=== PATIENT | male | born 1945 | race Caucasian/White ===

== ENCOUNTER 2019-09-20 17:37 | Emergency (ER) | payer MEDICARE, SELFPAY ==
--- NOTE | ~2019-09-20 | CT_ITS ---
EXAMINATION: CT abdomen pelvis w con DATE: 09/20/2019 19:28 INDICATION: Colon cancer presenting with abdominal pain and diarrhea TECHNIQUE: Computed tomography (CT) of the abdomen and pelvis was performed with 100 mL Omnipaque-350 intravenous contrast. Automated exposure control and iterative reconstruction technique were employe d. The dose-length product was 1248.46 mGy-cm. COMPARISON: 01/07/2019 FINDINGS: Mild atelectasis in the dependent aspect of the lingula, right middle and bilateral lower lobes. Bord kristin heart size with right ventricular enlargement. Enlargement of the right main pulmonary artery which can be seen with pulmonary arterial hypertension. No pericardial or pleural effusion. Bilateral gynecomastia. Again seen is is high attenuation material likely either sludge or gallstones filling the gallbladder which is distended to 4 cm in maximal diameter. There is a trace amount of pericholecystic fluid at the gallbladder fossa versus mild edematous wall thickening which is concerning for acute cholecystitis. A couple small low -attenuation lesions along the inferior margin of the right hepatic lobe the larger measuring 12 mm w hich is unchanged since the prior study and the smaller measuring 5 mm which is not evident on the pr ior study. Spleen, bilateral adrenal glands and right kidney are normal. A few tiny punctate calcific ation is at the body of the pancreas likely sequela of chronic pancreatitis. 4.8 cm exophytic cyst ar ising from the upper pole of the left kidney. Bladder wall thickening and haziness to the immediately surrounding fat which could be seen with cystitis. Prior colon surgery for reported colon cancer wit h anastomotic suture lines at the distal rectum and ileocolic anastomosis. No bowel obstruction. No s ignificant interval change in several soft tissue deposits in the right upper quadrant situated betwe en the hepatic flexure of the colon and the gastric antrum the largest measuring 5.9 x 2.1 cm consist ent with likely peritoneal metastatic disease. No free intraperitoneal gas or fluid. No pathologicall y enlarged abdominal or pelvic lymphadenopathy. Severe lumbar spondylosis. No suspicious lytic or ladonna stic bone lesions. Callus formation about a healing likely chronic posterior left 10th rib fracture. IMPRESSION: 1. Again seen is edematous gallbladder wall thickening versus small amount pericholecystic fluid with heterogeneous attenuation in the gallbladder lumen. Although appearance does raise suspicion for acu te cholecystitis a HIDA scan for after the prior study was normal and differential for the wall thick ening would include liver disease, heart failure or other generalized edema forming states. 2. Likely chronic cystitis with diffuse bladder wall thickening and mild stranding in the surrounding fat. Correlate with urinalysis. 3. No interval change in soft tissue deposits in the right upper quadrant, the largest measuring 5.9 x 2.1 cm suspicious for peritoneal metastatic disease. 4. Borderline heart size with right ventricular enlargement and enlargement of the right main pulmona ry artery which can be seen with pulmonary arterial hypertension. Reviewed, dictated and finalized at location A. IMPRESSION: 1. Again seen is edematous gallbladder wall thickening versus small amount talat cholecystic fluid with heterogeneous attenuation in the gallbladder lumen. Alth ough appearance does raise suspicion for acute cholecystitis a HIDA scan for af ter the prior study was normal and differential for the wall thickening would i nclude liver disease, heart failure or other generalized edema forming states. 2. Likely chronic cystitis with diffuse bladder wall thickening and mild strand ing in the surrounding fat. Correlate with urinalysis. 3. No interva
[2019-09-20 18:02] VITALS: BP 165/108; PULSE 73; RESP 20; TEMP 36.8; O2SAT 100
[2019-09-20 18:24] LABS: Basophils Percent Auto 0.6 % (0.2-1.2); Eosinophils Absolute Auto 0.2 K/mm3 (0-0.3); Eosinophils Percent Auto 3.1 % (0-4.4); Hematocrit 45.3 % (42.0-52.0); Hemoglobin 14.8 g/dL (14.0-18.0); Immature Granulocyte Absolute 0.03 K/mm3 (0.00-0.031); Immature Granulocyte Percent A 0.4 % (0-0.5); Lymphocytes Absolute Auto 0.95 K/mm3 (0.9-3.2); Lymphocytes Percent Auto 13.5 % (18.3-44.2); Mean Corpuscular HGB Conc 32.7 g/dl (32-36); Mean Corpuscular Hemoglobin 29.9 pg (26-34); Mean Corpuscular Volume 91.5 fl (80-100); Mean Platelet Volume 10.9 fl (7.4-10.4); Monocytes Absolute Auto 0.6 K/mm3 (0.1-0.6); Monocytes Percent Auto 8.3 % (2.6-8.5); Neutrophils Absolute Auto 5.2 K/mm3 (1.3-6.7); Neutrophils Percent Auto 74.1 % (45.5-73.1); Platelet Count Result 143 k/mm3 (150-375); Red Blood Count 4.95 M/mm3 (4.6-6.20); Red Cell Distribution Width 15.9 % (11.5-14.5)
[2019-09-20 18:35] LABS: Alanine Aminotransferase 18 U/L (4-50); Alkaline Phosphatase 111 U/L (38-126); Aspartate Amino Transferase 27 U/L (17-59); Bilirubin,Total 0.6 mg/dL (0.2-1.3); Blood Urea Nitrogen 16 mg/dL (9-20); Calcium 8.6 mg/dL (8.4-10.2); Carbon Dioxide 24 mmol/L (22-30); Chloride 104 mmol/L (98-107); Estimated CRCL calculation 55 ml/min; Estimated Glomerular Filt Rate 59; Glucose 116 mg/dL (75-110); Lipase 31 U/L (23-300); Potassium 3.4 mmol/L (3.4-5.0); Sodium 136 mmol/L (137-145)
[2019-09-20 19:05] VITALS: BP 141/94; PULSE 78; RESP 18; O2SAT 96
--- NOTE | 2019-09-20 19:49 | ED.NAVMDI ---
HPI - Nausea/Vomiting/Diarrhea General Chief complaint: Nausea/Vomiting/Diarrhea Stated complaint: diarrhea Time Seen by Provider: 09/20/19 18:40 Source: patient Mode of arrival: ambulatory Limitations: no limitations History of Present Illness HPI Narrative: This is a 74-year-old male that presents to the emergency department for diarrhea x4 days. Reports he is in a study for an investigational drug for his colon cancer. Reports he takes it oral chemotherapy daily for 21 days and then is off for a week. He is on his eighth cycle of this. Reports he does normally have diarrhea with this chemotherapy medication, but is been worse than usual this time. Denies fever, abdominal pain, vomiting, or hematochezia. Related Data Home Medications Medication Instructions Recorded Confirmed Cholestyramine Light 09/20/19 acetaminophen [Tylenol Arthritis mg PO 09/20/19 Pain] amitriptyline 10 mg PO HS 09/20/19 09/20/19 diclofenac sodium 75 mg PO BID 09/20/19 dicyclomine 10 mg PO BID 09/20/19 diphenoxylate-atropine [Lomotil] 1 tablet PO TID PRN 09/20/19 famotidine [Pepcid] 20 mg PO BID 09/20/19 gabapentin 400 mg PO BID 09/20/19 levothyroxine 50 mcg PO DAILY 09/20/19 [id number] [Creon] cap PO 09/20/19 loperamide [Imodium A-D] 2 mg PO Q4H PRN 09/20/19 methylphenidate HCl [Ritalin] 10 mg PO DAILY 09/20/19 Allergies Allergy/AdvReac Type Severity Reaction Status Date / Time lorazepam Allergy Severe GETS Verified 02/02/19 09:36 RESTLESS AND COMBATIVE alprazolam Allergy Unknown anxiety Verified 01/27/19 14:19 atropine Allergy Unknown Verified 01/27/19 14:19 codeine Allergy Unknown Verified 01/27/19 14:19 PROPOXYPHENE HCL AdvReac Severe N/V Uncoded 02/02/19 09:36 Review of Systems Review of Systems: Narrative: CONSTITUTIONAL: Denies fever GASTROINTESTINAL: Reports diarrhea. Denies abdominal pain, nausea, vomiting GENITOURINARY: Denies dysuria or hematuria. All systems reviewed & are unremarkable except as noted in HPI and below PMFSH Past Medical History Medical History (Updated 09/20/19 @ 22:08 by Dee Smith PA-C) History of BPH History of colon cancer History of hypertension History of hypothyroidism Family History Family History (Updated 09/07/17 @ 08:45 by DOCTOR UNKNOWN) Father Acute myocardial infarction Family history of kidney disease Mother Family history of Parkinson's disease Carcinoma of colon Family history of Alzheimer's disease Social History Social History Smoking status: Never smoker Alcohol intake: never Gender identity (if verbalized by the patient): Male Exam Narrative: Exam Narrative: GENERAL: Well-appearing, obese, and in no acute distress. HEAD: Normocephalic, atraumatic. EYES: EOMI. CHEST: Clear to auscultation. No respiratory distress. No wheezes rales or rhonchi HEART: Regular rate and rhythm. No murmur heard. Normal peripheral pulses. ABDOMEN: Soft, nontender, nondistended, hyperactive bowel sounds. EXTREMITIES: Normal range of motion. No edema. SKIN: Warm, dry, no rash. NEURO: No focal deficits. Alert and oriented x3. PSYCH: Normal mood and affect Course Vital Signs Vital signs: Vital Signs Temperature 98.3 F 09/20/19 18:02 Pulse Rate 73 09/20/19 18:02 Respiratory Rate 20 09/20/19 18:02 Blood Pressure 165/108 H 09/20/19 18:02 Pulse Oximetry 100 09/20/19 18:02 Temperature 98.3 F 09/20/19 18:02 Pulse Rate 78 09/20/19 20:33 Respiratory Rate 18 09/20/19 20:33 Blood Pressure 163/98 H 09/20/19 20:33 Pulse Oximetry 100 09/20/19 20:33 MDM - Nausea/Vomiting/Diarrhea MDM Narrative Medical decision making narrative: Patient presents to the ER for diarrhea x 4 days. Has history of metastatic colon cancer and sees an oncologist at [place]. Is on a clinical trial medication. Has had diarrhea with this medication, but was a little worse than usual. Patient is afebrile and nontoxic-appearin
[2019-09-20 20:10] LABS: Lactic Acid Reflex 0.8 mmol/L (0.7-2.1)
[2019-09-20 20:15] LABS: Add Urine Microscopic? NO; Appearance Urine Clear (Clear); Bilirubin Urine Negative (Negative); Blood Urine Negative (Negative); Color Urine Colorless (Yellow); Glucose Urine UA Negative (Negative); Ketones Urine Negative (Negative); Leukocyte Esterase Ur Negative LEU/UL (Negative); Nitrate Urine Negative (Negative); Protein Urine Negative (Negative); Urobilinogen Urine Negative mg/dL (<2.0)
[2019-09-20 20:17] LABS: Specific Grav Ur 1.004 (1.001-1.035)
[2019-09-20 20:33] VITALS: BP 163/98; PULSE 78; RESP 18; O2SAT 100
[2019-09-20] MEDS: SODIUM CHLORIDE 0.9% IV 500 ML 999 ML IV CONT (21:27)
[2019-09-20 22:20] VITALS: BP 134/84; PULSE 79; RESP 19; TEMP 37.2; O2SAT 100
== END 2019-09-20 22:21 | disposition home or self-care (01) ==
PROVIDERS: Physician Assistant; Emergency Provider Emergency Medicine; PCP Family Medicine
DX: R19.7 Diarrhea, unspecified (principal); I10 Essential (primary) hypertension; E03.9 Hypothyroidism, unspecified; Z85.038 Personal history of other malignant neoplasm of large intestine
CPT/HCPCS: 36415; 74177; 80053; 81003; 83605; 83690; 85025; 99284; J7040; Q9967

== ENCOUNTER 2021-02-10 19:09 | Emergency (ER) | payer MEDICARE, SELFPAY ==
--- NOTE | ~2021-02-10 | CT_ITS ---
EXAMINATION: CT abdomen pelvis wo con DATE: 02/10/2021 23:14 INDICATION: Abdominal pain TECHNIQUE: Computed tomography (CT) of the abdomen and pelvis was performed without intravenous contr ast. The dose-length product (DLP) was 798.30 mGy-cm. Automated exposure control and iterative recons truction technique were employed. COMPARISON: 09/20/2019 FINDINGS: Minimal dependent atelectasis is present in the lung bases. The heart size is normal. Bilat eral gynecomastia is noted. Stones are present in the nondistended gallbladder. A 1.2 cm hypoattenuat ing lesion in the right hepatic lobe previously measured 0.8 cm (image 42). A 2.6 cm hypoattenuating lesion in the posterior right hepatic lobe previously measured 1.9 cm (image 52). The spleen, pancrea s, and adrenal glands are normal. The right kidney is unremarkable. There is a 5.7 cm cyst of the lef t kidney. No pathologically enlarged abdominal or pelvic lymph nodes are identified. There is no free intraperitoneal gas or evidence of bowel obstruction. There is circumferential wall thickening of th e urinary bladder. There is severe lumbar spondylosis. IMPRESSION: 1. Cholelithiasis without evidence of cholecystitis. 2. Indeterminate right hepatic lobe lesions with slight interval enlargement. Follow-up MRI without a nd with contrast recommended. 3. Wall thickening of the urinary bladder which could reflect cystitis or chronic outlet obstruction. Reviewed, dictated and finalized at location B. K ABSORPTION FLOOR LAYER IMPRESSION: 1. Cholelithiasis without evidence of cholecystitis. 2. Indeterminate right hepatic lobe lesions with slight interval enlargement. F ollow-up MRI without and with contrast recommended. 3. Wall thickening of the urinary bladder which could reflect cystitis or chron ic outlet obstruction.
[2021-02-10 19:34] VITALS: BP 168/102; PULSE 68; RESP 16; TEMP 36.2; O2SAT 100
[2021-02-10 19:58] LABS: Basophils Absolute Auto 0.1 K/mm3 (0.0-0.1); Basophils Percent Auto 0.8 % (0.2-1.2); Eosinophils Absolute Auto 0.4 K/mm3 (0-0.3); Hematocrit 42.4 % (42.0-52.0); Immature Granulocyte Absolute 0.02 K/mm3 (0.00-0.031); Immature Granulocyte Percent A 0.3 % (0-0.5); Immature Platelet Fraction Pct 5.7 % (0.9-11.2); Lymphocytes Absolute Auto 1.07 K/mm3 (0.9-3.2); Mean Corpuscular HGB Conc 30.7 g/dl (32-36); Mean Corpuscular Volume 94.4 fl (80-100); Mean Platelet Volume 10.8 fl (7.4-10.4); Monocytes Absolute Auto 0.8 K/mm3 (0.1-0.6); Monocytes Percent Auto 10.5 % (2.6-8.5); Neutrophils Absolute Auto 5.3 K/mm3 (1.3-6.7); Neutrophils Percent Auto 69.4 % (45.5-73.1); Platelet Count Result 145 k/mm3 (150-375); Red Blood Count 4.49 M/mm3 (4.6-6.20); Red Cell Distribution Width 18.3 % (11.5-14.5); White Blood Count 7.7 K/mm3 (4.5-10.0)
[2021-02-10 20:06] LABS: INR 1.1; Prothrombin Time 14.4 Seconds (11.1-14.7)
[2021-02-10 20:07] LABS: Partial Thromboplastin Time 33.7 SECONDS (22.3-36.8)
[2021-02-10 20:20] LABS: Alanine Aminotransferase 14 U/L (4-50); Albumin Level 3.8 g/dL (3.5-5.1); Alkaline Phosphatase 77 U/L (38-126); Anion Gap 11 mmol/L (8-16); Aspartate Amino Transferase 24 U/L (17-59); Bilirubin,Total 0.6 mg/dL (0.2-1.3); Blood Urea Nitrogen 38 mg/dL (9-20); Calcium 9.1 mg/dL (8.4-10.2); Carbon Dioxide 22 mmol/L (22-30); Chloride 106 mmol/L (98-107); Estimated CRCL calculation 37 ml/min; Estimated Glomerular Filt Rate 39; Glucose 90 mg/dL (65-110); Potassium 4.1 mmol/L (3.4-5.0); Sodium 139 mmol/L (137-145)
--- NOTE | 2021-02-10 22:32 | ED.GIBLEED ---
HPI - GI Bleed General Source: RN notes reviewed History of Present Illness HPI Narrative: Patient presents emergency department from home for GI bleed. Patient noted to have dark red blood in his stool since last night states has had several episodes of blood in the stool. Patient states that with this is associated with lower abdominal cramping denies any fevers or chills chest pain or shortness of breath. Patient states he is currently on chemotherapy for colorectal cancer and is followed by oncology at [facility]. Patient denies any nausea vomiting or any other symptoms Related Data Home Medications Medication Instructions Recorded Confirmed Cholestyramine Light 09/20/19 01/08/21 acetaminophen [Tylenol Arthritis mg PO 09/20/19 01/08/21 Pain] diphenoxylate-atropine [Lomotil] 1 tablet PO TID PRN 09/20/19 01/08/21 famotidine [Pepcid] 20 mg PO BID 09/20/19 01/08/21 gabapentin 400 mg PO BID 09/20/19 01/08/21 [id number] [Creon] cap PO 09/20/19 01/08/21 loperamide [Imodium A-D] 2 mg PO Q4H PRN 09/20/19 01/08/21 methylphenidate HCl [Ritalin] 10 mg PO DAILY 09/20/19 01/08/21 levothyroxine 75 mcg capsule 75 mcg PO DAILY 01/23/21 Allergies Allergy/AdvReac Type Severity Reaction Status Date / Time lorazepam Allergy Severe GETS Verified 01/08/21 10:05 RESTLESS AND COMBATIVE alprazolam Allergy Unknown anxiety Verified 01/08/21 10:05 atropine Allergy Unknown Unknown Verified 01/08/21 10:05 codeine Allergy Unknown Unknown Verified 01/08/21 10:05 PROPOXYPHENE HCL AdvReac Severe N/V Uncoded 01/08/21 10:05 Review of Systems Review of Systems: Gen.: Denies fevers or chills ENT: Denies congestion Respiratory: Denies shortness of breath or cough CV: Denies chest pain or palpitations GI: See HPI Musculoskeletal: Denies back pain or muscle pain Neuro: Denies numbness, tingling, weakness or focal weakness Skin: Denies rash Except as documented, all other systems reviewed and negative PMFSH Past Medical History Medical History Colon cancer metastasized to liver History of BPH History of colon cancer History of hypertension History of hypothyroidism Omental metastasis Other abnormal glucose Secondary malignant neoplasm of retroperitoneum and peritoneum Surgical History Surgical History Ileostomy status Family History Family History Father Acute myocardial infarction Family history of kidney disease Mother Family history of Parkinson's disease Carcinoma of colon Family history of Alzheimer's disease Social History Social History Smoking status: Never smoker Alcohol intake: never Gender identity (if verbalized by the patient): Male Exam Narrative: APPEARANCE: No acute distress, nontoxic, resting in bed HEENT: Normocephalic, atraumatic, OMM RESPIRATORY: No respiratory distress, clear to auscultation bilaterally with no rhonchi wheezing or rales CARDIOVASCULAR: RRR s murmur ABDOMINAL: Soft nondistended tender palpation right lower quadrant left lower quadrant no tenderness right upper quadrant left upper quadrant no rebound or guarding Rectal: No hemorrhoids positive dark black stool that is Hemoccult positive MUSCULOSKELETAl: Moves all extremities. No clubbing, cyanosis or edema. NEURO: Awake and alert. Following commands, speech normal, no focal deficits SKIN:: Warm, dry. Normal Color PSYCHIATRIC: Normal affect/mood Course Course Emergency Course: Discussed with patient and the patient is on experimental chemo treatment with oncology at [place] is had several surgeries at [place] but this time will transfer back to [place] Discussed with Dr. Kennedy for Dr. Mohamud who accepts admission to [facility] at this time 02/11 657 discussed with patient and rena
[2021-02-10 23:35] VITALS: PULSE 69; RESP 22; O2SAT 99
[2021-02-10 23:36] VITALS: BP 173/108; PULSE 69; RESP 19; O2SAT 98
[2021-02-10] MEDS: SODIUM CHLORIDE 0.9% IV 1,000 ML 999 ML IV CONT (23:37)
[2021-02-10 23:45] VITALS: PULSE 66; RESP 19; O2SAT 100
[2021-02-11] VITALS (31 sets, daily range): BP systolic 148–175; BP diastolic 101–123; PULSE 67–114; RESP 13–26; TEMP 36.5; O2SAT 92–100
[2021-02-11 00:02] LABS: Lactic Acid Reflex 2.1 mmol/L (0.7-2.1)
--- NOTE | 2021-02-11 00:11 | PC.NURSE ---
Sheldon from [facility] access line calls to get triage info on patient. She leaves her phone number [phone] to call when covid result is available. She also states that she will call when a bed is available.
[2021-02-11 00:13] LABS: EDCOVIDSCREEN Negative (Negative)
--- NOTE | 2021-02-11 00:22 | PC.NURSE ---
Contacted Sheldon from [facility] Access line to inform of the negative covid swab. She states she will notify her bed team and call back when a bed is available.
[2021-02-11] MEDS: SODIUM CHLORIDE 0.9% IV 1,000 ML 125 ML IV CONT (01:09)
--- NOTE | 2021-02-11 02:16 | PC.NURSE ---
Patient report called to ROSSANA Glover at [facility] at 0211.
[2021-02-11 02:50] LABS: Reflex Lactic Acid Yes or No Add Lactic
--- NOTE | 2021-02-11 06:45 | PC.NURSE ---
Went in to get repeat labs and patient refused. Patient requesting to speak to the provider to sign out AMA. Patient informed on eta for EMS. Patient and family stating they want to speak to provider. ERP notified.
--- NOTE | 2021-02-11 06:52 | PC.NURSE ---
ERP speaking with patient at this time.
--- NOTE | 2021-02-11 07:30 | PC.NURSE ---
paola made contact with ED law secretary stated they are sending a truck now to transfer [place] [id number] bed 1
--- NOTE | 2021-02-11 08:34 | PC.NURSE ---
[facility] crew arrived at 0828. crew is aware that pt is going to [facility] [id number] bed 1
== END 2021-02-11 08:46 | disposition short-term general hospital (02) ==
PROVIDERS: Emergency Provider Emergency Medicine; PCP Family Medicine
DX: K92.2 Gastrointestinal hemorrhage, unspecified (principal); N28.9 Disorder of kidney and ureter, unspecified; C19 Malignant neoplasm of rectosigmoid junction; C78.7 Secondary malignant neoplasm of liver and intrahepatic bile duct; C78.6 Secondary malignant neoplasm of retroperitoneum and peritoneum; Z20.822 Contact with and (suspected) exposure to COVID-19; N40.0 Benign prostatic hyperplasia without lower urinary tract symptoms; I10 Essential (primary) hypertension; E03.9 Hypothyroidism, unspecified; K80.20 Calculus of gallbladder without cholecystitis without obstruction; K76.9 Liver disease, unspecified; R93.41 Abnormal radiologic findings on diagnostic imaging of renal pelvis, ureter, or bladder
CPT/HCPCS: 36415; 74176; 80053; 83605; 85025; 85055; 85610; 85730; 86850; 86900; 86901; 87426; 96360; 96361; 99285; C9803; J7030

== ENCOUNTER 2021-03-08 14:59 | Outpatient (CLI) | payer MEDICARE, SELFPAY ==
--- NOTE | ~2021-03-08 | XR_ITS ---
EXAMINATION: XR abdomen obstructive series DATE: 03/08/2021 15:31 INDICATION: Constipation. TECHNIQUE: Upright and supine views of the abdomen on 3 radiographs were obtained. COMPARISON: CT abdomen and pelvis 02/10/2021 FINDINGS: There are no dilated loops of bowel. There is a moderate volume of stool in the colon. No f ree intraperitoneal gas. A gastrostomy tube is noted. IMPRESSION: 1. Nonobstructive bowel gas pattern. Reviewed, dictated and finalized at location A. INE HELPER
== END 2021-03-08 15:00 | disposition home or self-care (01) ==
LOC: ANHIMG 15:05
PROVIDERS: PCP Family Medicine; Visit Provider Internal Medicine Medical Oncology
DX: K59.00 Constipation, unspecified (principal)
CPT/HCPCS: 74019

== ENCOUNTER 2021-03-21 13:24 | Outpatient (CLI) | payer MEDICARE, SELFPAY ==
--- NOTE | ~2021-03-21 | CT_ITS ---
EXAMINATION: CT abdomen pelvis w con DATE: 03/21/2021 14:08 INDICATION: Metastatic colon cancer TECHNIQUE: Computed tomography (CT) of the abdomen and pelvis was performed with 100 cc Omnipaque 350 intravenous contrast. The dose-length product was 1481.53 mGy-cm. Automated exposure control and ite rative reconstruction technique were employed. COMPARISON: CT dated 02/10/2021. FINDINGS: There is dependent atelectasis. Heart size normal. Trace left pleural effusion. There is at herosclerosis of the aorta. No evidence for aneurysm. Status post right hemicolectomy. Gastric tube i n expected position. There are gallstones. Gallbladder is distended. There is an enlarging hypovascul ar lesion of the right hepatic lobe posteriorly measuring 2.8 x 1.3 cm compared with 1.4 x 0.9 cm on 09/20/2019, concerning for metastatic disease. There is an enlarging hypovascular lesion of the right hepatic lobe just posterior to the gallbladder measuring 1.4 x 1.3 cm compared with 5 x 4 mm on prior examination. The spleen, pancreas, adrenal glands are unremarkable. There is bilateral renal cortica l thinning. There is an exophytic left renal cyst measuring 5.6 cm maximum dimension. There is nonobs tructive bowel gas pattern. Moderate colonic fecal loading. Severe lumbar spondylosis with levoscolio sis. No focal lytic or blastic lesions. IMPRESSION: 1. Enlarging hypovascular lesions of the right hepatic lobe, concerning for metastatic disease. 2: Cholelithiasis with gallbladder distention. Possible mild gallbladder wall thickening. Consider ch olecystitis in the appropriate clinical setting. Reviewed, dictated and finalized at location A. BULANCE DRIVER PARAMEDIC IMPRESSION: 1. Enlarging hypovascular lesions of the right hepatic lobe, concerning for met astatic disease. 2: Cholelithiasis with gallbladder distention. Possible mild gallbladder wall t hickening. Consider cholecystitis in the appropriate clinical setting.
[2021-03-21 14:00] LABS: Estimated Glomerular Filt Rate 49
== END 2021-03-21 13:25 | disposition home or self-care (01) ==
LOC: ANHIMG 13:29
PROVIDERS: PCP Family Medicine; Visit Provider Internal Medicine Medical Oncology
DX: C18.8 Malignant neoplasm of overlapping sites of colon (principal); K80.20 Calculus of gallbladder without cholecystitis without obstruction
CPT/HCPCS: 74177; Q9967

== ENCOUNTER 2021-03-22 11:05 | Outpatient (CLI) | payer MEDICARE, SELFPAY ==
--- NOTE | ~2021-03-22 | XR_ITS ---
EXAMINATION: XR barium swallow modified DATE: 03/22/2021 12:05 INDICATION: Dysphagia. TECHNIQUE: The patient was given barium-containing material of multiple consistencies to swallow by t darya speech pathologist while I performed fluoroscopy. Fluoroscopy exposure time was 1.3 minutes. The n umber of fluoroscopy images saved to the PACS was 1. Dose-area product was 0.892 Gy-cm^2. FINDINGS: There was reduced laryngeal elevation, reduced laryngeal adduction, reduced tongue base retraction, v allecular residue, pyriform sinus residue, laryngeal penetration, and silent aspiration. IMPRESSION: 1. Silent aspiration. 2. Please refer to the speech therapy report for recommendations. Reviewed, dictated and finalized at location A. QUE CLOCKS REPAIRER
--- NOTE | 2021-03-22 14:24 | STOPEVAL ---
MODIFIED BARIUM SWALLOW EVALUATION: Thank you for referring Eagle Mendez to [facility].? Attending Provider: Ramakrishna Brown, DO FAX: [phone] FAX RESULTS TO: ATTN: YANCY @ JACIELJESSICA [phone] *ST Outpatient Evaluation Outpatient Past Medical History Past Medical History Source of Past Medical History Patient Gastrointestinal History Hx Other Gastrointestinal Disorders Yes: PEG tube Jan 2021 r/t dysphagia; MBS at [facility] Other History Hx Cancer Yes: bowel per pt under control and denies dysphagia relation Prior Level of Function Home Setting Living Situation With Spouse Prior Swallow Level Prior Intake Method PEG Tube Comments Additional Prior Level of Function Pt reports he had a previous Comments MBS at a [facility] which revealed need for NPO and PEG. Modified Barium Swallow Evaluation Recent Swallowing History Reports Dysphagia Yes: previous dx Onset of Dysphagia January 2021 History of Dysphagia No Other Factors Impacting Dysphagia None History of Pneumonia No Reported Difficult Consistencies Thin Liquids,Thick Liquids, Pureed,Liquid/Solid Mix,Pills, Solids Intake Method Prior to Swallow Gastrostomy,NPO Evaluation Consistency Pureed Consistency Other Amount with chin tuck Method of Presentation Spoon Oral Preparatory Symptoms Within Functional Limits Oral Phase Symptoms None Pharyngeal Phase Symptoms Aspiration,Laryngeal Penetration,Reduced Laryngeal Closure,Reduced Laryngeal Elevation,Reduced Lingual Pressure,Residue in Vallecuale Severity of Vallecular Residue Severe - > 50% Filled to Epiglottic Rim 8 Point Laryngeal Penetration-Aspiration Material Enters Airway Below Scale Vocal Cords, No Effort Made to Eject Aspiration Timing After the Swallow Aspiration Severity Moderate Pharyngeal Phase Comments vallecular residual spilled into pyriform sinus; laryngeal penetration & then (silent) aspiration subsequently occurred after the swallow. Attempted to coach tour driver pt through use of supraglottic swallow; however, it was unsuccessful. Thin 5 mL Method of Presentation Spoon Oral Preparatory Symptoms None Oral Phase Symptoms None Pharyngeal Phase Symptoms Aspiration,Laryng
== END 2021-03-22 11:06 | disposition home or self-care (01) ==
LOC: ANHIMG 11:08
PROVIDERS: PCP Family Medicine; Visit Provider Internal Medicine Medical Oncology
DX: R13.10 Dysphagia, unspecified (principal)
CPT/HCPCS: 92611

== ENCOUNTER 2021-04-25 10:23 | Outpatient (CLI) | payer MEDICARE, SELFPAY ==
--- NOTE | ~2021-04-25 | XR_ITS ---
XR fl port a cath w contrast DATE: 04/25/2021 11:17 INDICATION: Malfunctioning Port-A-Cath TECHNIQUE: Fluoroscopy and rapid spot radiographs were obtained during injection of contrast material by the ICU nurse into the Port-A-Cath. There is retention of contrast material at the tip of the Port-A-Cath during contrast material inject ion, consistent with some fibrin accumulation at the tip of the catheter. IMPRESSION: Fibrin accumulation at tip of Port-A-Cath Reviewed, dictated and finalized at Location A. Reviewed, dictated and finalized at location A. ICAL LABORATORY SCIENCE PROFESSOR
== END 2021-04-25 10:24 | disposition home or self-care (01) ==
LOC: ANHIMG 10:29
PROVIDERS: Visit Provider Internal Medicine Medical Oncology
DX: Z45.9 Encounter for adjustment and management of unspecified implanted device (principal)
CPT/HCPCS: 36598; Q9966

== ENCOUNTER 2021-05-06 12:41 | Outpatient (CLI) | payer MEDICARE, SELFPAY ==
--- NOTE | ~2021-05-06 | XR_ITS ---
MODIFIED ESOPHAGRAM HISTORY: Dysphagia. TECHNIQUE: Modified barium esophagram was performed on 05/06/2021. I administered fluoroscopy and perf ormed the exam with speech pathologist. Patient was seated for lateral fluoroscopic imaging for anisha stion of thin liquids, pudding, solids and quantified amounts, followed by thin liquids in uncontroll ed amounts. This was recorded on tape. A single fluoroscopic spot image was also recorded. The DAP fo r this procedure was 3.075 Gycm2. The amount of fluoroscopy time used during this procedure was 4.5 m inutes. FINDINGS: Oral stage: Adequate function with slow/prolonged mastication. Pharyngeal stage: There is residual penetration with small amount of silent aspiration following the swallow. Reduced laryngeal elevation and small amount of residue in the vallecula. Cervical/esophageal stage: Adequate function. IMPRESSION: Laryngeal penetration with small amount of silent aspiration. Please correlate with erika orellana pathologist findings and specific feeding recommendations. Reviewed, dictated and finalized at location A. HOUSE SUPERVISOR IMPRESSION: Laryngeal penetration with small amount of silent aspiration. Plea se correlate with speech pathologist findings and specific feeding recommendati ons.
--- NOTE | 2021-05-07 15:32 | STOPEVAL ---
MODIFIED BARIUM SWALLOW EVALUATION: Thank you for referring Eagle Mendez to [facility] Attending Provider: Ramakrishna Brown, DO [phone] & to Joanna @ fax #: [phone] Outpatient Past Medical History Past Medical History Source of Past Medical History Patient,Family/Significant Other Gastrointestinal History Hx Other Gastrointestinal Disorders Yes: PEG tube Jan 2021 r/t dysphagia; MBS at [facility] Genitourinary History Hx Other Genitourinary Disorders Yes: bleeding issues Other History Hx Cancer Yes: bowel per pt under control and denies dysphagia relation Prior Level of Function Home Setting Living Situation With Spouse Prior Swallow Level Prior Intake Method PEG Tube Comments Additional Prior Level of Function Previous MBS' were completed Comments and revealed need for NPO and PEG. Most recent MBS prior to this date was 03/22/21 Modified Barium Swallow Evaluation Recent Swallowing History Reports Dysphagia Yes Onset of Dysphagia January 2021 History of Dysphagia Yes History of Pneumonia No Reported Difficult Consistencies Thin Liquids,Thick Liquids, Pureed,Liquid/Solid Mix,Pills, Solids Intake Method Prior to Swallow Gastrostomy,NPO Evaluation Consistency Moderately Thick 5 mL Other Amount in chin tuck position due to posture Method of Presentation Spoon Oral Preparatory Symptoms Within Functional Limits Oral Phase Symptoms Within Functional Limits Pharyngeal Phase Symptoms Laryngeal Penetration,Reduced Laryngeal Elevation 8 Point Laryngeal Penetration-Aspiration Material Enters Airway Below Scale Vocal Cords, No Effort Made to Eject Aspiration Timing After the Swallow Aspiration Severity Mild Cervical/Esophageal Symptoms Within Functional Limits Solid Consistency Other Amount in chin tuck position due to posture Method of Presentation Spoon Oral Preparatory Symptoms Within Functional Limits Oral Preparatory Phase Comments decreased dentition; slow mastication Oral Phase Symptoms Within Functional Limits Pharyngeal Phase Symptoms Aspiration,Laryngeal Penetration,Reduced Laryngeal Elevation 8 Point Laryngeal Penetration-Aspiration Material Enters Airway Below Scale Vocal Cords, No Effort Made to Eject Aspiration Timing After t
== END 2021-05-06 12:42 | disposition home or self-care (01) ==
PROVIDERS: Visit Provider Internal Medicine Medical Oncology
DX: R13.10 Dysphagia, unspecified (principal)
CPT/HCPCS: 92611

== ENCOUNTER 2021-05-07 08:19 | Observation (INO) | payer MEDICARE, SELFPAY ==
[2021-05-07] VITALS (19 sets, daily range): BP systolic 101–124; BP diastolic 57–89; PULSE 57–85; RESP 0–22; TEMP 36.2–37.1; O2SAT 91–100; BMI 32.8
--- NOTE | ~2021-05-07 | XR_ITS ---
XR shoulder RT min 2V DATE: 05/07/2021 09:16 INDICATION: Fall. Right shoulder pain. TECHNIQUE: 4 views COMPARISON: None FINDINGS: Diffuse idiopathic skeletal hyperostosis of the thoracic spine. No fracture or dislocation, periosteal reaction or bone destruction or abnormal soft tissue calcifica tion of the right shoulder. Right Port-A-Cath. IMPRESSION: No significant radiographic abnormality of the right shoulder Diffuse idiopathic skeletal hyperostosis of the thoracic spine Reviewed, dictated and finalized at location B. BALANCER
--- NOTE | ~2021-05-07 | CT_ITS ---
EXAMINATION: CT abdomen pelvis w con DATE: 05/07/2021 15:01 INDICATION: Abdominal mass. TECHNIQUE: Computed tomography (CT) of the abdomen and pelvis was performed with 100 mL Omnipaque 350 intravenous contrast. Automated exposure control and iterative reconstruction technique were employe d. The dose-length product was 1162.82 mGy-cm. COMPARISON: CT abdomen and pelvis 03/21/2021 FINDINGS: The visualized portions of the lung bases demonstrate mild atelectasis. There is a trace le ft pleural effusion. Cardiomegaly is noted. There are coronary artery calcifications. No pericardial effusion. There is bilateral gynecomastia. There are cysts in the liver measuring up to 17 mm. There are peritoneal masses including at the surface of the liver, consistent with metastatic disease. For example, a mass at the surface of right hepatic lobe measures 3.1 x 1.8 cm without change. There are gallstones in the gallbladder, which is distended. The spleen, pancreas, and adrenal glands are herber l. There is cortical thinning of the kidneys. There are cysts in the kidneys measuring up to 4.9 cm o n the left. The bladder is distended. The prostate is mildly enlarged. There is a large volume of sto ol in the colon. There are changes of appendectomy. There is a gastrostomy tube in expected position. There are no pathologically enlarged lymph nodes. There is no free intraperitoneal fluid. There are masses involving the anterior abdominal wall in the right rectus abdominis muscle and at the midline incision scar, consistent with metastatic disease. There is prominent fat in left inguinal hernia can al that may be a hernia. Body wall edema is noted. There is severe lumbar spondylosis and moderate th oracic spondylosis. IMPRESSION: 1. Stable peritoneal carcinomatosis including involvement of the liver surface and surgical sites in anterior abdominal wall. 2. Distended gallbladder filled with gallstones. Correlate with physical exam for any evidence of acu te cholecystitis. Reviewed, dictated and finalized at location A. CREW FOREMAN IMPRESSION: 1. Stable peritoneal carcinomatosis including involvement of the liver surface and surgical sites in anterior abdominal wall. 2. Distended gallbladder filled with gallstones. Correlate with physical exam f or any evidence of acute cholecystitis.
--- NOTE | ~2021-05-07 | CT_ITS ---
EXAMINATION: CT cervical spine wo con DATE: 05/07/2021 09:08 INDICATION: Patient fell this morning. Increased weakness. TECHNIQUE: Computed tomography (CT) of the cervical spine was performed without intravenous contrast. Automated exposure control and iterative reconstruction technique were employed. Exam dose: 473.01 mGy-cm total exam DLP. COMPARISON: 09/26/2013 MR cervical spine FINDINGS: C1 and C2 are normally aligned and the odontoid process is intact. No fracture or dislocation or locked facet. No prevertebral soft tissue swelling. Particularly prominent degenerative changes noted at the apophyseal joints in the lower cervical spin e. Mild degenerative disc disease. IMPRESSION: Cervical spondylosis; no fracture, dislocation or locked facet Reviewed, dictated and finalized at Location A. Reviewed, dictated and finalized at location B. TY PROBATION OFFICER
--- NOTE | ~2021-05-07 | XR_ITS ---
EXAMINATION: XR chest 2V DATE: 05/07/2021 09:16 INDICATION: Right shoulder pain post fall TECHNIQUE: AP and lateral views of the chest were obtained. COMPARISON: Chest CT dated 09/03/2018 FINDINGS: Right internal jugular central venous port catheter with distal tip at the midsuperior vena cava. Sma ll lung volumes with mild streaky bibasilar atelectasis. No pleural effusion or pneumothorax. Heart s ize is normal. Tortuous thoracic aorta. There are bridging osteophytes at multiple levels in the spin e, consistent with diffuse idiopathic skeletal hyperostosis (DISH). Percutaneous gastrostomy tube in the left upper quadrant. IMPRESSION: 1. Small lung volumes with mild streaky bibasilar atelectasis. Reviewed, dictated and finalized at location A. NE RETAILER
--- NOTE | ~2021-05-07 | CT_ITS ---
EXAMINATION: CT brain wo con DATE: 05/07/2021 09:08 INDICATION: Patient fell and struck his head this morning. Increased paresis. TECHNIQUE: Computed tomography (CT) of the head was performed without intravenous contrast. The mA wa s adjusted according to patient size. Iterative reconstruction technique was employed. Exam dose: 68 1.00 mGy-cm total exam DLP. COMPARISON: None FINDINGS: There is prominent cerebral volume loss as well as moderate cerebellar volume loss. There i s nonspecific diminished attenuation of the cerebral white matter, likely due to chronic small vessel ischemic changes. Bilateral carotid siphon internal carotid artery calcifications are noted. No intracranial mass lesion or hemorrhage or cerebrovascular accident is evident. No midline shift or mass effect. No subdural or epidural hematoma is detected. No fracture or bone destruction of the cranial vault. Minimal scattered soft tissue thickening of cornell e of the paranasal sinuses. The mastoid air cells are unremarkable. IMPRESSION: Prominent cerebral and cerebellar volume loss Cerebral atherosclerosis and chronic small vessel ischemic changes of the cerebral white matter No acute intracranial abnormality Reviewed, dictated and finalized at Location A. Reviewed, dictated and finalized at location B. RAL OFFICE FRAME WIRER IMPRESSION: Prominent cerebral and cerebellar volume loss Cerebral atherosclerosis and chronic small vessel ischemic changes of the cereb ral white matter No acute intracranial abnormality
--- NOTE | ~2021-05-07 | XR_ITS ---
XR foot LT min 3V DATE: 05/07/2021 09:16 INDICATION: Left toe pain TECHNIQUE: 4 views of left foot COMPARISON: 01/15/2017 left foot FINDINGS: There is spurring at the tibiotalar joint consistent with osteoarthritis. There is prominent joint space narrowing and prominent spurring at the first metatarsophalangeal join t consistent with osteoarthritis. No fracture, dislocation, periosteal reaction or bone destruction or erosive change is evident. Diffuse osteopenia. Moderately prominent plantar and posterior calcaneal enthesopathy. 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 WORKER
--- NOTE | 2021-05-07 08:30 | ECG_ITS ---
Measurements Intervals Turner Rate: 75 P: 7 HI: 225 QRS: -19 QRSD: 117 T: -7 QT: 379 QTc: 425 Interpretive Statements SINUS RHYTHM WITH FIRST DEGREE AV BLOCK CONSIDER INFERIOR INFARCT, AGE INDETERMINATE BASELINE ARTIFACT- I, II, III, AVR, AVL, AVF, V1, V3-V6 ABNORMAL ECG Electronically Signed On 05-07-2021 8:46:33 NAIL PROFESSIONAL by Reji Esteban D.O.
[2021-05-07 08:54] LABS: Basophils Percent Auto 0.4 % (0.2-1.2); Eosinophils Absolute Auto 0.2 K/mm3 (0-0.3); Eosinophils Percent Auto 1.7 % (0-4.4); Hemoglobin 10.7 g/dL (14.0-18.0); Immature Granulocyte Absolute 0.06 K/mm3 (0.00-0.031); Immature Granulocyte Percent A 0.7 % (0-0.5); Lymphocytes Absolute Auto 0.57 K/mm3 (0.9-3.2); Lymphocytes Percent Auto 6.2 % (18.3-44.2); Mean Corpuscular HGB Conc 31.5 g/dl (32-36); Mean Corpuscular Hemoglobin 30.2 pg (26-34); Mean Platelet Volume 9.5 fl (7.4-10.4); Monocytes Absolute Auto 1.1 K/mm3 (0.1-0.6); Monocytes Percent Auto 11.5 % (2.6-8.5); Neutrophils Absolute Auto 7.3 K/mm3 (1.3-6.7); Neutrophils Percent Auto 79.5 % (45.5-73.1); Platelet Count Result 181 k/mm3 (150-375); Red Blood Count 3.54 M/mm3 (4.6-6.20); Red Cell Distribution Width 15.9 % (11.5-14.5); White Blood Count 9.2 K/mm3 (4.5-10.0)
[2021-05-07] MEDS: SODIUM CHLORIDE 0.9% IV 1,000 ML 999 ML IV CONT (09:18)
--- NOTE | 2021-05-07 09:23 | ED.GENADULT ---
HPI - General Adult General Chief complaint: Weakness Stated complaint: increased weakness Time Seen by Provider: 05/07/21 08:26 Source: patient, family and RN notes reviewed History of Present Illness HPI narrative: Patient is a 75 y/o male complaining of severe generalized weakness for 3-4 weeks. There is no known alleviating or exacerbating factor. He fell today due to weakness. He has left great toe pain. He also hit his head, but denies LOC. He has some headache and right shoulder pain. He has no neck pain, back pain, chest pain or abdominal pain. Related Data Home Medications Medication Instructions Recorded Confirmed acetaminophen [Tylenol Arthritis 650 mg PO DAILY 09/20/19 01/08/21 Pain] gabapentin 400 mg PO BID 09/20/19 01/08/21 loperamide [Imodium A-D] 2 mg PO Q4H PRN 09/20/19 01/08/21 amlodipine 10 mg FEEDING TUBE DAILY 05/07/21 levothyroxine 88 mcg FEEDING TUBE DAILY 05/07/21 05/07/21 lisinopril 10 mg FEEDING TUBE DAILY 05/07/21 methylphenidate HCl [Ritalin] 20 mg FEEDING TUBE BID 05/07/21 metoclopramide HCl 10 mg FEEDING TUBE BID 05/07/21 05/07/21 tamsulosin 0.4 mg PO DAILY 05/07/21 trazodone 50 mg FEEDING TUBE HS 05/07/21 Allergies Allergy/AdvReac Type Severity Reaction Status Date / Time atropine Allergy Unknown Unknown Verified 05/07/21 09:17 codeine Allergy Unknown Unknown Verified 05/07/21 09:17 lorazepam AdvReac Severe GETS Verified 05/07/21 09:17 RESTLESS AND COMBATIVE propoxyphene AdvReac Severe Nausea and Verified 05/07/21 09:17 Vomiting alprazolam AdvReac Unknown anxiety Verified 05/07/21 09:17 Review of Systems Constitutional: Constitutional: Denies chills, Denies fever(s), Reports headache(s) and Denies weakness Eyes: Eyes: Denies blurry vision ENT: Reports headache(s) and Denies neck pain Cardiovascular: Cardiovascular: Denies chest pain and Denies dyspnea Respiratory: Respiratory: Denies cough and Denies dyspnea Gastrointestinal: Gastrointestinal: Denies abdominal pain, Denies diarrhea, Denies nausea and Denies vomiting Genitourinary: Genitourinary: Denies hematuria and Denies dysuria Musculoskeletal: Musculoskeletal: Reports as per HPI, Denies back pain, Denies neck pain and Reports other (left great toe pain and right shoulder pain) Neurologic: Reports headache(s) and Reports weakness PMFSH Past Medical History Medical History (Updated 05/07/21 @ 15:30 by Tierra Cruz MD) 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 Enlarged prostate with lower urinary tract symptoms (LUTS) Essential (primary) hypertension History of BPH History of colon cancer History of gastrostomy tube placement History of hypertension History of hypothyroidism Hypothyroid Mixed hyperlipidemia Obstructive sleep apnea (adult) (pediatric) Omental metastasis Other abnormal glucose Port-A-Cath in place 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 He does not use any alcohol drugs or marijuana. Code status full code Smoking status: Never smoker Alcohol intake: never Gender identity (if verbalized by the patient): Male
[2021-05-07 10:36] LABS: Alanine Aminotransferase 11 U/L (4-50); Albumin Level 2.6 g/dL (3.5-5.1); Alkaline Phosphatase 65 U/L (38-126); Anion Gap 5 mmol/L (8-16); Aspartate Amino Transferase 17 U/L (17-59); Bilirubin,Total 0.4 mg/dL (0.2-1.3); Blood Urea Nitrogen 30 mg/dL (9-20); Calcium 7.2 mg/dL (8.4-10.2); Carbon Dioxide 24 mmol/L (22-30); Chloride 109 mmol/L (98-107); Estimated CRCL calculation 62 ml/min; Estimated Glomerular Filt Rate > 60; Glucose 86 mg/dL (65-110); Potassium 3.2 mmol/L (3.4-5.0); Sodium 138 mmol/L (137-145)
[2021-05-07 10:40] LABS: Add Urine Microscopic? YES; Appearance Urine Clear (Clear); Bilirubin Urine Negative (Negative); Blood Urine Negative (Negative); Color Urine Yellow (Yellow); Glucose Urine UA Negative (Negative); Ketones Urine Negative (Negative); Leukocyte Esterase Ur Negative LEU/UL (Negative); Nitrate Urine Negative (Negative); Protein Urine Negative (Negative); RBC Urine 0-2 /hpf (0-2); Specific Grav Ur 1.012 (1.001-1.035); Squamous Epithelial Cell Urine Rare /hpf (Few); Urobilinogen Urine Negative mg/dL (<2.0)
[2021-05-07] MEDS: POTASSIUM CHLORIDE 20 MEQ PACKET (FOR LIQUID) 40 MEQ PO (10:51)
[2021-05-07] MEDS: TETANUS,DIPHTHERIA,AC PERTUSSIS ADULT (0.5 ML) BOOSTRIX IM (11:46)
[2021-05-07] MEDS: SODIUM CHLORIDE 0.9% IV 1,000 ML 125 ML IV CONT (11:59)
--- NOTE | 2021-05-07 12:02 | PC.NURSE ---
Per pt gets 380 ml of Osmolite QID at 12-17-16. Also gets 200 ml of water with each feeding.
--- NOTE | 2021-05-07 12:04 | PC.NURSE ---
gave pt his morning meds via g-tube.
--- NOTE | 2021-05-07 12:49 | PM.IMHP ---
H&P: HPI History of Present Illness Date/Time: 05/07/21 12:49This is a 75 year who has a history of having colon cancer with a colectomy and reversal of colostomy. The patient has not gotten chemotherapy for quite some time due to his weakness. The patient came in today complaining of generalized weakness for at least the last 3-4 weeks. The states that he typically is up ambulating with a walker. Today he fell due to his weakness any hurt his left great toe. He denies any loss of consciousness even though he hit his head. He is complaining some headache and some right shoulder pain. A chest x-ray was performed today which shows small lung volumes with mild streaky bibasilar atelectasis. Foot x-ray was read as prominent osteoarthritis at 1st metatarsophalangeal joint. Osteoarthritis at tibial tolerated point. Osteopenia. Plantar and posterior calcaneal and enthesopathy. Shoulder x-ray was read as no significant radiographic abnormality of the right shoulder diffuse idiopathic skeletal hyperostosis of the thoracic spine. The patient receives tube feedings and his gave him a tube feeding in the emergency room. The also stated that the patient can become very confused with sun downers during the night and typically stays with the patient. Cervical spine CT shows cervical spondylosis no fracture dislocation are locked facet. Head CT was read as following Prominent cerebral and cerebellar volume loss Cerebral atherosclerosis and chronic small vessel ischemic changes of the cerebral white matter No acute intracranial abnormality His potassium is 3.2 and was supplemented. H&H 10.7 and 34.0. Influenza and COVID are pending. The patient is being admitted to observation status on the date of service of 05/07/2021. Chief Complaint: Weakness Review of Systems Review of Systems: All systems reviewed & are unremarkable except as noted in HPI and below Constitutional: Constitutional: Reports as per HPI and Reports no additional constitutional complaints Eyes: Eyes: Reports as per HPI and Reports no additional eye complaints ENT: Reports system reviewed and no additional complaints, except as documented and Reports Normal hearing present Cardiovascular: Cardiovascular: Reports no additional cardiovascular complaints Respiratory: Respiratory: Reports no additional respiratory complaints and Reports no additional respiratory complaints Gastrointestinal: Gastrointestinal: Reports as per HPI and Reports no additional gastrointestinal complaints Musculoskeletal: Musculoskeletal: Reports no additional musculoskeletal complaints Integumentary/Breasts: Skin/Breast: Reports system reviewed and no additional complaints, except as docu and Reports as per HPI Neurologic: Reports system reviewed and no additional complaints, except as documented, Reports as per HPI and Reports Normal hearing present Psychiatric: Psychiatric: Reports no additional psychiatric complaints and Reports as per HPI Endocrine: Endocrine: Reports no additional endocrine complaints Hematologic/Lymphatic: Hematologic/Lymphatic: Reports no additional hematologic/lymphatic complaints Allergic/Immunologic: Allergic/Immunologic: Reports no additional allergic/immunologic complaints [facility] Past Medical History Medical History (Updated 05/07/21 @ 14:42 by Jessica Chavira NP) 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 Enlarged prostate with lower urinary tract symptoms (LUTS) Essential (primary) hypertension History of BPH History of colon cancer History of gastrostomy tube placement History of hypertension History of hypothyroidism Hypothyroid Mixed hyperlipidemia Obstructive sleep apnea (adult) (pediatric) Omental metastasis Other abnormal glucose Port-A-Cath in place 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
[2021-05-07 14:37] LABS: SARS-CoV-2 RNA PCR Negative
--- NOTE | 2021-05-07 14:51 | PCOTNOTE ---
Addendum entered by Beverly Sellers, OT 05/07/21 14:51: Pt. currently in ED Original Note: Pt. will be evaluated upon admit to hospital
--- NOTE | 2021-05-07 16:15 | ADMGEN ---
This patient, Eagle Mendez, was admitted to Medical Room 257-01. Patient/family oriented to hospital policies and general routines including ID bracelet, bed and alarms, visiting hours, pain management, procedures, bathroom and other care routines, personal items, smoking policy, room service/diet, and visiting hours. Information on how to activate the Rapid Response Team has been discussed. Patient/Family are encouraged to report perceived risks to care and to ask questions if they do not understand what they are told or what they should do.
[2021-05-07] MEDS: GABAPENTIN 400 MG CAPSULE XX (22:12)
[2021-05-07] MEDS: METOCLOPRAMIDE HCL 10 MG/10 ML SOLN UDC FEED TUBE (22:12)
[2021-05-07] MEDS: FAMOTIDINE 20 MG TABLET FEED TUBE (22:12)
[2021-05-08] VITALS (12 sets, daily range): BP systolic 105–127; BP diastolic 54–66; PULSE 69–79; RESP 14–20; TEMP 36.5–37.1; O2SAT 93–99; BMI 32.8
[2021-05-08] MEDS: LEVOTHYROXINE SODIUM 88 MCG TABLET FEED TUBE ×2 (00:51→23:26)
[2021-05-08] MEDS: ACETAMINOPHEN ELIXIR 325 MG/10.15 ML UDC 650 MG FEED TUBE (05:40)
[2021-05-08 05:41] LABS: Basophils Percent Auto 0.3 % (0.2-1.2); Eosinophils Absolute Auto 0.3 K/mm3 (0-0.3); Eosinophils Percent Auto 3.3 % (0-4.4); Hematocrit 31.2 % (42.0-52.0); Hemoglobin 9.6 g/dL (14.0-18.0); Immature Granulocyte Absolute 0.05 K/mm3 (0.00-0.031); Immature Granulocyte Percent A 0.6 % (0-0.5); Lymphocytes Absolute Auto 0.69 K/mm3 (0.9-3.2); Lymphocytes Percent Auto 8.7 % (18.3-44.2); Mean Corpuscular HGB Conc 30.8 g/dl (32-36); Mean Corpuscular Hemoglobin 29.9 pg (26-34); Mean Corpuscular Volume 97.2 fl (80-100); Mean Platelet Volume 9.7 fl (7.4-10.4); Monocytes Absolute Auto 0.9 K/mm3 (0.1-0.6); Monocytes Percent Auto 11.9 % (2.6-8.5); Neutrophils Absolute Auto 5.9 K/mm3 (1.3-6.7); Neutrophils Percent Auto 75.2 % (45.5-73.1); Platelet Count Result 150 k/mm3 (150-375); Red Blood Count 3.21 M/mm3 (4.6-6.20); White Blood Count 7.9 K/mm3 (4.5-10.0)
[2021-05-08 05:53] LABS: Alanine Aminotransferase 11 U/L (4-50); Albumin Level 2.9 g/dL (3.5-5.1); Alkaline Phosphatase 79 U/L (38-126); Anion Gap 2 mmol/L (8-16); Aspartate Amino Transferase 23 U/L (17-59); Bilirubin,Total 0.5 mg/dL (0.2-1.3); Blood Urea Nitrogen 32 mg/dL (9-20); CRP 7.9 mg/dL (<1.0); Calcium 8.4 mg/dL (8.4-10.2); Carbon Dioxide 27 mmol/L (22-30); Chloride 107 mmol/L (98-107); Estimated CRCL calculation 53 ml/min; Estimated Glomerular Filt Rate 59; Glucose 86 mg/dL (65-110); Lactate Dehydrogenase 269 U/L (313-618); Lipase 26 U/L (23-300); Magnesium 2.1 mg/dL (1.6-2.3); Phosphorus 3.4 mg/dL (2.5-4.5); Sodium 136 mmol/L (137-145)
[2021-05-08 05:55] LABS: Lactic Acid Reflex 0.6 mmol/L (0.7-2.1)
[2021-05-08] MEDS: methylPHENIDATE HCL (*CRX) 10 MG TABLET FEED TUBE ×2 (09:16→17:46)
[2021-05-08] MEDS: GABAPENTIN 400 MG CAPSULE XX ×2 (09:16→17:44)
[2021-05-08] MEDS: FINASTERIDE 5 MG TABLET FEED TUBE (09:16)
[2021-05-08] MEDS: FERROUS SULFATE LIQUID 220 MG/5 ML ELIXIR FEED TUBE (09:16)
[2021-05-08] MEDS: FAMOTIDINE 20 MG TABLET FEED TUBE ×2 (09:16→21:09)
[2021-05-08] MEDS: TAMSULOSIN HCL 0.4 MG CAPSULE PO (09:16)
[2021-05-08] MEDS: METOCLOPRAMIDE HCL 10 MG/10 ML SOLN UDC FEED TUBE ×2 (09:16→17:44)
--- NOTE | 2021-05-08 12:37 | PCSTNOTE ---
Please refer to the Bedside Swallow Evaluation in the EMR. Please note, silent aspiration cannot be ruled out at bedside.
--- NOTE | 2021-05-08 13:30 | PM.IMPN ---
Progress Note: A&P Assessment and Plan (1) Weakness: Code(s): R53.1 - Weakness Status: Acute Assessment and Plan: Patient is a 75-year-old man with a history of colon cancer metastases to liver, chemotherapy-induced neuropathy, hypertension, G-tube with tube feedings, hypertension, hypothyroidism, who presented to the emergency room with increased weakness over the last month and a fall prior to arrival. The patient's says he was hospitalized in December of 2020 at [place] where he had a feeding tube placed and over the amount of time he was at the hospital he became very weak. He returned home with home health and has slowly declined since then. Prior to arrival the patient's was helping him get to the bathroom and he felt very weak like he could not make it. The patient began to fall and the patient's was able to slowly lower him to the ground not injuring himself. He then fell forward and hit his head but denies any loss of consciousness. Patient was brought to the emergency room and vitals were stable 113/75, heart rate 77, afebrile, 98% on room air. Labs showed normal white blood cell count, normocytic anemia with hemoglobin of 10.7, hematocrit 34%. Hypokalemia at 3.2. Will renal function with a creatinine 1.0, BUN 30, normal LFTs. Normal TSH. Normal urinalysis. Negative COVID PCR. In the ER negative influenza a and B swab. CT head showed Prominent cerebral and cerebellar volume loss. Cerebral atherosclerosis and chronic small vessel ischemic changes of the cerebral white matter. No acute intracranial abnormality. CT Cervical Spine showed Cervical spondylosis; no fracture, dislocation or locked facet. Shoulder x-ray showed No significant radiographic abnormality of the right shoulder. Diffuse idiopathic skeletal hyperostosis of the thoracic spine. Foot XR showed Prominent osteoarthritis at first metatarsophalangeal joint. Osteoarthritis at tibiotalar joint. Osteopenia. Plantar and posterior calcaneal enthesopathy. CXR showed Small lung volumes with mild streaky bibasilar atelectasis. CT Abd pelvis showed Stable peritoneal carcinomatosis including involvement of the liver surface and surgical sites in anterior abdominal wall. Distended gallbladder filled with gallstones. Correlate with physical exam for any evidence of acute cholecystitis. The patient was admitted into the hospital for generalized weakness, physical and occupational therapy to be ordered. Dietitian consult on the patient and is switching his tube feedings to 380 cc QID with 200 cc water flush. This is more than what he was getting at home. Patient was seen by speech therapy who knows the patient well and had just had a modified barium swallow outpatient on Thursday which showed the patient should not have anything by mouth. We will continue with tube feedings and speech therapy will continue to monitor and work with him. He was seen by PT and OT therapy and did not want to get up and move around. I am concerned that the patient has become more weak and he may need to go to a retirement rehab facility at discharge. I had a very long discussion with the patient's at bedside who states he has gone downhill in he does not want to go to a retirement rehab facility. She also states they have about 7 stairs to get to the upstairs of their house and he has been getting weaker and weaker. Concerns with him being able to get into the house if discharged home. At this time there is no acute signs of any infection, negative for COVID or flu, or any other causes. I believe this is just deconditioning over the last few months from prior hospitalizations, and underlying cancer. Told the patient's we will see how he does with therapy tomorrow and make decisions at that point in time. Continue monitoring. Appreciate PT OT therapy input. (2) Insomnia: Code(s): G47.00 - Insomnia, unspecified
[2021-05-08] MEDS: QUEtiapine FUMARATE 12.5 MG TABLET PO (17:44)
[2021-05-09] VITALS: BP 115/54; PULSE 90; RESP 20; TEMP 36.8; O2SAT 99
[2021-05-09 05:54] LABS: Hematocrit 30.4 % (42.0-52.0); Hemoglobin 9.2 g/dL (14.0-18.0); Mean Corpuscular HGB Conc 30.3 g/dl (32-36); Mean Corpuscular Hemoglobin 29.5 pg (26-34); Mean Corpuscular Volume 97.4 fl (80-100); Mean Platelet Volume 9.9 fl (7.4-10.4); Platelet Count Result 151 k/mm3 (150-375); Red Blood Count 3.12 M/mm3 (4.6-6.20); Red Cell Distribution Width 16.2 % (11.5-14.5); White Blood Count 11.5 K/mm3 (4.5-10.0)
[2021-05-09 06:07] LABS: Anion Gap 1 mmol/L (8-16); Blood Urea Nitrogen 36 mg/dL (9-20); Calcium 8.3 mg/dL (8.4-10.2); Carbon Dioxide 26 mmol/L (22-30); Chloride 107 mmol/L (98-107); Estimated CRCL calculation 53 ml/min; Estimated Glomerular Filt Rate 59; Glucose 101 mg/dL (65-110); Potassium 4.3 mmol/L (3.4-5.0); Sodium 134 mmol/L (137-145)
[2021-05-09 08:00] VITALS: BP 119/59; PULSE 58; RESP 16; TEMP 36.6; O2SAT 95
[2021-05-09] MEDS: METOCLOPRAMIDE HCL 10 MG/10 ML SOLN UDC FEED TUBE ×2 (10:24→18:09)
[2021-05-09] MEDS: FERROUS SULFATE LIQUID 220 MG/5 ML ELIXIR FEED TUBE (10:24)
[2021-05-09] MEDS: FAMOTIDINE 20 MG TABLET FEED TUBE ×2 (10:25→20:33)
[2021-05-09] MEDS: TAMSULOSIN HCL 0.4 MG CAPSULE PO (10:25)
[2021-05-09] MEDS: FINASTERIDE 5 MG TABLET FEED TUBE (10:25)
[2021-05-09] MEDS: GABAPENTIN 400 MG CAPSULE XX ×2 (10:25→18:09)
[2021-05-09] MEDS: methylPHENIDATE HCL (*CRX) 10 MG TABLET FEED TUBE ×2 (10:25→18:09)
--- NOTE | 2021-05-09 11:49 | PCSTNOTE ---
Attempted ST session with pt but Eagle was currently with PT. Handouts provided for independent practice to target improved swallow function. Pt and his family voiced understanding of this. No charge for brief time with pt today.
--- NOTE | 2021-05-09 13:09 | PM.IMPN ---
Progress Note: A&P Assessment and Plan (1) Weakness: Code(s): R53.1 - Weakness Status: Acute Assessment and Plan: Patient is a 75-year-old man with a history of colon cancer metastases to liver, chemotherapy-induced neuropathy, hypertension, G-tube with tube feedings, hypertension, hypothyroidism, who presented to the emergency room with increased weakness over the last month and a fall prior to arrival. The patient's says he was hospitalized in December of 2020 at [place] where he had a feeding tube placed and over the amount of time he was at the hospital he became very weak. He returned home with home health and has slowly declined since then. Prior to arrival the patient's was helping him get to the bathroom and he felt very weak like he could not make it. The patient began to fall and the patient's was able to slowly lower him to the ground not injuring himself. He then fell forward and hit his head but denies any loss of consciousness. Patient was brought to the emergency room and vitals were stable 113/75, heart rate 77, afebrile, 98% on room air. Labs showed normal white blood cell count, normocytic anemia with hemoglobin of 10.7, hematocrit 34%. Hypokalemia at 3.2. Will renal function with a creatinine 1.0, BUN 30, normal LFTs. Normal TSH. Normal urinalysis. Negative COVID PCR. In the ER negative influenza a and B swab. CT head showed Prominent cerebral and cerebellar volume loss. Cerebral atherosclerosis and chronic small vessel ischemic changes of the cerebral white matter. No acute intracranial abnormality. CT Cervical Spine showed Cervical spondylosis; no fracture, dislocation or locked facet. Shoulder x-ray showed No significant radiographic abnormality of the right shoulder. Diffuse idiopathic skeletal hyperostosis of the thoracic spine. Foot XR showed Prominent osteoarthritis at first metatarsophalangeal joint. Osteoarthritis at tibiotalar joint. Osteopenia. Plantar and posterior calcaneal enthesopathy. CXR showed Small lung volumes with mild streaky bibasilar atelectasis. CT Abd pelvis showed Stable peritoneal carcinomatosis including involvement of the liver surface and surgical sites in anterior abdominal wall. Distended gallbladder filled with gallstones. Correlate with physical exam for any evidence of acute cholecystitis. The patient was admitted into the hospital for generalized weakness, physical and occupational therapy to be ordered. Dietitian consult on the patient and is switching his tube feedings to 380 cc QID with 200 cc water flush. This is more than what he was getting at home. Patient was seen by speech therapy who knows the patient well and had just had a modified barium swallow outpatient on Thursday which showed the patient should not have anything by mouth. We will continue with tube feedings and speech therapy will continue to monitor and work with him. He was seen by PT and OT therapy and he did okay, but concerned about walking up and down 7 steps at home due to weakness. Will look into Acute Rehab vs Swing bed as an option at discharge. I had a very long discussion with the patient's at bedside who states he has gone downhill in he does not want to go to a nursing home rehab facility. She also states they have about 7 stairs to get to the upstairs of their house and he has been getting weaker and weaker. Concerns with him being able to get into the house if discharged home. At this time there is no acute signs of any infection, negative for COVID or flu, or any other causes. I believe this is just deconditioning over the last few months from prior hospitalizations, and underlying cancer. Told the patient's we will see how he does with therapy tomorrow and make decisions at that point in time. Continue monitoring. Appreciate PT OT therapy input. (2) Insomnia: Code(s): G47.00 - Insomnia, unspecified Sta
[2021-05-09 14:20] VITALS: BP 123/64; PULSE 78; RESP 14; TEMP 36.6; O2SAT 100
[2021-05-09] MEDS: ACETAMINOPHEN ELIXIR 325 MG/10.15 ML UDC 650 MG FEED TUBE (16:40)
[2021-05-09] MEDS: LEVOTHYROXINE SODIUM 88 MCG TABLET FEED TUBE (20:33)
[2021-05-09] MEDS: MELATONIN 3 MG TABLET PO (20:33)
[2021-05-09 21:36] VITALS: O2SAT 98
[2021-05-09 22:00] VITALS: BP 111/58; PULSE 71; RESP 20; TEMP 36.3; O2SAT 98
[2021-05-10] MEDS: ACETAMINOPHEN ELIXIR 325 MG/10.15 ML UDC 650 MG FEED TUBE ×2 (02:33→17:16)
[2021-05-10 06:00] VITALS: BP 113/64; PULSE 58; RESP 18; TEMP 36.4; O2SAT 96
[2021-05-10 06:14] LABS: Anion Gap 3 mmol/L (8-16); Blood Urea Nitrogen 38 mg/dL (9-20); Calcium 8.4 mg/dL (8.4-10.2); Carbon Dioxide 25 mmol/L (22-30); Chloride 108 mmol/L (98-107); Estimated CRCL calculation 49 ml/min; Estimated Glomerular Filt Rate 54; Glucose 93 mg/dL (65-110); Potassium 4.2 mmol/L (3.4-5.0); Sodium 136 mmol/L (137-145)
[2021-05-10] MEDS: TAMSULOSIN HCL 0.4 MG CAPSULE PO (08:25)
[2021-05-10] MEDS: METOCLOPRAMIDE HCL 10 MG/10 ML SOLN UDC FEED TUBE ×2 (08:25→17:13)
[2021-05-10] MEDS: FERROUS SULFATE LIQUID 220 MG/5 ML ELIXIR FEED TUBE (08:26)
[2021-05-10] MEDS: FINASTERIDE 5 MG TABLET FEED TUBE (08:26)
[2021-05-10] MEDS: GABAPENTIN 400 MG CAPSULE XX ×2 (08:26→17:13)
[2021-05-10] MEDS: FAMOTIDINE 20 MG TABLET FEED TUBE (08:26)
[2021-05-10] MEDS: FUROSEMIDE 20 MG TABLET FEED TUBE (08:30)
[2021-05-10] MEDS: methylPHENIDATE HCL (*CRX) 10 MG TABLET FEED TUBE ×2 (08:31→17:16)
--- NOTE | 2021-05-10 10:33 | PCNFU ---
Nutrition Follow-Up Complete: Swallowing Difficulties as related to Dysphagia as evidenced by PEG. Goal: Meet estimated nutritional needs Patient will continue with current goal. Pt current nutrition is Osmolite 1.5-380 ml bolus QID. Last recorded weight is 97.9 kg. Bowel Motility: +BM reported 2/4 Labs Reviewed:GFR 54, Na 136 Meds Noted:Flomax,Reglan, Proscar, Ritalin, Pepcid, Lasix Skin: WNL Additional Notes: Patient remains on bolus tube feedings of Osmolite 1.5 bolus 380 ml QID. Tube feeding is providing 2280 kcals/95 gm protein/1158 ml water. Free water flush 200 ml after feedings. Spoke with patient and today, tube feedings are being tolerating. Weight has been stable. Agree with tube feedings orders. Monitoring: Will monitor every Thursday and Thursday.
--- NOTE | 2021-05-10 10:51 | WPDNEURCNPN ---
Assessment and Plan Additional Plan 1. Parkinson's disease with cooling of the chin and tongue along with the resting tremor and cogwheeling of the left side 2. Status post colectomy with colostomy for carcinoma with gastrostomy tube in position 3. Chemotherapy related neuropathy plan initiate the carbidopa levodopa and have the physical therapy and occupational therapy evaluation Consult date: 05/10/21 HPI: Eagle Mendez is a 75 year old male Has been admitted to the hospital for the complaints of generalized weakness of several weeks duration on the day of admission he fell due to his weakness and hurt his left great toe he was ambulating at that particular time with a walker he did not become unconscious he did sustain closed-head trauma to his head and complained of some headache and right shoulder discomfort his foot x-ray was documented with prominent osteoarthritis particularly at 1st metatarsophalangeal joint and tibial point along with osteopenia plantar and posterior calcaneal enthesopathy shoulder x-rays were negative but he was not noted to have the EEG a path achy skeletal hyperostosis of thoracic spine patient gets the tube feeding which was given to him in the emergency room according to his at time he becomes very confused particularly with sundowning his cervical spine CT scan was documented cervical spondylosis and his serum potassium was 3.2, his outpatient medication particularly included gabapentin that is 400 mg twice a day amlodipine 10 mg per the feeding tube levothyroxine 88 micro g per the feeding tube lisinopril 10 mg per feeding tube and metoclopramide 10 mg per feeding tube b.i.d. in addition to tamsulosin and trazodone Review of Systems Review of Systems: All systems reviewed & are unremarkable except as noted in HPI and below PMFSH Past Medical History Medical History 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 Enlarged prostate with lower urinary tract symptoms (LUTS) Essential (primary) hypertension History of BPH History of colon cancer History of gastrostomy tube placement History of hypertension History of hypothyroidism Hypothyroid Mixed hyperlipidemia Obstructive sleep apnea (adult) (pediatric) Omental metastasis Other abnormal glucose Port-A-Cath in place 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 He does not use any alcohol drugs or marijuana. Code status full code Smoking status: Never smoker Alcohol intake: never Substance use: never Gender identity (if verbalized by the patient): Male Spiritual care concerns: No Meds Home Medications and Allergies Home Medications Medication Instructions Recorded Confirmed Type acetaminophen [Tylenol Arthritis 650 mg PO DAILY PRN 09/20/19 05/07/21 History Pain] gabapentin 400 mg FEEDING TUBE BID 09/20/19 05/07/21 History loperamide [Imodium A-D] 2 mg FEEDING TUBE Q4H PRN 09/20/19 05/07/21 History amlodipine 10 mg FEEDING TUBE DAILY 05/07/21 05/07/21 History diphenoxylate-atropine [Lomotil] 1 tablet FEEDING TUBE TID PRN 05/07/21 05/07/21
[2021-05-10] MEDS: CARBIDOPA/LEVODOPA 25/100 MG TABLET 1 TABLET FEED TUBE ×2 (13:06→17:13)
--- NOTE | 2021-05-10 13:19 | PCSTNOTE ---
On 05/10/21, the student, eDbo Reaves, provided care and completed [employer] documentation on this patient. I have reviewed the student's documentation and agree with the findings.
--- NOTE | 2021-05-10 14:11 | PM.DS ---
DS: Admitting Diagnosis Discharge Date 05/10/21 Admitting Diagnosis Weakness DS: Discharge Diagnosis Discharge Diagnosis (1) Weakness: Code(s): R53.1 - Weakness Status: Acute Assessment and Plan: Patient is a 75-year-old man with a history of colon cancer metastases to liver, chemotherapy-induced neuropathy, hypertension, G-tube with tube feedings, hypertension, hypothyroidism, who presented to the emergency room with increased weakness over the last month and a fall prior to arrival. The patient's says he was hospitalized in December of 2020 at [place] where he had a feeding tube placed and over the amount of time he was at the hospital he became very weak. He returned home with home health and has slowly declined since then. Prior to arrival the patient's was helping him get to the bathroom and he felt very weak like he could not make it. The patient began to fall and the patient's was able to slowly lower him to the ground not injuring himself. He then fell forward and hit his head but denies any loss of consciousness. Patient was brought to the emergency room and vitals were stable 113/75, heart rate 77, afebrile, 98% on room air. Labs showed normal white blood cell count, normocytic anemia with hemoglobin of 10.7, hematocrit 34%. Hypokalemia at 3.2. Will renal function with a creatinine 1.0, BUN 30, normal LFTs. Normal TSH. Normal urinalysis. Negative COVID PCR. In the ER negative influenza a and B swab. CT head showed Prominent cerebral and cerebellar volume loss. Cerebral atherosclerosis and chronic small vessel ischemic changes of the cerebral white matter. No acute intracranial abnormality. CT Cervical Spine showed Cervical spondylosis; no fracture, dislocation or locked facet. Shoulder x-ray showed No significant radiographic abnormality of the right shoulder. Diffuse idiopathic skeletal hyperostosis of the thoracic spine. Foot XR showed Prominent osteoarthritis at first metatarsophalangeal joint. Osteoarthritis at tibiotalar joint. Osteopenia. Plantar and posterior calcaneal enthesopathy. CXR showed Small lung volumes with mild streaky bibasilar atelectasis. CT Abd pelvis showed Stable peritoneal carcinomatosis including involvement of the liver surface and surgical sites in anterior abdominal wall. Distended gallbladder filled with gallstones. Correlate with physical exam for any evidence of acute cholecystitis. The patient was admitted into the hospital for generalized weakness, physical and occupational therapy to be ordered. Dietitian consult on the patient and is switching his tube feedings to 380 cc QID with 200 cc water flush. This is more than what he was getting at home. He is tolerating it well. Patient was seen by speech therapy who knows the patient well and had just had a modified barium swallow outpatient on Thursday which showed the patient should not have anything by mouth. We will continue with tube feedings and speech therapy will continue to monitor and work with him. [facility]/OT/Speech therapy. patient is stable for discharge at this time. Follow up instructions given. Return to ER warnings given. and patient understand and agree with plan for discharge to SNF. All questions answered. (2) Insomnia: Code(s): G47.00 - Insomnia, unspecified Status: Acute Assessment and Plan: Patient's states the patient has been having some insomnia at night and she has not been getting much sleep. She also states he has been confused and anxious at night. Primary care had prescribed trazodone but this caused too much sedation. I consulted the neurologist Dr. Rebolledo to see the patient for further recommendations. Neurology recommended Seroquel 12.5 mg last night at 5:00 p.m. and the was concerned how sedated the patient was and wanted to try something else. The
[2021-05-10 14:18] LABS: EDCOVIDSCREEN Negative (Negative)
[2021-05-10 14:20] VITALS: BP 138/72; PULSE 88; RESP 18; TEMP 36.9; O2SAT 100
== END 2021-05-10 18:05 ==
LOC: ANHED 08:48 → ANH3MEDSUR 13:47 → ANH2MED 16:06
PROVIDERS: Nurse Practitioner; Admitting Provider Family Medicine; Emergency Provider Emergency Medicine; Visit Provider Physician Assistant
DX: R53.1 Weakness (principal); E87.6 Hypokalemia; G20 Parkinson's disease; S99.922A Unspecified injury of left foot, initial encounter; W19.XXXA Unspecified fall, initial encounter; M79.675 Pain in left toe(s); M25.511 Pain in right shoulder; R51.9 Headache, unspecified; G62.0 Drug-induced polyneuropathy; T45.1X5A Adverse effect of antineoplastic and immunosuppressive drugs, initial encounter; C78.7 Secondary malignant neoplasm of liver and intrahepatic bile duct; C78.6 Secondary malignant neoplasm of retroperitoneum and peritoneum; G47.00 Insomnia, unspecified; I10 Essential (primary) hypertension; N40.1 Benign prostatic hyperplasia with lower urinary tract symptoms; E03.9 Hypothyroidism, unspecified; E78.2 Mixed hyperlipidemia; G47.33 Obstructive sleep apnea (adult) (pediatric); Z85.038 Personal history of other malignant neoplasm of large intestine; Z90.49 Acquired absence of other specified parts of digestive tract; Z20.822 Contact with and (suspected) exposure to COVID-19; Z93.1 Gastrostomy status; Z23 Encounter for immunization
CPT/HCPCS: 36415; 51701; 70450; 71046; 72125; 73030; 73630; 74177; 80048; 80053; 81001; 82728; 83605; 83615; 83690; 83735; 84100; 84443; 85025; 85027; 86140; 87426; 87804; 90715; 92526; 92610; 93005; 96360; 96361; 97110; 97116; 97161; 97165; 97535; 99285; A9270; C9803; G0378; J7030; Q9967; U0003; U0005

== ENCOUNTER 2021-05-31 10:39 | Inpatient (IN) | payer MEDICARE, SELFPAY ==
[2021-05-31] VITALS (30 sets, daily range): BP systolic 94–119; BP diastolic 55–74; PULSE 54–80; RESP 9–19; TEMP 36.1–36.8; O2SAT 96–100; BMI 33.9
--- NOTE | ~2021-05-31 | XR_ITS ---
MODIFIED ESOPHAGRAM HISTORY: Dysphagia. TECHNIQUE: Modified barium esophagram was performed by speech pathologist under radiologist fluorosco pic guidance. This was recorded on tape. The exam was reviewed on 06/03/2021 10:59 PRIMARY CARE SALES REPRESENTATIVE. The DAP for this procedure was 2.8 Gycm2. Fluoroscopy time is 3.3 minutes. FINDINGS: Lateral projection of the cervical spine demonstrates normal alignment. There is reduced laryngeal elevation with decreased tongue base retraction and vallecular residue. There is laryngeal penetration, although no definite aspiration identified.. IMPRESSION: 1: Mild laryngeal penetration without aspiration. 2: Please refer to speech pathologist report for additional detail. Reviewed, dictated and finalized at location A. ARY CARE SALES REPRESENTATIVE
--- NOTE | ~2021-05-31 | XR_ITS ---
EXAMINATION: XR hip LT 2V w AP pelvis DATE: 05/31/2021 11:48 INDICATION: Left hip pain TECHNIQUE: Anteroposterior view of the pelvis and anteroposterior and frog-leg lateral views of the l eft hip were obtained. COMPARISON: CT abdomen and pelvis dated 05/07/2021 FINDINGS: Alignment is normal. No fracture or suspected avascular necrosis. Mild bilateral hip osteoarthritis w ith small bilateral acetabular marginal osteophytes and small bilateral os acetabula. Mild bilateral sacroiliac osteoarthritis. Severe lower lumbar spondylosis. IMPRESSION: 1. Mild bilateral hip and sacroiliac osteoarthritis. No acute osseous abnormality. 2. Severe lower lumbar spondylosis. Reviewed, dictated and finalized at location A. GER STERILE IMPRESSION: 1. Mild bilateral hip and sacroiliac osteoarthritis. No acute osseous abnormali ty. 2. Severe lower lumbar spondylosis.
--- NOTE | ~2021-05-31 | XR_ITS ---
EXAMINATION: XR chest 1V portable DATE: 05/31/2021 11:47 INDICATION: Weakness TECHNIQUE: frontal view of the chest was obtained. COMPARISON: Chest radiograph dated 05/07/2021 FINDINGS: Right internal jugular central venous port catheter with distal tip at the cephalad superior vena cav a. Mild bibasilar opacities with some infrahilar bronchial wall thickening. No pleural effusion or pn eumothorax. The cardiomediastinal silhouette is normal. There are bridging osteophytes at multiple le vels in the spine, consistent with diffuse idiopathic skeletal hyperostosis (DISH). IMPRESSION: 1. Opacities and bronchial wall thickening the bilateral lower lung zones which could represent pneum onia or mild pulmonary edema. Reviewed, dictated and finalized at location A. PARTUM NURSE IMPRESSION: 1. Opacities and bronchial wall thickening the bilateral lower lung zones which could represent pneumonia or mild pulmonary edema.
--- NOTE | ~2021-05-31 | CT_ITS ---
EXAMINATION: CT brain wo con DATE: 05/31/2021 12:21 INDICATION: Decreased responsiveness. TECHNIQUE: Computed tomography (CT) of the head was performed without intravenous contrast. The mA wa s adjusted according to patient size. Iterative reconstruction technique was employed. The dose-lengt h product was 681.00 mGy-cm. COMPARISON: Head CT 05/07/2021 FINDINGS: There is no intracranial hemorrhage, acute infarction, or abnormal intracranial mass lesion . The ventricles are normal in size. There is mucosal thickening in the paranasal sinuses. The orbits are normal. The mastoid air cells are normal. IMPRESSION: 1. Normal brain. Reviewed, dictated and finalized at location A. MASTER IMPRESSION: 1. Normal brain.
--- NOTE | ~2021-05-31 | XR_ITS ---
EXAMINATION: XR chest 1V portable EXAM DATE: 06/02/2021 12:29 INDICATION: PNA follow up. TECHNIQUE: Portable AP frontal chest x-ray was obtained. Comparison is made to prior examination from 05/31/2021. FINDINGS: There is a right-sided portacatheter. Small amount of bilateral lower lobe edema or pneumon ia. There is no pneumothorax suspected. Possible small left pleural effusion. The cardiomediastinal s ilhouette is prominent but magnified on this AP technique. IMPRESSION: Small amount of basilar edema or pneumonia unchanged. Reviewed, dictated and finalized at location A. KING GUIDE
--- NOTE | 2021-05-31 11:03 | ECG_ITS ---
Measurements Intervals [place] Rate: 80 P: 62 [place]: 235 QRS: -26 QRSD: 88 T: -13 QT: 334 QTc: 387 Interpretive Statements SINUS RHYTHM WITH FIRST DEGREE AV BLOCK VOLTAGE CRITERIA FOR LVH INFERIOR INFARCT, AGE INDETERMINATE BASELINE ARTIFACT- I, II, III, AVR, AVL, AVF, V1-V6 ABNORMAL ECG Electronically Signed On 05-31-2021 14:44:18 CHIEF EMBALMER by Reji Esteban D.O.
[2021-05-31 11:44] LABS: Basophils Absolute Auto 0.1 K/mm3 (0.0-0.1); Basophils Percent Auto 0.7 % (0.2-1.2); Eosinophils Absolute Auto 0.3 K/mm3 (0-0.3); Eosinophils Percent Auto 4.1 % (0-4.4); Hematocrit 34.8 % (42.0-52.0); Hemoglobin 10.7 g/dL (14.0-18.0); Immature Granulocyte Absolute 0.07 K/mm3 (0.00-0.031); Immature Granulocyte Percent A 0.8 % (0-0.5); Lymphocytes Absolute Auto 0.67 K/mm3 (0.9-3.2); Mean Corpuscular HGB Conc 30.7 g/dl (32-36); Mean Corpuscular Hemoglobin 30.3 pg (26-34); Mean Corpuscular Volume 98.6 fl (80-100); Mean Platelet Volume 9.7 fl (7.4-10.4); Monocytes Absolute Auto 1.1 K/mm3 (0.1-0.6); Monocytes Percent Auto 12.6 % (2.6-8.5); Neutrophils Absolute Auto 6.2 K/mm3 (1.3-6.7); Neutrophils Percent Auto 73.8 % (45.5-73.1); Platelet Count Result 180 k/mm3 (150-375); Red Blood Count 3.53 M/mm3 (4.6-6.20); White Blood Count 8.4 K/mm3 (4.5-10.0)
--- NOTE | 2021-05-31 11:50 | ED.WEAKNESS ---
HPI - Weakness General Chief complaint: Weakness Stated complaint: increased weakness Time Seen by Provider: 05/31/21 10:53 Source: patient, family, RN notes reviewed and old records reviewed Mode of arrival: EMS Limitations: clinical condition History of Present Illness HPI Narrative: This is a 75 year old male with history of Parkinson's disease who presents for evaluation weakness. His is at bedside to provide history. She states patient was admitted to [facility] 3 months ago after suffering a fall. He was admitted to [facility] after that hospitalization and he returnes home on Thursday. His states he was able to walk up stairs on Thursday when he got home. Afterwards, patient has been lethargic . She states he is sleeping most of the time and she is having javed time getting him up . HE was able to walk to bathroom today. She denies that he has fallen again. Patient is complaining of left hip pain. She denies fever, nausea, vomiting chest pain or shortness of breath. Related Data Home Medications Medication Instructions Recorded Confirmed gabapentin 400 mg FEEDING TUBE BID 09/20/19 05/31/21 loperamide [Imodium A-D] 2 mg FEEDING TUBE Q4H PRN 09/20/19 05/31/21 diphenoxylate-atropine [Lomotil] 1 tablet FEEDING TUBE TID PRN 05/07/21 05/31/21 finasteride 5 mg FEEDING TUBE DAILY 05/07/21 05/31/21 furosemide 30 mg FEEDING TUBE DAILY 05/07/21 05/31/21 metoclopramide HCl 10 mg FEEDING TUBE BID 05/07/21 05/31/21 tamsulosin 0.4 mg PO DAILY 05/07/21 05/31/21 amlodipine 10 mg FEEDING TUBE DAILY 05/31/21 05/31/21 carbidopa-levodopa [Sinemet] 1 tablet FEEDING TUBE QID 05/31/21 05/31/21 cholecalciferol (vitamin D3) 125 mcg FEEDING TUBE DAILY 05/31/21 05/31/21 [Vitamin D3] ferrous sulfate 330 mg FEEDING TUBE HS 05/31/21 05/31/21 Allergies Allergy/AdvReac Type Severity Reaction Status Date / Time atropine Allergy Unknown Unknown Verified 05/07/21 18:52 codeine Allergy Unknown Unknown Verified 05/07/21 18:52 lorazepam AdvReac Severe GETS Verified 05/07/21 18:52 RESTLESS AND COMBATIVE propoxyphene AdvReac Severe Nausea and Verified 05/07/21 18:52 Vomiting quetiapine [From Seroquel] AdvReac Severe other Verified 05/31/21 15:30 trazodone AdvReac Severe Other Verified 05/31/21 15:30 alprazolam AdvReac Unknown anxiety Verified 05/07/21 18:52 Review of Systems Review of Systems: ROS unobtainable: Yes unobtainable due to medical condition PMFSH Past Medical History Medical History 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 Enlarged prostate with lower urinary tract symptoms (LUTS) Essential (primary) hypertension History of BPH History of colon cancer History of gastrostomy tube placement History of hypertension History of hypothyroidism Hypothyroid Mixed hyperlipidemia Obstructive sleep apnea (adult) (pediatric) Omental metastasis Other abnormal glucose Port-A-Cath in place 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 He does not use any alcohol drugs or marijuana. Co
[2021-05-31 11:51] LABS: Base Excess ABG 1.8 mEq/l (+/-2.0); Carboxyhemoglobin 0.6 % THb (0-2.0); Fractional Inspired Oxygen 21 %; HCO3 ABG 27.1 mEq/l (22.0-26.0); Methemoglobin ABG 0.1 %THb (0-1.5); Oxygen Content ABG 15.3 %vol (16.0-22.0); Oxygen Saturation ABG 95.2 % (95.0-100.0); Oxyhemoglobin 94.4 % THb (90.0-100.0); PCO2 ABG 45.6 mmHg (35.0-45.0); PO2 ABG 77.1 mmHg (80.0-100.0); PO2 FiO2 Ratio Arterial Blood 3.67 %; Reduced Hemoglobin 4.9 %THb (0-5.0); Total Hemoglobin 11.5 g/dL (12.0-18.0); pH ABG 7.392 (7.350-7.450)
[2021-05-31 11:52] LABS: Device ROOM AIR; Modified Allen's Test Pass; Site Drawn RIGHT RADIAL
[2021-05-31 12:11] LABS: Alanine Aminotransferase 8 U/L (4-50); Albumin Level 3.4 g/dL (3.5-5.1); Alkaline Phosphatase 86 U/L (38-126); Anion Gap 3 mmol/L (8-16); Aspartate Amino Transferase 23 U/L (17-59); Bilirubin,Total 0.4 mg/dL (0.2-1.3); Blood Urea Nitrogen 34 mg/dL (9-20); Calcium 8.7 mg/dL (8.4-10.2); Carbon Dioxide 32 mmol/L (22-30); Chloride 102 mmol/L (98-107); Estimated CRCL calculation 55 ml/min; Estimated Glomerular Filt Rate > 60; Glucose 111 mg/dL (65-110); Sodium 137 mmol/L (137-145)
[2021-05-31 12:20] LABS: NT Pro B Type Natriuretic Pept 460 pg/mL (5-100)
[2021-05-31 12:33] LABS: Add Urine Microscopic? YES; Appearance Urine Clear (Clear); Bacteria Urine 1+ /hpf; Bilirubin Urine Negative (Negative); Blood Urine Negative (Negative); Color Urine Yellow (Yellow); Glucose Urine UA Negative (Negative); Ketones Urine Negative (Negative); Leukocyte Esterase Ur 2+ LEU/UL (Negative); Mucus Urine Rare /lpf; Nitrate Urine Negative (Negative); Protein Urine Negative (Negative); Specific Grav Ur 1.012 (1.001-1.035); Squamous Epithelial Cell Urine Rare /hpf (Few); Urobilinogen Urine Negative mg/dL (<2.0); WBC Urine 31-50 /hpf
[2021-05-31] MEDS: SODIUM CHLORIDE 0.9% IV 1,000 ML 999 ML IV CONT (13:08)
[2021-05-31 13:47] LABS: SARS-CoV-2 RNA PCR Negative
--- NOTE | 2021-05-31 14:30 | PM.IMHP ---
H&P: HPI History of Present Illness Date/Time: 05/31/21 14:30 Chief Complaint: Weakness and fall Narrative: patient is a 75-year-old male with a past medical history of colon cancer, hypertension, BPH, hyperlipidemia, REY , Parkinson's who presented the ED with his for falls. patient was recently admitted to the hospital for generalized weakness. Patient was discharged to rehab in finally returned home on Thursday. Patient was able to walk up stairs when he got home however he has been very lethargic and been sleeping most of the time. Upon arrival to the patient's room he was relatively hard to awake. He did open his eyes and stated that he felt pretty good. He seems to be weak, and fluid volume overloaded. Lungs are diminished. He is in a sinus fatemeh. Patient's to come into the room and explained to me that the patient was admitted here in May and was sent to rehab at [place] May 10. Patient was doing well however Thursday they wanted to move the patient into a COVID room and the was not okay with that due to his underlying illness. Upon that moment patient's decided that it would be easier to take the patient home with home health. He was doing really well upon arrival and was able to walk 13 stairs into the house. Patient got very weak and was unable to be aroused started was very tired. Home health nurse stated that she thought maybe he had a UTI and was going to get a UA for culture however with her whether she was unable to do so. His did state that he has not had any real complaints other than he had a swollen right gum that he was complaining of pain. Patient also started complaining of pain in his hip when EMS was there to pick him up. Patient's last dose of chemo according to the is February 16. She also stated that the patient was having a lot of redness to his inguinal folds and under his pain she has been trying to put fungal powder on however he sleeps in a recliner is unable to get the powder to the areas of need. She does state the patient was like this at [place] however he was little bit more apt to do things. Patient was also on Ritalin which she stated she felt did help increase his energy however they did take him off of that. She also stated the patient usually does not have the bilateral lower extremity swelling that he has currently. did deny that the patient had a complaints of chest pain, shortness of breath, nausea, vomiting, diarrhea, constipation, weakness, fatigue, fevers, sweats, chills, lightheadedness, dizziness. patient's did state that he has had peripheral neuropathy in his arms and legs since starting the chemotherapy. Patient is being admitted to the hospitalist under observation. Review of Systems Review of Systems: All systems reviewed & are unremarkable except as noted in HPI and below PMFSH Past Medical History Medical History 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 Enlarged prostate with lower urinary tract symptoms (LUTS) Essential (primary) hypertension History of BPH History of colon cancer History of gastrostomy tube placement History of hypertension History of hypothyroidism Hypothyroid Mixed hyperlipidemia Obstructive sleep apnea (adult) (pediatric) Omental metastasis Other abnormal glucose Port-A-Cath in place 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
[2021-05-31 15:00] LABS: NT Pro B Type Natriuretic Pept 472 pg/mL (5-100); Troponin I < 0.012 ng/mL (0.000-0.034)
--- NOTE | 2021-05-31 15:07 | PCDIET ---
Physician consult for tube feedings. Patient has PEG. Home tube feedings are bolus of Osmolite 1.5 380 ml QID 0900,1300,1700, 2100 hours. Free water flush 200 ml after feedings. Current tube feeding will provide 2280 kcals, 95 gms protein, 1158 ml water. Weight is stable since last admit. Agree with diet orders. Thank you for consult.
[2021-05-31] MEDS: SODIUM CHLORIDE 0.9% IV 1,000 ML 125 ML IV CONT (15:37)
[2021-05-31 17:26] LABS: Glucose Point of Care 73 mg/dl (65-105)
--- NOTE | 2021-05-31 17:32 | ADMGEN ---
This patient, Eagle Mendez, was admitted to Medical Room 345-01. Patient/family oriented to hospital policies and general routines including ID bracelet, bed and alarms, visiting hours, pain management, procedures, bathroom and other care routines, personal items, smoking policy, room service/diet, and visiting hours. Information on how to activate the Rapid Response Team has been discussed. Patient/Family are encouraged to report perceived risks to care and to ask questions if they do not understand what they are told or what they should do.
[2021-05-31] MEDS: CARBIDOPA/LEVODOPA 25/100 MG TABLET 1 TABLET FEED TUBE ×2 (18:10→21:14)
[2021-05-31] MEDS: METOCLOPRAMIDE HCL 10 MG/10 ML SOLN UDC FEED TUBE (18:12)
[2021-05-31] MEDS: GABAPENTIN 400 MG CAPSULE XX (18:12)
[2021-05-31] MEDS: FERROUS SULFATE LIQUID 325 MG/7.4 ML ELIXIR FEED TUBE (21:14)
[2021-05-31] MEDS: FAMOTIDINE 20 MG TABLET FEED TUBE (21:15)
[2021-05-31 23:48] LABS: Glucose Point of Care 151 mg/dl (65-105)
[2021-06-01] VITALS (10 sets, daily range): BP systolic 100–119; BP diastolic 50–59; PULSE 64–96; RESP 16–18; TEMP 36.6–36.9; O2SAT 91–96
--- NOTE | 2021-06-01 | ECHO_ITS ---
Patient Info Name: Eagle Mendez Age: 75 years : 1945 Gender: Male Ht: 67 in Wt: 216 lbs BSA: 2.19 m2 HR: 78 bpm BP: 100 / 50 mmHg Heart Rhythm: Sinus Rhythm Technical Quality: Good Exam Date: 06/01/2021 10:33 AM Exam Location: [facility] Pulmonary Exam Room: 345 Patient Status: Inpatient Admit Date: 05/31/2021 Staff Ordering Physician: Israel Blackburn Automatic Lehr Operator: Josiane Blanco RDCS Attending Provider: Karson Wright MD Referring Physician: Alexey MTZ; Exam Type: CA echo doppler color flow Study Info Indications - FLUID STATUS Complete two-dimensional, color flow and Doppler transthoracic echocardiogram is performed. Summary 1. Complete two-dimensional, color flow and Doppler transthoracic echocardiogram is performed. 2. Normal left ventricular size and vigorous systolic function. 3. Grade 1 diastolic noncompliance. 4. No valvular abnormality. Left Ventricle Left ventricular chamber dimension is normal. Left ventricular systolic function is normal, estimated at 65-70%. The left ventricular diastolic function is grade I diastolic dysfunction. Right Ventricle Right ventricular chamber dimension is normal. Left Atria Left atrial chamber dimension is normal. Right Atria Right atrial chamber dimension is normal. Aortic Valve The aortic valve is normal. Pulmonic Valve The pulmonic valve is normal. Mitral Valve The mitral valve has normal leaflets. Tricuspid Valve The tricuspid valve leaflets are normal. Pericardium/Pleural The pericardium appears normal. Aorta The aortic root size at the sinus of Valsalva is normal. Left Ventricular Outflow Tract Name Value Normal LVOT 2D LVOT Diameter 2.1 cm LVOT Doppler LVOT Peak Gradient 6 mmHg LVOT Mean Gradient 4 mmHg LVOT VTI 21 cm LVOT VTI/AV VTI Ratio 0.7 LVOT Stroke Volume 76 ml LVOT CO 19.9 l/min LVOT CI 9.1 l/min/m2 Pulmonic Valve Name Value Normal PV Doppler PV Peak Gradient 5 mmHg Mitral Valve Name Value Normal MV Doppler MV Decel [place] 273 cm/s2 MV PHT 68 ms MV Area (PHT) 3.3 cm2 4.0-5.0 MV Diastolic Function MV E Peak Velocity 64 cm/s MV A Peak Velocity
[2021-06-01] MEDS: SODIUM CHLORIDE 0.9% IV 1,000 ML 125 ML IV CONT ×2 (00:39→09:11)
[2021-06-01 05:28] LABS: Basophils Absolute Auto 0.1 K/mm3 (0.0-0.1); Basophils Percent Auto 0.7 % (0.2-1.2); Eosinophils Absolute Auto 0.4 K/mm3 (0-0.3); Eosinophils Percent Auto 4.8 % (0-4.4); Hematocrit 32.3 % (42.0-52.0); Hemoglobin 9.7 g/dL (14.0-18.0); Immature Granulocyte Absolute 0.05 K/mm3 (0.00-0.031); Immature Granulocyte Percent A 0.7 % (0-0.5); Lymphocytes Percent Auto 11.7 % (18.3-44.2); Mean Corpuscular Hemoglobin 30.1 pg (26-34); Mean Corpuscular Volume 100.3 fl (80-100); Mean Platelet Volume 9.6 fl (7.4-10.4); Monocytes Percent Auto 13.2 % (2.6-8.5); Neutrophils Absolute Auto 5.3 K/mm3 (1.3-6.7); Neutrophils Percent Auto 68.9 % (45.5-73.1); Platelet Count Result 160 k/mm3 (150-375); Red Blood Count 3.22 M/mm3 (4.6-6.20); Red Cell Distribution Width 16.1 % (11.5-14.5); White Blood Count 7.7 K/mm3 (4.5-10.0)
[2021-06-01] MEDS: LEVOTHYROXINE SODIUM 88 MCG TABLET FEED TUBE (05:31)
[2021-06-01 05:42] LABS: Alanine Aminotransferase 9 U/L (4-50); Albumin Level 2.8 g/dL (3.5-5.1); Alkaline Phosphatase 79 U/L (38-126); Anion Gap 2 mmol/L (8-16); Aspartate Amino Transferase 33 U/L (17-59); Bilirubin,Total 0.2 mg/dL (0.2-1.3); Blood Urea Nitrogen 33 mg/dL (9-20); Carbon Dioxide 30 mmol/L (22-30); Chloride 106 mmol/L (98-107); Estimated CRCL calculation 62 ml/min; Estimated Glomerular Filt Rate > 60; Glucose 74 mg/dL (65-110); Potassium 4.1 mmol/L (3.4-5.0); Sodium 138 mmol/L (137-145)
[2021-06-01 06:44] LABS: Glucose Point of Care 87 mg/dl (65-105)
[2021-06-01] MEDS: CARBIDOPA/LEVODOPA 25/100 MG TABLET 1 TABLET FEED TUBE ×4 (09:10→20:47)
[2021-06-01] MEDS: CHOLECALCIFEROL 1,000 UNITS TABLET 5000 UNITS FEED TUBE (09:10)
[2021-06-01] MEDS: FINASTERIDE 5 MG TABLET FEED TUBE (09:10)
[2021-06-01] MEDS: FAMOTIDINE 20 MG TABLET FEED TUBE ×2 (09:10→20:47)
[2021-06-01] MEDS: FUROSEMIDE INJ 40 MG/4 ML VIAL IV PUSH ×2 (09:10→17:12)
[2021-06-01] MEDS: amLODIPine BESYLATE 5 MG TABLET 10 MG FEED TUBE (09:10)
[2021-06-01] MEDS: METOCLOPRAMIDE HCL 10 MG/10 ML SOLN UDC FEED TUBE (09:10)
[2021-06-01] MEDS: GABAPENTIN 400 MG CAPSULE XX ×2 (09:25→17:12)
[2021-06-01] MEDS: ACETAMINOPHEN 325 MG TABLET 650 MG FEED TUBE (09:26)
--- NOTE | 2021-06-01 11:00 | PM.IMPN ---
Progress Note: A&P Assessment and Plan (1) Weakness: Code(s): R53.1 - Weakness Status: Acute Assessment and Plan: Notable weakness at home Just Discharged from rehab No report of falling Patient was able to walk 13 stairs fall precautions PT/OT (2) Parkinsons: Code(s): G20 - Parkinson's disease Status: Acute Assessment and Plan: Continue home Sinemet PT/OT (3) Colon cancer metastasized to multiple sites: Code(s): C18.9 - Malignant neoplasm of colon, unspecified Status: Acute Assessment and Plan: Last chemo was last FEB reports recent colonoscopy with no findings Supportive care Continue home Reglan (4) CHF (congestive heart failure): Code(s): I50.9 - Heart failure, unspecified Status: Acute Assessment and Plan: Unable to determine acute/chronic, diastolic/systolic Not convinced this is an exacerbation 99% on room air Chest xray did mention pulmonary edema 3-4+ bilateral lower extremity BNP slightly elevated at 460 Look to take 30mg lasix per feeding tube Will start 40mg IV BID sodium does indicate probable overload Obtain echo Daily weights Trend urine output (5) Abnormal finding on urinalysis: Code(s): R82.90 - Unspecified abnormal findings in urine Status: Acute Assessment and Plan: UA showed clear urine, 2+ leukocyte esterase, WBC 31-50, 1+ Bacteria Continue ceftriaxone Urine culture pending, continue to follow Unable to determine if this is a UTI due to pending culture WBC 7.7 Trend output Tailor antibiotics to culture results (6) Pneumonia: Code(s): J18.9 - Pneumonia, unspecified organism Status: Acute Assessment and Plan: Chest xray shows PNA vs Pulm edema Antibiotics on board Repeat chest xray in two days Not sure that sputum culture came be obtained WBC 7.7 tending down Trend labs (7) Acute metabolic encephalopathy: Code(s): G93.41 - Metabolic encephalopathy Status: Acute Assessment and Plan: Seems to be better today Wonder if some of this is from the Reglan, Hold for now Started scopolamine for now Clear tone and voice Head CT normal Hold all medications that could cause somnolent behavior Trend behavior (8) Dysphasia: Code(s): R47.02 - Dysphasia Status: Acute Assessment and Plan: Modified barium swallow ordered ST ordered Continue tube feeding (9) Neck pain: Code(s): M54.2 - Cervicalgia Status: Acute Assessment and Plan: In the middle and goes to bilateral shoulder Lidocaine patch ordered Time Spent With Patient Time with patient: Greater than 35 minutes Subjective Date/time seen: 06/01/21 11:00 Interval history: Date/Time: 05/31/21 14:30 Narrative: patient is a 75-year-old male with a past medical history of colon cancer, hypertension, BPH, hyperlipidemia, REY , Parkinson's who presented the ED with his for falls. patient was recently admitted to the hospital for generalized weakness. Patient was discharged to rehab in finally returned home on Thursday. Patient was able to walk up stairs when he got home however he has been very lethargic and been sleeping most of the time. Upon arrival to the patient's room he was relatively hard to awake. He did open his eyes and stated that he felt pretty good. He seems to be weak, and fluid volume overloaded. Lungs are diminished. He is in a sinus fatemeh. Patient's to come into the room and explained to me that the patient was admitted here in May and was sent to rehab at [place] May 10. Patient was doing well however Thursday they wanted to move the patient into a COVID room and the was not okay with that due to his underlying illness. Upon that moment patient's decided that it would
--- NOTE | 2021-06-01 11:00 | P.PNIM_ITS ---
Progress Note: A&P Assessment and Plan (1) Weakness: Code(s): R53.1 - Weakness Status: Acute Assessment and Plan: * Notable weakness at home * Just Discharged from rehab * No report of falling * Patient was able to walk 13 stairs * fall precautions * PT/OT (2) Parkinsons: Code(s): G20 - Parkinson's disease Status: Acute Assessment and Plan: * Continue home Sinemet * PT/OT (3) Colon cancer metastasized to multiple sites: Code(s): C18.9 - Malignant neoplasm of colon, unspecified Status: Acute Assessment and Plan: * Last chemo was last NOV * reports recent colonoscopy with no findings * Supportive care * Continue home Reglan (4) CHF (congestive heart failure): Code(s): I50.9 - Heart failure, unspecified Status: Acute Assessment and Plan: * Unable to determine acute/chronic, diastolic/systolic * Not convinced this is an exacerbation * 99% on room air * Chest xray did mention pulmonary edema * 3-4+ bilateral lower extremity * BNP slightly elevated at 460 * Look to take 30mg lasix per feeding tube * Will start 40mg IV BID * sodium does indicate probable overload * Obtain echo * Daily weights * Trend urine output (5) Abnormal finding on urinalysis: Code(s): R82.90 - Unspecified abnormal findings in urine Status: Acute Assessment and Plan: * UA showed clear urine, 2+ leukocyte esterase, WBC 31-50, 1+ Bacteria * Continue ceftriaxone * Urine culture pending, continue to follow * Unable to determine if this is a UTI due to pending culture * WBC 7.7 * Trend output * Tailor antibiotics to culture results (6) Pneumonia: Code(s): J18.9 - Pneumonia, unspecified organism Status: Acute Assessment and Plan: * Chest xray shows PNA vs Pulm edema * Antibiotics on board * Repeat chest xray in two days * Not sure that sputum culture came be obtained * WBC 7.7 tending down * Trend labs (7) Acute metabolic encephalopathy: Code(s): G93.41 - Metabolic encephalopathy Status: Acute Assessment and Plan: * Seems to be better today * Wonder if some of this is from the Reglan, Hold for now * Started scopolamine for now * Clear tone and voice * Head CT normal * Hold all medications that could cause somnolent behavior * Trend behavior (8) Dysphasia: Code(s): R47.02 - Dysphasia Status: Acute Assessment and Plan: * Modified barium swallow ordered * ST ordered * Continue tube feeding (9) Neck pain: Code(s): M54.2 - Cervicalgia Status: Acute Assessment and Plan: * In the middle and goes to bilateral shoulder * Lidocaine patch ordered Time Spent With Patient Time with patient: Greater than 35 minutes Subjective Date/time seen: 06/01/21 11:00 Interval history: Date/Time: 05/31/21 14:30 Narrative: patient is a 75-year-old male with a past medical history of colon cancer, hypertension, BPH, hyperlipidemia, REY , Parkinson's who presented the ED with his for falls. patient was recently admitted to the hospital for generalized weakness. Patient was discharged to rehab in finally returned home on Thursday. Patient was able to walk up stairs when he got home however he has
[2021-06-01] MEDS: ENOXAPARIN 40 MG/0.4 ML SYRINGE SUB-Q (11:52)
[2021-06-01 11:56] LABS: Glucose Point of Care 166 mg/dl (65-105)
--- NOTE | 2021-06-01 13:10 | PC.NURSE ---
Assessments performed by Pop Nayak and Rink[facility] student were reviewed and verified, Lisbet Pineda RN. I agree with the charted assessment on this patient.
[2021-06-01] MEDS: LIDOCAINE 5% PATCH 1 PATCH TRANSDERM (13:38)
[2021-06-01] MEDS: SCOPOLAMINE 1.5 MG PATCH TRANSDERM (13:38)
[2021-06-01 18:21] LABS: Glucose Point of Care 162 mg/dl (65-105)
[2021-06-01] MEDS: FERROUS SULFATE LIQUID 325 MG/7.4 ML ELIXIR FEED TUBE (20:47)
[2021-06-02] VITALS (10 sets, daily range): BP systolic 105–120; BP diastolic 54–60; PULSE 64–83; RESP 16–18; TEMP 36.2–37; O2SAT 97–100
[2021-06-02 01:37] LABS: Glucose Point of Care 91 mg/dl (65-105)
[2021-06-02 05:12] LABS: Basophils Absolute Auto 0.1 K/mm3 (0.0-0.1); Basophils Percent Auto 0.8 % (0.2-1.2); Eosinophils Absolute Auto 0.4 K/mm3 (0-0.3); Eosinophils Percent Auto 5.5 % (0-4.4); Hematocrit 31.9 % (42.0-52.0); Hemoglobin 9.8 g/dL (14.0-18.0); Immature Granulocyte Absolute 0.05 K/mm3 (0.00-0.031); Immature Granulocyte Percent A 0.7 % (0-0.5); Lymphocytes Absolute Auto 0.94 K/mm3 (0.9-3.2); Lymphocytes Percent Auto 13.2 % (18.3-44.2); Mean Corpuscular HGB Conc 30.7 g/dl (32-36); Mean Corpuscular Hemoglobin 30.4 pg (26-34); Mean Corpuscular Volume 99.1 fl (80-100); Mean Platelet Volume 9.7 fl (7.4-10.4); Monocytes Percent Auto 13.7 % (2.6-8.5); Neutrophils Absolute Auto 4.7 K/mm3 (1.3-6.7); Neutrophils Percent Auto 66.1 % (45.5-73.1); Platelet Count Result 162 k/mm3 (150-375); Red Blood Count 3.22 M/mm3 (4.6-6.20); Red Cell Distribution Width 16.3 % (11.5-14.5); White Blood Count 7.1 K/mm3 (4.5-10.0)
[2021-06-02 05:29] LABS: Alanine Aminotransferase 11 U/L (4-50); Albumin Level 2.8 g/dL (3.5-5.1); Alkaline Phosphatase 78 U/L (38-126); Anion Gap 5 mmol/L (8-16); Aspartate Amino Transferase 30 U/L (17-59); Bilirubin,Total 0.2 mg/dL (0.2-1.3); Blood Urea Nitrogen 38 mg/dL (9-20); Calcium 8.1 mg/dL (8.4-10.2); Carbon Dioxide 30 mmol/L (22-30); Chloride 103 mmol/L (98-107); Estimated CRCL calculation 52 ml/min; Estimated Glomerular Filt Rate 59; Glucose 93 mg/dL (65-110); Magnesium 1.9 mg/dL (1.6-2.3); Potassium 3.9 mmol/L (3.4-5.0); Sodium 138 mmol/L (137-145)
[2021-06-02] MEDS: LEVOTHYROXINE SODIUM 88 MCG TABLET FEED TUBE (05:36)
[2021-06-02 06:11] LABS: Vitamin D 25 Hydroxy 25.4 ng/mL
[2021-06-02] MEDS: FINASTERIDE 5 MG TABLET FEED TUBE (09:43)
[2021-06-02] MEDS: CARBIDOPA/LEVODOPA 25/100 MG TABLET 1 TABLET FEED TUBE ×4 (09:43→21:48)
[2021-06-02] MEDS: GABAPENTIN 400 MG CAPSULE XX ×2 (09:43→18:31)
[2021-06-02] MEDS: CHOLECALCIFEROL 1,000 UNITS TABLET 5000 UNITS FEED TUBE (09:44)
[2021-06-02] MEDS: ENOXAPARIN 40 MG/0.4 ML SYRINGE SUB-Q (09:44)
[2021-06-02] MEDS: amLODIPine BESYLATE 5 MG TABLET 10 MG FEED TUBE (09:44)
[2021-06-02] MEDS: FUROSEMIDE INJ 40 MG/4 ML VIAL IV PUSH (09:44)
[2021-06-02] MEDS: FAMOTIDINE 20 MG TABLET FEED TUBE ×2 (09:44→21:48)
--- NOTE | 2021-06-02 09:52 | PCSTNOTE ---
Attempted MBS this morning. Pt. and pt.'s refused MBS second to [employer]ER that would be performing the evaluation. Family has indicated a request for a specific CROCODILE FARMER at this facility that has worked with this pt. prior. CROCODILE FARMER that family has requested will complete MBS on 06/03/21.
--- NOTE | 2021-06-02 10:30 | P.PNIM_ITS ---
Progress Note: A&P Assessment and Plan (1) Weakness: Code(s): R53.1 - Weakness Status: Acute Assessment and Plan: * Notable weakness at home * Just Discharged from rehab * No report of falling * Patient was able to walk 13 stairs * fall precautions * PT/OT (2) Parkinsons: Code(s): G20 - Parkinson's disease Status: Acute Assessment and Plan: * Continue home Sinemet * PT/OT (3) Colon cancer metastasized to multiple sites: Code(s): C18.9 - Malignant neoplasm of colon, unspecified Status: Acute Assessment and Plan: * Last chemo was last NOV * reports recent colonoscopy with no findings * Supportive care * Continue home Reglan (4) CHF (congestive heart failure): Code(s): I50.9 - Heart failure, unspecified Status: Acute Assessment and Plan: * Unable to determine acute/chronic, diastolic/systolic * Not convinced this is an exacerbation * 99% on room air * Chest xray did mention pulmonary edema * 1+ bilateral lower extremity * BNP slightly elevated at 460 * Look to take 30mg lasix per feeding tube * start 40mg IV BID, decrease to daily * sodium does indicate probable overload * echo 65-70% with grade 1 diastolic dysfunction * Daily weights * Anthony hose * Trend urine output (5) Pneumonia: Code(s): J18.9 - Pneumonia, unspecified organism Status: Acute Assessment and Plan: * Chest xray shows PNA vs Pulm edema * Antibiotics on board * Repeat chest xray 06/02/21 * Not sure that sputum culture came be obtained * WBC 7.7 tending down * Trend labs (6) Acute metabolic encephalopathy: Code(s): G93.41 - Metabolic encephalopathy Status: Acute Assessment and Plan: * Seems to be better today * Wonder if some of this is from the Reglan, Hold for now * Started scopolamine for now * Clear tone and voice * Head CT normal * Hold all medications that could cause somnolent behavior * Trend behavior (7) Dysphasia: Code(s): R47.02 - Dysphasia Status: Acute Assessment and Plan: * Modified barium swallow ordered * ST ordered * Continue tube feeding (8) Neck pain: Code(s): M54.2 - Cervicalgia Status: Acute Assessment and Plan: * In the middle and goes to bilateral shoulder * Lidocaine patch ordered (9) Acute UTI: Code(s): N39.0 - Urinary tract infection, site not specified Status: Acute Assessment and Plan: * UA showed clear urine, 2+ leukocyte esterase, WBC 31-50, 1+ Bacteria * Continue ceftriaxone acceptable * Urine culture grew Ecoli * Unable to determine if this is a UTI due to pending culture * WBC 7.1 * Trend output (10) Chronic anemia: Code(s): D64.9 - Anemia, unspecified Status: Acute Assessment and Plan: * Anemia noted which seems to be iron deficient gathered from his home medications * Will repeat anemia labs in the am * H/H stable however seems lower than his baseline which looks to be 11-13 * Current H/H 9.8/31.9 * Increase home supplementation 330mg BID * Trend labs Time Spent With Patient Time with patient: Greater than 35 minutes Subjective Date/time seen: 06/02/21 07:24 Interv
--- NOTE | 2021-06-02 10:30 | PM.IMPN ---
Progress Note: A&P Assessment and Plan (1) Weakness: Code(s): R53.1 - Weakness Status: Acute Assessment and Plan: Notable weakness at home Just Discharged from rehab No report of falling Patient was able to walk 13 stairs fall precautions PT/OT (2) Parkinsons: Code(s): G20 - Parkinson's disease Status: Acute Assessment and Plan: Continue home Sinemet PT/OT (3) Colon cancer metastasized to multiple sites: Code(s): C18.9 - Malignant neoplasm of colon, unspecified Status: Acute Assessment and Plan: Last chemo was last FEB reports recent colonoscopy with no findings Supportive care Continue home Reglan (4) CHF (congestive heart failure): Code(s): I50.9 - Heart failure, unspecified Status: Acute Assessment and Plan: Unable to determine acute/chronic, diastolic/systolic Not convinced this is an exacerbation 99% on room air Chest xray did mention pulmonary edema 1+ bilateral lower extremity BNP slightly elevated at 460 Look to take 30mg lasix per feeding tube start 40mg IV BID, decrease to daily sodium does indicate probable overload echo 65-70% with grade 1 diastolic dysfunction Daily weights Anthony hose Trend urine output (5) Pneumonia: Code(s): J18.9 - Pneumonia, unspecified organism Status: Acute Assessment and Plan: Chest xray shows PNA vs Pulm edema Antibiotics on board Repeat chest xray 06/02/21 Not sure that sputum culture came be obtained WBC 7.7 tending down Trend labs (6) Acute metabolic encephalopathy: Code(s): G93.41 - Metabolic encephalopathy Status: Acute Assessment and Plan: Seems to be better today Wonder if some of this is from the Reglan, Hold for now Started scopolamine for now Clear tone and voice Head CT normal Hold all medications that could cause somnolent behavior Trend behavior (7) Dysphasia: Code(s): R47.02 - Dysphasia Status: Acute Assessment and Plan: Modified barium swallow ordered ST ordered Continue tube feeding (8) Neck pain: Code(s): M54.2 - Cervicalgia Status: Acute Assessment and Plan: In the middle and goes to bilateral shoulder Lidocaine patch ordered (9) Acute UTI: Code(s): N39.0 - Urinary tract infection, site not specified Status: Acute Assessment and Plan: UA showed clear urine, 2+ leukocyte esterase, WBC 31-50, 1+ Bacteria Continue ceftriaxone acceptable Urine culture grew Ecoli Unable to determine if this is a UTI due to pending culture WBC 7.1 Trend output (10) Chronic anemia: Code(s): D64.9 - Anemia, unspecified Status: Acute Assessment and Plan: Anemia noted which seems to be iron deficient gathered from his home medications Will repeat anemia labs in the am H/H stable however seems lower than his baseline which looks to be 11-13 Current H/H 9.8/31.9 Increase home supplementation 330mg BID Trend labs Time Spent With Patient Time with patient: Greater than 35 minutes Subjective Date/time seen: 06/02/21 07:24 Interval history: Date/Time: 05/31/21 14:30 Narrative: patient is a 75-year-old male with a past medical history of colon cancer, hypertension, BPH, hyperlipidemia, REY , Parkinson's who presented the ED with his for falls. patient was recently admitted to the hospital for generalized weakness. Patient was discharged to rehab in finally returned home on Thursday. Patient was able to walk up stairs when he got home however he has been very lethargic and been sleeping most of the time. Upon arrival to the patient's room he was relatively hard to awake. He did open his eyes and stated that he felt pretty good. He seems to be weak, and fluid volume overloaded. Lungs are diminished. He is in a s
[2021-06-02 12:07] LABS: Glucose Point of Care 151 mg/dl (65-105)
[2021-06-02] MEDS: PHENYLEPH/SHARK OIL/MO/PETROL CREAM 26 GM 1 APPLIC RECTAL (13:03)
[2021-06-02 20:32] LABS: Glucose Point of Care 145 mg/dl (65-105)
[2021-06-02] MEDS: FERROUS SULFATE LIQUID 325 MG/7.4 ML ELIXIR FEED TUBE (21:48)
[2021-06-03] VITALS (9 sets, daily range): BP systolic 107–118; BP diastolic 63–64; PULSE 58–82; RESP 16–18; TEMP 36.1–36.3; O2SAT 96–98; BMI 33.9
[2021-06-03 00:21] LABS: Glucose Point of Care 187 mg/dl (65-105)
[2021-06-03] MEDS: LEVOTHYROXINE SODIUM 88 MCG TABLET FEED TUBE (06:22)
[2021-06-03 07:11] LABS: Glucose Point of Care 86 mg/dl (65-105)
[2021-06-03] MEDS: CHOLECALCIFEROL 1,000 UNITS TABLET 5000 UNITS FEED TUBE (08:09)
[2021-06-03] MEDS: FAMOTIDINE 20 MG TABLET FEED TUBE ×2 (08:09→20:04)
[2021-06-03] MEDS: ENOXAPARIN 40 MG/0.4 ML SYRINGE SUB-Q (08:09)
[2021-06-03] MEDS: GABAPENTIN 400 MG CAPSULE XX ×2 (08:10→18:00)
[2021-06-03] MEDS: CARBIDOPA/LEVODOPA 25/100 MG TABLET 1 TABLET FEED TUBE ×2 (08:10→13:32)
[2021-06-03] MEDS: amLODIPine BESYLATE 5 MG TABLET 10 MG FEED TUBE (08:10)
[2021-06-03] MEDS: FINASTERIDE 5 MG TABLET FEED TUBE (08:10)
[2021-06-03] MEDS: PHENYLEPH/SHARK OIL/MO/PETROL CREAM 26 GM 1 APPLIC RECTAL (08:11)
[2021-06-03] MEDS: LIDOCAINE 5% PATCH 1 PATCH TRANSDERM (08:11)
[2021-06-03 08:52] LABS: Basophils Absolute Auto 0.1 K/mm3 (0.0-0.1); Eosinophils Absolute Auto 0.6 K/mm3 (0-0.3); Eosinophils Percent Auto 7.8 % (0-4.4); Hematocrit 32.4 % (42.0-52.0); Immature Granulocyte Absolute 0.06 K/mm3 (0.00-0.031); Immature Granulocyte Percent A 0.8 % (0-0.5); Lymphocytes Absolute Auto 0.96 K/mm3 (0.9-3.2); Lymphocytes Percent Auto 13.1 % (18.3-44.2); Mean Corpuscular HGB Conc 30.9 g/dl (32-36); Mean Corpuscular Hemoglobin 30.4 pg (26-34); Mean Corpuscular Volume 98.5 fl (80-100); Mean Platelet Volume 9.7 fl (7.4-10.4); Monocytes Percent Auto 12.9 % (2.6-8.5); Neutrophils Absolute Auto 4.7 K/mm3 (1.3-6.7); Neutrophils Percent Auto 64.4 % (45.5-73.1); Platelet Count Result 152 k/mm3 (150-375); Red Blood Count 3.29 M/mm3 (4.6-6.20); Red Cell Distribution Width 16.3 % (11.5-14.5); White Blood Count 7.3 K/mm3 (4.5-10.0)
[2021-06-03 09:04] LABS: Alanine Aminotransferase 11 U/L (4-50); Albumin Level 3.1 g/dL (3.5-5.1); Alkaline Phosphatase 79 U/L (38-126); Anion Gap 7 mmol/L (8-16); Aspartate Amino Transferase 28 U/L (17-59); Bilirubin,Total 0.3 mg/dL (0.2-1.3); Blood Urea Nitrogen 39 mg/dL (9-20); Calcium 8.3 mg/dL (8.4-10.2); Carbon Dioxide 27 mmol/L (22-30); Chloride 104 mmol/L (98-107); Estimated CRCL calculation 52 ml/min; Estimated Glomerular Filt Rate 59; Glucose 95 mg/dL (65-110); Potassium 3.9 mmol/L (3.4-5.0); Sodium 138 mmol/L (137-145)
--- NOTE | 2021-06-03 09:45 | PM.IMPN ---
Progress Note: A&P Assessment and Plan (1) Weakness: Code(s): R53.1 - Weakness Status: Acute Assessment and Plan: Notable weakness at home Just Discharged from rehab No report of falling Patient was able to walk 13 stairs fall precautions PT/OT (2) Parkinsons: Code(s): G20 - Parkinson's disease Status: Acute Assessment and Plan: Continue home Sinemet, double dose at this time Talked to Dr. Rebolledo about the patient who stated to just double to dose PT/OT (3) Colon cancer metastasized to multiple sites: Code(s): C18.9 - Malignant neoplasm of colon, unspecified Status: Acute Assessment and Plan: Last chemo was last FEB reports recent colonoscopy with no findings Supportive care Continue home Reglan (4) CHF (congestive heart failure): Code(s): I50.9 - Heart failure, unspecified Status: Acute Assessment and Plan: Unable to determine acute/chronic, diastolic/systolic Not convinced this is an exacerbation 99% on room air Chest xray did mention pulmonary edema 1+ bilateral lower extremity BNP slightly elevated at 460 Look to take 30mg lasix per feeding tube start 40mg IV BID, decrease to daily sodium does indicate probable overload echo 65-70% with grade 1 diastolic dysfunction Daily weights Anthony hose Trend urine output (5) Pneumonia: Code(s): J18.9 - Pneumonia, unspecified organism Status: Acute Assessment and Plan: Chest xray shows PNA vs Pulm edema Antibiotics on board Repeat chest xray 06/02/21 Small amount of basilar edema or pneumonia unchanged. Not sure that sputum culture came be obtained WBC 7.3 tending down Trend labs (6) Acute metabolic encephalopathy: Code(s): G93.41 - Metabolic encephalopathy Status: Acute Assessment and Plan: Seems to be better today Wonder if some of this is from the Reglan, Hold for now Started scopolamine for now Clear tone and voice Head CT normal Hold all medications that could cause somnolent behavior Trend behavior (7) Dysphasia: Code(s): R47.02 - Dysphasia Status: Acute Assessment and Plan: Modified barium swallow Mild laryngeal penetration without aspiration. ST ordered Continue tube feeding (8) Neck pain: Code(s): M54.2 - Cervicalgia Status: Acute Assessment and Plan: In the middle and goes to bilateral shoulder Lidocaine patch ordered (9) Acute UTI: Code(s): N39.0 - Urinary tract infection, site not specified Status: Acute Assessment and Plan: UA showed clear urine, 2+ leukocyte esterase, WBC 31-50, 1+ Bacteria Continue ceftriaxone acceptable Urine culture grew Ecoli Unable to determine if this is a UTI due to pending culture WBC 7.3 Trend output (10) Chronic anemia: Code(s): D64.9 - Anemia, unspecified Status: Acute Assessment and Plan: Anemia noted which seems to be iron deficient gathered from his home medications Will repeat anemia labs in the am H/H stable however seems lower than his baseline which looks to be 11-13 Current H/H 10.0/32.4 Increase home supplementation 330mg BID Trend labs Time Spent With Patient Time with patient: Greater than 35 minutes Subjective Date/time seen: 06/03/21 0945 Interval history: Date/Time: 05/31/21 14:30 Narrative: patient is a 75-year-old male with a past medical history of colon cancer, hypertension, BPH, hyperlipidemia, REY , Parkinson's who presented the ED with his for falls. patient was recently admitted to the hospital for generalized weakness. Patient was discharged to rehab in finally returned home on Thursday. Patient was able to walk up stairs when he got home however he has been very lethargic and been sleeping most of the time. [facility] arrival to the [facility]
--- NOTE | 2021-06-03 09:45 | P.PNIM_ITS ---
Progress Note: A&P Assessment and Plan (1) Weakness: Code(s): R53.1 - Weakness Status: Acute Assessment and Plan: * Notable weakness at home * Just Discharged from rehab * No report of falling * Patient was able to walk 13 stairs * fall precautions * PT/OT (2) Parkinsons: Code(s): G20 - Parkinson's disease Status: Acute Assessment and Plan: * Continue home Sinemet, double dose at this time * Talked to Dr. Rebolledo about the patient who stated to just double to dose * PT/OT (3) Colon cancer metastasized to multiple sites: Code(s): C18.9 - Malignant neoplasm of colon, unspecified Status: Acute Assessment and Plan: * Last chemo was last NOV * reports recent colonoscopy with no findings * Supportive care * Continue home Reglan (4) CHF (congestive heart failure): Code(s): I50.9 - Heart failure, unspecified Status: Acute Assessment and Plan: * Unable to determine acute/chronic, diastolic/systolic * Not convinced this is an exacerbation * 99% on room air * Chest xray did mention pulmonary edema * 1+ bilateral lower extremity * BNP slightly elevated at 460 * Look to take 30mg lasix per feeding tube * start 40mg IV BID, decrease to daily * sodium does indicate probable overload * echo 65-70% with grade 1 diastolic dysfunction * Daily weights * Anthony hose * Trend urine output (5) Pneumonia: Code(s): J18.9 - Pneumonia, unspecified organism Status: Acute Assessment and Plan: * Chest xray shows PNA vs Pulm edema * Antibiotics on board * Repeat chest xray 06/02/21 Small amount of basilar edema or pneumonia unchanged. * Not sure that sputum culture came be obtained * WBC 7.3 tending down * Trend labs (6) Acute metabolic encephalopathy: Code(s): G93.41 - Metabolic encephalopathy Status: Acute Assessment and Plan: * Seems to be better today * Wonder if some of this is from the Reglan, Hold for now * Started scopolamine for now * Clear tone and voice * Head CT normal * Hold all medications that could cause somnolent behavior * Trend behavior (7) Dysphasia: Code(s): R47.02 - Dysphasia Status: Acute Assessment and Plan: * Modified barium swallow Mild laryngeal penetration without aspiration. * ST ordered * Continue tube feeding (8) Neck pain: Code(s): M54.2 - Cervicalgia Status: Acute Assessment and Plan: * In the middle and goes to bilateral shoulder * Lidocaine patch ordered (9) Acute UTI: Code(s): N39.0 - Urinary tract infection, site not specified Status: Acute Assessment and Plan: * UA showed clear urine, 2+ leukocyte esterase, WBC 31-50, 1+ Bacteria * Continue ceftriaxone acceptable * Urine culture grew Ecoli * Unable to determine if this is a UTI due to pending culture * WBC 7.3 * Trend output (10) Chronic anemia: Code(s): D64.9 - Anemia, unspecified Status: Acute Assessment and Plan: * Anemia noted which seems to be iron deficient gathered from his home medications * Will repeat anemia labs in the am * H/H stable however seems lower than his baseline which looks to be 11-13 * Current H/H 10.0/32.4 * Increase home supplementation 330mg B
[2021-06-03 11:38] LABS: Glucose Point of Care 153 mg/dl (65-105)
[2021-06-03 16:29] LABS: Glucose Point of Care 151 mg/dl (65-105)
[2021-06-03] MEDS: CARBIDOPA/LEVODOPA 25/100 MG TABLET 2 TABLET FEED TUBE ×2 (18:00→20:04)
[2021-06-03] MEDS: FERROUS SULFATE LIQUID 325 MG/7.4 ML ELIXIR FEED TUBE (20:04)
[2021-06-03] MEDS: CENTRAL LINE FLUSH 10 ML IV PUSH (20:04)
[2021-06-03] MEDS: ACETAMINOPHEN 325 MG TABLET 650 MG FEED TUBE (20:12)
[2021-06-04] VITALS: PULSE 73
[2021-06-04 01:09] LABS: Glucose Point of Care 151 mg/dl (65-105)
[2021-06-04 04:00] VITALS: PULSE 62
[2021-06-04 05:04] VITALS: BP 123/64; PULSE 69; RESP 16; TEMP 36.3; O2SAT 100
[2021-06-04] MEDS: CENTRAL LINE FLUSH 10 ML IV PUSH (06:07)
[2021-06-04] MEDS: LEVOTHYROXINE SODIUM 88 MCG TABLET FEED TUBE (06:07)
[2021-06-04 06:47] LABS: Glucose Point of Care 94 mg/dl (65-105)
[2021-06-04 08:00] VITALS: PULSE 67
[2021-06-04] MEDS: ENOXAPARIN 40 MG/0.4 ML SYRINGE SUB-Q (08:06)
[2021-06-04] MEDS: FAMOTIDINE 20 MG TABLET FEED TUBE (08:06)
[2021-06-04] MEDS: CHOLECALCIFEROL 1,000 UNITS TABLET 5000 UNITS FEED TUBE (08:06)
[2021-06-04] MEDS: CARBIDOPA/LEVODOPA 25/100 MG TABLET 2 TABLET FEED TUBE ×2 (08:07→12:48)
[2021-06-04] MEDS: amLODIPine BESYLATE 5 MG TABLET 10 MG FEED TUBE (08:07)
[2021-06-04] MEDS: FINASTERIDE 5 MG TABLET FEED TUBE (08:08)
[2021-06-04] MEDS: GABAPENTIN 400 MG CAPSULE XX (08:08)
[2021-06-04] MEDS: PHENYLEPH/SHARK OIL/MO/PETROL CREAM 26 GM 1 APPLIC RECTAL (08:09)
[2021-06-04] MEDS: SCOPOLAMINE 1.5 MG PATCH TRANSDERM (08:10)
[2021-06-04 08:20] VITALS: BP 119/72; PULSE 67; RESP 17; TEMP 36.9; O2SAT 96
[2021-06-04 09:23] LABS: Basophils Absolute Auto 0.1 K/mm3 (0.0-0.1); Basophils Percent Auto 0.8 % (0.2-1.2); Eosinophils Absolute Auto 0.5 K/mm3 (0-0.3); Eosinophils Percent Auto 7.6 % (0-4.4); Hematocrit 35.4 % (42.0-52.0); Hemoglobin 10.8 g/dL (14.0-18.0); Immature Granulocyte Absolute 0.06 K/mm3 (0.00-0.031); Immature Granulocyte Percent A 0.8 % (0-0.5); Lymphocytes Absolute Auto 0.72 K/mm3 (0.9-3.2); Lymphocytes Percent Auto 10.1 % (18.3-44.2); Mean Corpuscular HGB Conc 30.5 g/dl (32-36); Mean Corpuscular Hemoglobin 29.9 pg (26-34); Mean Corpuscular Volume 98.1 fl (80-100); Mean Platelet Volume 9.5 fl (7.4-10.4); Monocytes Absolute Auto 0.9 K/mm3 (0.1-0.6); Monocytes Percent Auto 12.8 % (2.6-8.5); Neutrophils Absolute Auto 4.8 K/mm3 (1.3-6.7); Neutrophils Percent Auto 67.9 % (45.5-73.1); Platelet Count Result 154 k/mm3 (150-375); Red Blood Count 3.61 M/mm3 (4.6-6.20); Red Cell Distribution Width 16.3 % (11.5-14.5); White Blood Count 7.1 K/mm3 (4.5-10.0)
[2021-06-04] MEDS: ACETAMINOPHEN 325 MG TABLET 650 MG FEED TUBE (09:30)
[2021-06-04 09:45] LABS: Alanine Aminotransferase 9 U/L (4-50); Albumin Level 3.3 g/dL (3.5-5.1); Alkaline Phosphatase 78 U/L (38-126); Anion Gap 6 mmol/L (8-16); Aspartate Amino Transferase 28 U/L (17-59); Bilirubin,Total 0.3 mg/dL (0.2-1.3); Blood Urea Nitrogen 46 mg/dL (9-20); Calcium 8.4 mg/dL (8.4-10.2); Carbon Dioxide 30 mmol/L (22-30); Chloride 103 mmol/L (98-107); Estimated CRCL calculation 52 ml/min; Estimated Glomerular Filt Rate 59; Glucose 109 mg/dL (65-110); Potassium 4.4 mmol/L (3.4-5.0); Sodium 139 mmol/L (137-145)
--- NOTE | 2021-06-04 11:00 | P.DS_ITS ---
DS: Admitting Diagnosis Discharge Date 06/04/21 1100 Admitting Diagnosis UTI/Weakness DS: Discharge Diagnosis Discharge Diagnosis (1) Weakness: Code(s): R53.1 - Weakness Status: Acute Assessment and Plan: * Notable weakness at home * Just Discharged from rehab * No report of falling * Patient was able to walk 13 stairs * fall precautions * PT/OT (2) Parkinsons: Code(s): G20 - Parkinson's disease Status: Acute Assessment and Plan: * Continue home Sinemet, double dose at this time * Talked to Dr. Rebolledo about the patient who stated to just double to dose * PT/OT (3) Colon cancer metastasized to multiple sites: Code(s): C18.9 - Malignant neoplasm of colon, unspecified Status: Acute Assessment and Plan: * Last chemo was last NOV * reports recent colonoscopy with no findings * Supportive care * Continue home Reglan (4) CHF (congestive heart failure): Code(s): I50.9 - Heart failure, unspecified Status: Acute Assessment and Plan: * Unable to determine acute/chronic, diastolic/systolic * Not convinced this is an exacerbation * 99% on room air * Chest xray did mention pulmonary edema * 1+ bilateral lower extremity * BNP slightly elevated at 460 * Look to take 30mg lasix per feeding tube * start 40mg IV BID, decrease to daily * sodium does indicate probable overload * echo 65-70% with grade 1 diastolic dysfunction * Daily weights * Anthony hose * Trend urine output (5) Pneumonia: Code(s): J18.9 - Pneumonia, unspecified organism Status: Acute Assessment and Plan: * Chest xray shows PNA vs Pulm edema * Antibiotics on board * Repeat chest xray 06/02/21 Small amount of basilar edema or pneumonia unchanged. * Not sure that sputum culture came be obtained * WBC 7.3 tending down * Trend labs (6) Acute metabolic encephalopathy: Code(s): G93.41 - Metabolic encephalopathy Status: Acute Assessment and Plan: * Seems to be better today * Wonder if some of this is from the Reglan, Hold for now * Started scopolamine for now * Clear tone and voice * Head CT normal * Hold all medications that could cause somnolent behavior * Trend behavior (7) Dysphasia: Code(s): R47.02 - Dysphasia Status: Acute Assessment and Plan: * Modified barium swallow Mild laryngeal penetration without aspiration. * ST ordered * Continue tube feeding (8) Neck pain: Code(s): M54.2 - Cervicalgia Status: Acute Assessment and Plan: * In the middle and goes to bilateral shoulder * Lidocaine patch ordered (9) Acute UTI: Code(s): N39.0 - Urinary tract infection, site not specified Status: Acute Assessment and Plan: * UA showed clear urine, 2+ leukocyte esterase, WBC 31-50, 1+ Bacteria * Continue ceftriaxone acceptable * Urine culture grew Ecoli * Unable to determine if this is a UTI due to pending culture * WBC 7.3 * Trend output (10) Chronic anemia: Code(s): D64.9 - Anemia, unspecified Status: Acute Assessment and Plan: * Anemia noted which seems to be iron deficient gathered from his home medications * Will repeat anemia labs in the am * H/H stable however s
--- NOTE | 2021-06-04 11:00 | PM.DS ---
DS: Admitting Diagnosis Discharge Date 06/04/21 1100 Admitting Diagnosis UTI/Weakness DS: Discharge Diagnosis Discharge Diagnosis (1) Weakness: Code(s): R53.1 - Weakness Status: Acute Assessment and Plan: Notable weakness at home Just Discharged from rehab No report of falling Patient was able to walk 13 stairs fall precautions PT/OT (2) Parkinsons: Code(s): G20 - Parkinson's disease Status: Acute Assessment and Plan: Continue home Sinemet, double dose at this time Talked to Dr. Rebolledo about the patient who stated to just double to dose PT/OT (3) Colon cancer metastasized to multiple sites: Code(s): C18.9 - Malignant neoplasm of colon, unspecified Status: Acute Assessment and Plan: Last chemo was last FEB reports recent colonoscopy with no findings Supportive care Continue home Reglan (4) CHF (congestive heart failure): Code(s): I50.9 - Heart failure, unspecified Status: Acute Assessment and Plan: Unable to determine acute/chronic, diastolic/systolic Not convinced this is an exacerbation 99% on room air Chest xray did mention pulmonary edema 1+ bilateral lower extremity BNP slightly elevated at 460 Look to take 30mg lasix per feeding tube start 40mg IV BID, decrease to daily sodium does indicate probable overload echo 65-70% with grade 1 diastolic dysfunction Daily weights Anthony hose Trend urine output (5) Pneumonia: Code(s): J18.9 - Pneumonia, unspecified organism Status: Acute Assessment and Plan: Chest xray shows PNA vs Pulm edema Antibiotics on board Repeat chest xray 06/02/21 Small amount of basilar edema or pneumonia unchanged. Not sure that sputum culture came be obtained WBC 7.3 tending down Trend labs (6) Acute metabolic encephalopathy: Code(s): G93.41 - Metabolic encephalopathy Status: Acute Assessment and Plan: Seems to be better today Wonder if some of this is from the Reglan, Hold for now Started scopolamine for now Clear tone and voice Head CT normal Hold all medications that could cause somnolent behavior Trend behavior (7) Dysphasia: Code(s): R47.02 - Dysphasia Status: Acute Assessment and Plan: Modified barium swallow Mild laryngeal penetration without aspiration. ST ordered Continue tube feeding (8) Neck pain: Code(s): M54.2 - Cervicalgia Status: Acute Assessment and Plan: In the middle and goes to bilateral shoulder Lidocaine patch ordered (9) Acute UTI: Code(s): N39.0 - Urinary tract infection, site not specified Status: Acute Assessment and Plan: UA showed clear urine, 2+ leukocyte esterase, WBC 31-50, 1+ Bacteria Continue ceftriaxone acceptable Urine culture grew Ecoli Unable to determine if this is a UTI due to pending culture WBC 7.3 Trend output (10) Chronic anemia: Code(s): D64.9 - Anemia, unspecified Status: Acute Assessment and Plan: Anemia noted which seems to be iron deficient gathered from his home medications Will repeat anemia labs in the am H/H stable however seems lower than his baseline which looks to be 11-13 Current H/H 10.0/32.4 Increase home supplementation 330mg BID Trend labs DS: Summary Hospital Course Hospital Course: Patient is a 75-year-old male with a past medical history of colon cancer with metastasis, Parkinson's disease, dysphagia who presented to the ED for evaluation weakness and acute metabolic encephalopathy. Patient just left rehab a few days prior and came home where he was able to walk 15 steps. It was noted the patient became very weak and obtunded. Urine culture was found have 2+ leukocytes esterase, wbc's 31-50, 1+ bacteria. Patient was started on IV ceftriaxone. Urine culture di
[2021-06-04 11:29] VITALS: BP 110/59; PULSE 74; RESP 16; TEMP 36.1; O2SAT 96
[2021-06-04 11:33] LABS: Glucose Point of Care 131 mg/dl (65-105)
--- NOTE | 2021-06-04 11:45 | PC.NURSE ---
On 06/04/21, the student, Livier Torres, provided care and completed [facility] documentation on this patient. I have reviewed the student's documentation and agree with the findings.
[2021-06-04] MEDS: KETOROLAC 15 MG/ML VIAL (*BKC) IV PUSH (12:18)
[2021-06-04 13:38] LABS: EDCOVIDSCREEN Negative (Negative)
--- NOTE | 2021-06-04 16:06 | PCSTNOTE ---
MBS was completed 06-03-21; refer to specifics in EMR.
== END 2021-06-04 16:00 | DRG 193 ==
LOC: ANHED 10:53 → ANH3MED 15:20
PROVIDERS: Admitting Provider Internal Medicine; Emergency Provider General Practice; PCP Physician Assistant; Visit Provider Nurse Practitioner
DX: J18.9 Pneumonia, unspecified organism (principal); G93.41 Metabolic encephalopathy; N39.0 Urinary tract infection, site not specified; C18.9 Malignant neoplasm of colon, unspecified; C78.7 Secondary malignant neoplasm of liver and intrahepatic bile duct; Z20.822 Contact with and (suspected) exposure to COVID-19; I11.0 Hypertensive heart disease with heart failure; I50.9 Heart failure, unspecified; B96.20 Unspecified Escherichia coli [E. coli] as the cause of diseases classified elsewhere; R47.02 Dysphasia; M54.2 Cervicalgia; G20 Parkinson's disease; N40.1 Benign prostatic hyperplasia with lower urinary tract symptoms; I10 Essential (primary) hypertension; E03.9 Hypothyroidism, unspecified; E78.2 Mixed hyperlipidemia; G47.33 Obstructive sleep apnea (adult) (pediatric); G62.0 Drug-induced polyneuropathy; T45.1X5A Adverse effect of antineoplastic and immunosuppressive drugs, initial encounter; R13.10 Dysphagia, unspecified
CPT/HCPCS: 36415; 36600; 70450; 71045; 73502; 80053; 81001; 82306; 82375; 82805; 82948; 83050; 83735; 83880; 84484; 85025; 87040; 87077; 87086; 87186; 87426; 92611; 93005; 93306; 96361; 96365; 96366; 96367; 96372; 96375; 96376; 97110; 97162; 97166; 97530; 97535; 99285; A9270; C9803; G0378; J0456; J0696; J1642; J1650; J1885; J1940; J7030; U0003; U0005

== ENCOUNTER 2021-06-13 09:00 | Emergency (ER) | payer MEDICARE, SELFPAY ==
[2021-06-13 09:04] VITALS: BP 125/81; PULSE 70; RESP 36; TEMP 36.5; O2SAT 100
--- NOTE | 2021-06-13 09:20 | ED.ANXIETY ---
HPI - Anxiety General Chief Complaint: Anxiety Stated Complaint: ANXIETY ATTACK Source: patient and family Mode of arrival: EMS Limitations: no limitations History of Present Illness HPI narrative: Patient is a 75-year-old male, with Hx of Parkinson's Disease, HTN, HLD, and metastatic colon cancer, who presents the ED, via EMS, with complaints of anxiety attack. Patient is currently receiving rehabilitation in [place] after being diagnosed with pneumonia and a UTI in May. Patient's at bedside reports patient is scheduled to discharge home this weekend, but has been very anxious about this, stating that he is nervous he is going to fail his when he returns home. He had a panic attack a few days ago, which was treated at the rehab facility. Patient then began to feel anxious again this morning. He became tachypneic and was given hydroxyzine at the rehab facility without relief. EMS was then called to bring the patient here for further evaluation. Patient was tachypneic upon arrival, but denies any cough, chest pain, or shortness of breath. Denied nausea, vomiting, numbness, PEDERSON. Related Data Home Medications Medication Instructions Recorded Confirmed gabapentin 400 mg FEEDING TUBE BID 09/20/19 05/31/21 finasteride 5 mg FEEDING TUBE DAILY 05/07/21 05/31/21 amlodipine 10 mg FEEDING TUBE DAILY 05/31/21 05/31/21 cholecalciferol (vitamin D3) 125 mcg FEEDING TUBE DAILY 05/31/21 05/31/21 [Vitamin D3] ferrous sulfate 330 mg FEEDING TUBE HS 05/31/21 05/31/21 Allergies Allergy/AdvReac Type Severity Reaction Status Date / Time atropine Allergy Unknown Unknown Verified 05/07/21 18:52 codeine Allergy Unknown Unknown Verified 05/07/21 18:52 lorazepam AdvReac Severe GETS Verified 05/07/21 18:52 RESTLESS AND COMBATIVE propoxyphene AdvReac Severe Nausea and Verified 05/07/21 18:52 Vomiting quetiapine [From Seroquel] AdvReac Severe other Verified 05/31/21 15:30 trazodone AdvReac Severe Other Verified 05/31/21 15:30 alprazolam AdvReac Unknown anxiety Verified 05/07/21 18:52 Review of Systems Review of Systems: CONSTITUTIONAL: Denies fever, chills, or sweats. CARDIOVASCULAR: Denies chest pain. RESPIRATORY: Denies cough or dyspnea. GASTROINTESTINAL: Denies abdominal pain, nausea, vomiting, or diarrhea. NEUROLOGIC: Denies headache, numbness, or weakness. PSYCHIATRIC: Reports anxiety. Denies depression. 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 He does not use any alcohol drug
--- NOTE | 2021-06-13 09:21 | ECG_ITS ---
Measurements Intervals [place] Rate: 73 P: 1 HI: 199 QRS: -24 QRSD: 111 T: -9 QT: 394 QTc: 436 Interpretive Statements SINUS RHYTHM BORDERLINE LEFT AXIS DEVIATION [QRS AXIS < -20] CANNOT RULE OUT INFERIOR INFARCT, AGE INDETERMINATE BORDERLINE ECG COMPARED TO ECG 05/31/2021 10:42:14 CRITERIA FOR LVH AND A LONGER APPRECIATED FIRST-DEGREE AV BLOCK NOT APPRECIATED Electronically Signed On 06-13-2021 14:12:11 FLIGHT DATA TECHNICIAN by Rod Burch M.D.
[2021-06-13] MEDS: diazePAM INJ (*CRX) 10 MG/2 ML SYRINGE 5 MG IV PUSH (09:42)
[2021-06-13 09:55] LABS: Basophils Absolute Auto 0.1 K/mm3 (0.0-0.1); Basophils Percent Auto 0.8 % (0.2-1.2); Eosinophils Absolute Auto 0.3 K/mm3 (0-0.3); Eosinophils Percent Auto 4.2 % (0-4.4); Hematocrit 42.3 % (42.0-52.0); Hemoglobin 13.1 g/dL (14.0-18.0); Immature Granulocyte Absolute 0.06 K/mm3 (0.00-0.031); Immature Granulocyte Percent A 0.8 % (0-0.5); Lymphocytes Absolute Auto 1.06 K/mm3 (0.9-3.2); Lymphocytes Percent Auto 14.8 % (18.3-44.2); Mean Corpuscular Hemoglobin 30.5 pg (26-34); Mean Corpuscular Volume 98.6 fl (80-100); Mean Platelet Volume 9.6 fl (7.4-10.4); Monocytes Absolute Auto 0.7 K/mm3 (0.1-0.6); Monocytes Percent Auto 9.8 % (2.6-8.5); Neutrophils Percent Auto 69.6 % (45.5-73.1); Platelet Count Result 206 k/mm3 (150-375); Red Blood Count 4.29 M/mm3 (4.6-6.20); Red Cell Distribution Width 16.2 % (11.5-14.5); White Blood Count 7.2 K/mm3 (4.5-10.0)
[2021-06-13 10:07] LABS: Alanine Aminotransferase 12 U/L (4-50); Albumin Level 4.3 g/dL (3.5-5.1); Alkaline Phosphatase 126 U/L (38-126); Anion Gap 11 mmol/L (8-16); Aspartate Amino Transferase 24 U/L (17-59); Bilirubin,Total 0.7 mg/dL (0.2-1.3); Blood Urea Nitrogen 41 mg/dL (9-20); Calcium 9.6 mg/dL (8.4-10.2); Carbon Dioxide 25 mmol/L (22-30); Chloride 103 mmol/L (98-107); Estimated CRCL calculation 48 ml/min; Estimated Glomerular Filt Rate 54; Glucose 99 mg/dL (65-110); Sodium 139 mmol/L (137-145)
[2021-06-13 10:12] VITALS: O2SAT 97
[2021-06-13 11:01] VITALS: BP 124/72; PULSE 62; RESP 14; O2SAT 100
[2021-06-13 11:04] LABS: Add Urine Microscopic? YES; Appearance Urine Clear (Clear); Bilirubin Urine Negative (Negative); Blood Urine Negative (Negative); Color Urine Yellow (Yellow); Glucose Urine UA Negative (Negative); Ketones Urine Negative (Negative); Leukocyte Esterase Ur Negative LEU/UL (Negative); Nitrate Urine Negative (Negative); Protein Urine Negative (Negative); RBC Urine 0-2 /hpf (0-2); Specific Grav Ur 1.008 (1.001-1.035); Urobilinogen Urine Negative mg/dL (<2.0)
[2021-06-13 12:05] VITALS: BP 123/69; PULSE 76; RESP 18; O2SAT 100
[2021-06-13 13:36] VITALS: BP 126/72; PULSE 68; RESP 24; O2SAT 100
--- NOTE | 2021-07-29 09:56 | PC.NURSE ---
LATE ENTRY This note is being entered to document information to the patient's record. The following information was omitted on [06/13/21], by [Nasima Mayer]. Verbal order read back for straight cath for ua collection. per Sharon Venegas/Nasima Mayer PA-C
== END 2021-06-13 13:52 ==
PROVIDERS: Physician Assistant; Emergency Provider Emergency Medicine; PCP Physician Assistant
DX: F41.9 Anxiety disorder, unspecified (principal); R41.0 Disorientation, unspecified; C18.9 Malignant neoplasm of colon, unspecified; C78.7 Secondary malignant neoplasm of liver and intrahepatic bile duct; C78.6 Secondary malignant neoplasm of retroperitoneum and peritoneum; G20 Parkinson's disease; I10 Essential (primary) hypertension; E78.2 Mixed hyperlipidemia; N40.1 Benign prostatic hyperplasia with lower urinary tract symptoms; G47.33 Obstructive sleep apnea (adult) (pediatric); E03.9 Hypothyroidism, unspecified; Z87.01 Personal history of pneumonia (recurrent); Z87.440 Personal history of urinary (tract) infections; Z93.1 Gastrostomy status; Z90.49 Acquired absence of other specified parts of digestive tract; R94.31 Abnormal electrocardiogram [ECG] [EKG]; I44.0 Atrioventricular block, first degree
CPT/HCPCS: 36415; 51701; 80053; 81001; 85025; 93005; 96374; 99284; J3360

== ENCOUNTER 2021-06-13 14:23 | Emergency (ER) | payer MEDICARE, SELFPAY ==
[2021-06-13 14:24] VITALS: BP 145/81; PULSE 84; RESP 20; TEMP 36.7; O2SAT 98
--- NOTE | 2021-06-13 14:59 | PC.NURSE ---
pt was seen earlier today for panic attack that was controlled with medication. prior to discharge, pt was alert and oriented asking when he could go home. while taking pt to car he began feeling nervous again. was going to vegetable picker prescription and give another medication. after making it to pharmacy, states pt had another panic attack. pt arrived back to er repeating words and avoiding eye contact. pt is able to be reoriented momentarily but then returns to looking away repeating single words. is at bedside.
[2021-06-13] MEDS: CARBIDOPA/LEVODOPA 25/100 MG TABLET 2 TABLET FEED TUBE (15:11)
[2021-06-13] MEDS: GABAPENTIN 400 MG CAPSULE FEED TUBE (15:12)
[2021-06-13 15:25] LABS: Ethanol < 10 mg/dL (<10)
--- NOTE | 2021-06-13 15:27 | ED.GENADULT ---
HPI - General Adult General Chief complaint: Anxiety Stated complaint: anxiety Time Seen by Provider: 06/13/21 14:29 History of Present Illness HPI narrative: Patient is a 75-year-old male who presents ER with anxiety. Patient has history of Parkinson's disease. He is recently been in rehabilitation and has been informed that he will be discharged this weekend. After this discussion became very anxious. He was in the ER earlier he was treated with some Valium and had an unremarkable work-up. He was feeling better upon discharge. He then began to feel little nervous when he was getting into his car. He then got back to the long-term where they start discussing his possible discharge this weekend and he became very anxious again. He is not taking any additional psychiatric medication. He reports he is nervous she is going to fail when he goes home. Otherwise he will not see anything else other than help me help me. He is not particularly cooperative in history taking though he can follow commands and can answer orientation questions. Patient has not had any of his home medications outside of a blood pressure medication this morning. He also received hydroxyzine this morning to try to help with some anxiety. Related Data Home Medications Medication Instructions Recorded Confirmed gabapentin 400 mg FEEDING TUBE BID 09/20/19 06/13/21 finasteride 5 mg FEEDING TUBE DAILY 05/07/21 06/13/21 amlodipine 10 mg FEEDING TUBE DAILY 05/31/21 06/13/21 cholecalciferol (vitamin D3) 125 mcg FEEDING TUBE DAILY 05/31/21 06/13/21 [Vitamin D3] ferrous sulfate 330 mg FEEDING TUBE HS 05/31/21 06/13/21 diphenoxylate-atropine 1 tablet PO TID PRN 06/13/21 06/13/21 hydroxyzine HCl 10 mg PO TID PRN 06/13/21 06/13/21 Allergies Allergy/AdvReac Type Severity Reaction Status Date / Time atropine Allergy Unknown Unknown Verified 06/13/21 17:48 codeine Allergy Unknown Unknown Verified 06/13/21 17:48 lorazepam AdvReac Severe GETS Verified 06/13/21 17:48 RESTLESS AND COMBATIVE propoxyphene AdvReac Severe Nausea and Verified 06/13/21 17:48 Vomiting quetiapine [From Seroquel] AdvReac Severe other Verified 06/13/21 17:48 trazodone AdvReac Severe Other Verified 06/13/21 17:48 alprazolam AdvReac Unknown anxiety Verified 06/13/21 17:48 Review of Systems Review of Systems: ROS unobtainable: Yes unobtainable due to medical condition (Anxiety) Psychiatric: Psychiatric: Reports anxiety and Denies depression [facility] Past Medical History Medical History 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 Enlarged prostate with lower urinary tract symptoms (LUTS) Essential (primary) hypertension History of BPH History of colon cancer History of gastrostomy tube placement History of hypertension History of hypothyroidism Hypothyroid Mixed hyperlipidemia Obstructive sleep apnea (adult) (pediatric) Omental metastasis Other abnormal glucose Port-A-Cath in place 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 He does not use any alcohol drugs or m
[2021-06-13 15:35] LABS: Amphetamine Screen Urine Negative (Negative); Barbiturate Screen Urine Negative (Negative); Benzodiazepines Screen Urine Negative (Negative); Cannabinoid Screen Urine Negative (Negative); Cocaine Screen Urine Negative (Negative); Methadone Screen Urine Negative (Negative); Opiate Screen Urine Negative (Negative); Phencyclidine Screen Urine Negative (Negative)
[2021-06-13 17:22] LABS: SARS-CoV-2 RNA PCR Negative
[2021-06-13 17:43] VITALS: BP 132/75; PULSE 78; RESP 18; O2SAT 100
--- NOTE | 2021-06-13 17:47 | PC.NURSE ---
pt attempting to get out of bed. states he is going to if he stays in bed bed alarm on.
--- NOTE | 2021-06-13 19:02 | PCCCNOTE ---
Addendum entered by Nadine Cedeno RN 06/13/21 19:27: Provided spouse and patient with resources for counselors, spouse Josiane has been in contact with [facility] that he will be coming back tonight. Spouse states that she will drive him over. Updated bedside ROSSANA Salinas and Dr. Bear that counseling resources have been provided. Bedside RN Rita, will call to [facility]. Original Note: Called by ED Physician, to evaluate patient for [facility] psych. At bedside with patient he is oriented x3. He states that he has a history of depression. Spouse is not at bedside at she his getting his tube feedings. Called to spouse at [phone], Spouse Josiane states that she will be up shortly. Discussed with spouse and patient about anxiety, asked about upcoming discharge from [facility] on Thursday as was a trigger for panic attack earlier in the day. Patient calmly responds that he will leave and will go home by car and will go up the steps into his home, and most likely will need a tube feeding. Patient does not appear anxious or behaviors demonstrated earlier like repeating himself. Asked Josiane about discharge plan, does not feel that he needs [facility] psychiatry, plan will be to back to [facility] and if he is anxious they will call their doctor to manage. She states he has been doing well melatonin the last two nights before today. has been in contact with [facility] and they will accept back. Spouse Josiane has been in contact with PCP office they are to call on Thursday after dc from SNF and they will get him him in for an appt and to follow him for medical follow up and any anxiety. Encouraged to discuss referral for therapy/counseling that can help with anxiety and not medications as states that he has had problems with valium or ativan. Updated Dr. Bear, ED Physician.
--- NOTE | 2021-06-13 19:21 | PC.NURSE ---
assuming care of pt.
[2021-06-13 19:26] VITALS: BP 135/76; PULSE 92; RESP 18; O2SAT 99
--- NOTE | 2021-06-13 19:31 | PC.NURSE ---
Rn spoke with and gave report to Shea Partida at [facility].
== END 2021-06-13 19:41 ==
PROVIDERS: Emergency Provider Emergency Medicine; PCP Physician Assistant
DX: F41.9 Anxiety disorder, unspecified (principal); Z20.822 Contact with and (suspected) exposure to COVID-19; C18.9 Malignant neoplasm of colon, unspecified; C78.7 Secondary malignant neoplasm of liver and intrahepatic bile duct; C78.6 Secondary malignant neoplasm of retroperitoneum and peritoneum; G20 Parkinson's disease; I10 Essential (primary) hypertension; E78.2 Mixed hyperlipidemia; N40.1 Benign prostatic hyperplasia with lower urinary tract symptoms; E03.9 Hypothyroidism, unspecified; Z87.01 Personal history of pneumonia (recurrent); Z87.440 Personal history of urinary (tract) infections; G47.33 Obstructive sleep apnea (adult) (pediatric); Z90.49 Acquired absence of other specified parts of digestive tract; Z93.1 Gastrostomy status; Z79.899 Other long term (current) drug therapy
CPT/HCPCS: 36415; 51701; 80053; 80307; 81001; 84443; 85025; 93005; 96374; 99283; 99284; A9270; C9803; J3360; U0003; U0005

== ENCOUNTER 2021-07-03 13:36 | Outpatient (CLI) | payer MEDICARE, SELFPAY ==
--- NOTE | ~2021-07-03 | XR_ITS ---
EXAMINATION: XR barium swallow modified DATE: 07/03/2021 14:44 INDICATION: Dysphagia. TECHNIQUE: The patient was given barium-containing material of multiple consistencies to swallow by t darya speech pathologist while I performed fluoroscopy. Dose-area product was 2.781 Gy-cm2. 3.4 minutes fluoroscopy time FINDINGS: Oral Stage: Prolonged mastication with solids Pharyngeal Phase: Reduced laryngeal elevation Laryngeal penetration Cervical/Esophageal Stage: Within functional limits IMPRESSION: Modified esophagram findings as above. Please refer to the speech therapy report [facility]. Reviewed, dictated and finalized at [facility]. Reviewed, dictated and finalized at [facility]. IMPRESSION: Modified esophagram findings as above. Please refer to the speech t herapy report for specific recommendations.
--- NOTE | 2021-07-04 10:49 | STOPEVAL ---
MODIFIED BARIUM SWALLOW EVALUATION: Thank you for referring Eagle Mendez to [facility].? Attending Provider: Ramakrishna Brown, DO Modified Barium Swallow Evaluation Recent Swallowing History Reports Dysphagia Yes: previous OP MBS 05/06/21; has HH speech therapy Duration of Dysphagia 9 months History of Pneumonia No Reported Difficult Consistencies Thin Liquids Intake Method Prior to Swallow Gastrostomy,NPO Evaluation Dentition Comments missing teeth Consistency Solid Consistency Other Amount tested crumbled as well as small pieces Oral Preparatory Phase Comments slow and prolonged mastication but leakage and/or pocketing were not observed; risk for increased premature spillage and loss of bolus control. Pharyngeal Phase Symptoms Laryngeal Penetration,Reduced Laryngeal Elevation Severity of Vallecular Residue None - 0% No Residue 8 Point Laryngeal Penetration-Aspiration Material Does Not Enter Airway Scale Pharyngeal Phase Comments intermittent trace laryngeal penetration occurred; pt cleared contents with verbal cue to cough and dry swallow Cervical/Esophageal Symptoms None Pureed Consistency Method of Presentation Spoon Oral Preparatory Symptoms None Oral Phase Symptoms None Pharyngeal Phase Symptoms Within Functional Limits Severity of Vallecular Residue None - 0% No Residue Severity of Pyriform Sinus Residue None - 0% No Residue 8 Point Laryngeal Penetration-Aspiration Material Does Not Enter Airway Scale Cervical/Esophageal Symptoms None Thin Uncontrolled 2 Method of Presentation Straw Oral Preparatory Symptoms None Oral Phase Symptoms None Pharyngeal Phase Symptoms Laryngeal Penetration,Reduced Laryngeal Elevation Severity of Vallecular Residue None - 0% No Residue Severity of Pyriform Sinus Residue None - 0% No Residue Pharyngeal Phase Comments intermittent mild amount of laryngeal penetration occurred ; pt cleared contents with verbal cue to cough and dry swallow Cervical/Esophageal Symptoms None Thin Uncontrolled 1 Method of Presentation Cup Oral Preparatory Symptoms None Oral Phase Symptoms None Pharyngeal Phase Symptoms Laryngeal Penetration,Reduced Laryngeal Elevation Severity of Vallecular Residue None - 0% No Residue Severity of Pyriform Sinus Residue None -
== END 2021-07-03 13:37 | disposition home or self-care (01) ==
PROVIDERS: PCP Physician Assistant; Visit Provider Internal Medicine Medical Oncology
DX: R13.10 Dysphagia, unspecified (principal)
CPT/HCPCS: 92611

== ENCOUNTER 2021-08-15 14:29 | Outpatient (CLI) | payer MEDICARE, SELFPAY ==
--- NOTE | ~2021-08-15 | CT_ITS ---
EXAMINATION: CT chest abdomen pelvis wo con DATE: 08/15/2021 15:03 INDICATION: Malignant neoplasm of the colon TECHNIQUE: Transaxial computed tomographic images of the chest, abdomen, and pelvis were obtained wit hout intravenous contrast. The dose-length product (DLP) was 1392.51 mGy-cm. Automated exposure contr ol and iterative reconstruction technique were employed. COMPARISON: 05/07/2021 FINDINGS: CHEST CT: A right internal jugular Port-A-Cath ends with its tip in the proximal superior vena cava. There is m ild dependent atelectasis. There is no pleural effusion or pneumothorax. No pathologically enlarged t horacic lymph nodes are identified. The heart size is normal. Bilateral gynecomastia is noted. There is moderate thoracic spondylosis. ABDOMEN/PELVIS CT: There are changes of partial right hemicolectomy. There are innumerable stones in the gallbladder whi ch remains chronically distended. Multiple masses are again seen along the liver surface which have s lightly increased in size. For instance a 4.9 cm mass along the right hepatic lobe previously measure d 3.8 cm. There are multiple soft tissue masses adjacent to the ascending colon which demonstrate int erval increase in size. A gastrostomy is in expected position. There are stable masses involving the anterior abdominal wall in the right rectus abdominis muscle and in the midline incision scar. There is circumferential wall thickening of the urinary bladder. A surgical anastomosis is noted in the rec nemesio. There is a 5.4 cm cyst of the left kidney. The right kidney is unremarkable. The spleen, pancrea s, and adrenal glands are normal. There is severe lumbar spondylosis. IMPRESSION: 1. Interval increase in size of peritoneal carcinomatosis near the liver surface and soft tissue mass es adjacent to the ascending colon, consistent with worsening metastatic disease. 2. Stable masses of the anterior abdominal wall, consistent with metastatic disease. 3. Cholelithiasis with persistent distention of the gallbladder. 4. No acute findings in the chest or evidence of thoracic metastatic disease. Reviewed, dictated and finalized at location A. IMPRESSION: 1. Interval increase in size of peritoneal carcinomatosis near the liver surfac e and soft tissue masses adjacent to the ascending colon, consistent with worse iveth metastatic disease. 2. Stable masses of the anterior abdominal wall, consistent with metastatic dis ease. 3. Cholelithiasis with persistent distention of the gallbladder. 4. No acute findings in the chest or evidence of thoracic metastatic disease.
== END 2021-08-15 14:30 | disposition home or self-care (01) ==
PROVIDERS: PCP Physician Assistant; Visit Provider Internal Medicine Medical Oncology
DX: C18.8 Malignant neoplasm of overlapping sites of colon (principal); C78.6 Secondary malignant neoplasm of retroperitoneum and peritoneum; K80.20 Calculus of gallbladder without cholecystitis without obstruction
CPT/HCPCS: 71250; 74176; 92523; 92610

== ENCOUNTER 2021-11-13 11:00 | Outpatient (RCR) | payer MEDICARE, SELFPAY ==
--- NOTE | 2021-08-15 16:06 | STOPEVAL ---
SPEECH THERAPY EVALUATION FOR SWALLOWING AND VOCAL LOUDNESS/SPEECH Thank you for referring Eagle Mendez to [facility].? The patient is scheduled to be seen for therapy? 2x/week for 4 weeks. Please review, sign, date and return this plan of care KRYSTIN. I agree with and certify that the following plan of care is medically necessary. Referring Physician Date Admitting Provider: Attending Provider: Geovanny Moreau, , PA Referring Provider: Therapy Assessment Status Assessment Status Assessment Status Evaluation Outpatient Past Medical History Neurological History Hx Parkinson's Disease Yes: Diagnosed in -06/25 Cardiovascular History Hx Hypercholesterolemia Yes Hx Hypertension Yes Respiratory History Hx Pneumonia Yes Gastrointestinal History Hx Colorectal Cancer Yes Hx Gastroesophageal Reflux Disease Yes Hx Gastrointestinal Bleed Yes Hx Other Gastrointestinal Disorders Yes: PEG tube Jan 2021 r/t dysphagia; recent MBS Genitourinary History Hx Urinary Tract Infection Yes Hx Other Genitourinary Disorders Yes: bleeding issues Musculoskeletal History Hx Arthritis Yes Hx Fractures Yes: ribs Hx Other Musculoskeletal Disorders Yes: r ankle 2 tendon tare and twisted left ankle Hematological History Hx Anemia Yes Hx Other Hematological Disorders Yes: iron anemia Endocrine History Hx Hypothyroidism Yes HEENT History Hx Other HEENT Disorders Yes: swallowing impairment Integumentary History Hx Skin Disorders No Significant History Reproductive History Hx Reproductive Disorders No Significant History Psychosocial History Hx Anxiety Yes Pain History History of Any Previous or Ongoing No Significant History Instance of Pain Anesthesia History Hx Anesthesia Reactions No Significant History Other History Hx Cancer Yes: colorectal CA omar to lymph node in abdomen Hx Chemotherapy Yes: pills, last taken Feb 2021 Evaluation Information Problem Diagnosis Dysphagia Onset 02/24 Subjective Information The reports that the Query Text:As Reported By Patient/ patient had a bleeding issue Family that caused him to be hospitalized at [facility]. Patient had been coughing during a test and then during a meal which required a Modified Barium Swallow which revealed patient was aspirating during meals.
--- NOTE | 2021-08-19 15:41 | PTOPEVAL ---
PHYSICAL THERAPY EVALUATION AND PLAN OF CARE Thank you for referring Eagle Mendez to [facility].? The patient is scheduled to be seen for therapy? 2X/week for 4 weeks. Please review, sign, date and return this plan of care KRYSTIN. I agree with and certify that the following plan of care is medically necessary. Referring Physician Date Attending Provider: Geovanny Moreau, , PA Outpatient Past Medical History Neurological History Hx Parkinson's Disease Yes: Diagnosed in -06/25 Cardiovascular History Hx Hypercholesterolemia Yes Hx Hypertension Yes Respiratory History Hx Pneumonia Yes Gastrointestinal History Hx Colorectal Cancer Yes Hx Gastroesophageal Reflux Disease Yes Hx Gastrointestinal Bleed Yes Hx Other Gastrointestinal Disorders Yes: PEG tube Jan 2021 r/t dysphagia; recent MBS Genitourinary History Hx Urinary Tract Infection Yes Hx Other Genitourinary Disorders Yes: bleeding issues Musculoskeletal History Hx Arthritis Yes Hx Fractures Yes: ribs Hx Other Musculoskeletal Disorders Yes: r ankle 2 tendon tare and twisted left ankle Hematological History Hx Anemia Yes Hx Other Hematological Disorders Yes: iron anemia Endocrine History Hx Hypothyroidism Yes HEENT History Hx Other HEENT Disorders Yes: swallowing impairment Other History Hx Cancer Yes: colorectal CA omar to lymph node in abdomen Hx Chemotherapy Yes: pills, last taken Feb 2021 Evaluation Information Problem Diagnosis decreased mobility Onset chronic Subjective Information Eagle is here for evaluation Query Text:As Reported By Patient/ for decreased mobility. He was Family recently diagnosed with Parkinson's disease but this was diagnosed after a couple of infections and illness and hospitalization so it could be that he has decreased function secondary to bedrest. He has been walking with a walker for several years due to balance and feeling weak in the legs. 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 Was in acute rehab stay both in 05/2021 and 06/2021. He worked on steps, walking with a walker. After
--- NOTE | 2021-09-05 16:29 | STOPEVAL ---
Thank you for referring Eagle Mendez [place] [facility] [place] [facility] [place] I understand patient has achieved his goals and is being discharged from Speech Therapy services. Referring Physician Date Attending Provider: Geovanny Moreau, EDDIE Gavin Therapy Assessment Status Assessment Status Assessment Status Discharge Pain Assessment Timing of Pain Assessment Timing of Pain Assessment Pre-Treatment Self Report Self Report Pain Level 0 Pain Score Pain Score 0: Self Report ST Clinical Summary Clinical Summary ST Clinical Summary DISCHARGE SUMMARY This patient was seen for a Speech Therapy Evaluation and then six treatments to address swallowing skills and vocal loudness. Patient had received Speech Therapy through a previous facility/home health and patient had exhibited good improvement however patient's and patient continued to express concern about returning to his normal, pre- morbid diet and therefore continued Speech Therapy was recommended. Patient has successfully completed tasks during Speech Therapy sessions and completes exercises at home in between session. Today the patient consumed a [employer] bar with water wash as needed and exhibited both no signs of aspiration or distress, and good ability to alternate solids and liquids to avoid swallowing issues. Patient performed as follows on goals: 1. Complete laryngeal elevation exercises 10 reps or more with good strength and loudness in order to improve airway closure and prevent penetration and to decrease vallecular residue following the swallows. MET. 2. Complete laryngeal adduction exercises 10 reps or more with good strength and loudness in order to assist with the preve
--- NOTE | 2021-09-18 13:32 | PTOPEVAL ---
PHYSICAL THERAPY PROGRESS REPORT Thank you for referring Eagle Mendez to [facility].? The patient is scheduled to be seen for therapy? 2x/week for 4 weeks. Please review, sign, date and return this plan of care KRYSTIN. I agree with and certify that the following plan of care is medically necessary. Referring Physician Date Attending Provider: Geovanny Moreau, , PA Diagnosis decreased mobility Onset chronic Subjective Information Eagle reports that since Query Text:As Reported By Patient/ starting therapy he feels like Family he can walk better and has a little better balance. They state that he can stand longer in the bathroom and is doing the stairs in their split level home better. Spent an extensive time today discussing his feet going numb and we spent of lot of time discussing the need to increase time spent getting up and moving and doing leg lifts and ankle pumps to increase blood flow to prevent the feet going numb and to increase overall activity level. Lower Extremity Muscle Strength Testing General Lower Extremity Strength Gross Lower Extremity Strength grossly 4+/5 bilaterally; hip extension: 3+/5 Balance Assessment Michaud Balance Assessment: Comments 1month ago = 56 Time Up Go (TUG) Timed Up and Go Test (TUG) (Seconds) 22 Assistive Devices Walker, Wheeled Comments 1month ago = 24seconds 5 Time Sit to Stand Time in Seconds 17.37 5 Time Sit to Stand Comments 1month ago: 19.37 Query Text:Normative Data: If Greater Than 15 Seconds, 74% Increase Risk for Recurrent Falls Gait Assessment 2 Minute Walk Total Distance Walked (feet) 173 2 Minute Walk Gait Speed Score (feet/ 1.44 second) 2 Minute Walk Test Comments 1month ago = 150ft (1.25ft/second PT Clinical Summary Eagle is demonstrating improved balance, gait speed, and overall strength. he continues to demonstrate strength and balance deficits that require skilled physical therapy to continue progressing strength and functional independence.
--- NOTE | 2021-10-17 16:27 | PTOPEVAL ---
PHYSICAL THERAPY PROGRESS REPORT Thank you for referring Eagle Mendez to [facility].? The patient is scheduled to be seen for therapy? 1x/week for 4weeks. Please review, sign, date and return this plan of care KRYSTIN. I agree with and certify that the following plan of care is medically necessary. Referring Physician Date Attending Provider: Geovanny Moreau, , PA Diagnosis decreased mobility Onset chronic Subjective Information Eagle is moving more and Query Text:As Reported By Patient/ walker further and has better Family balance. States he is about half way to where he wants to be. States he has a goal to walk. Has been walking with a WW for several years. Self Report Pain Assessment Lower Back Reported Pain Level 5 Pain Description Aching,Tightness Pain Score Pain Score 5: Self Report Interventions Used Interventions Used By Clinicians Position Change Balance Assessment Kirkpatrick Balance Assessment Sitting to Standing Independent w/Hands Unsupported Stance Ability Supervision- 2 minutes Sitting Unsupported, Feet on Floor Safely- 2 minutes Standing to Sitting Safely, Minimal Hand Use Transfer Ability Safely, Minimal Hand Use Unsupported Stance- Eyes Closed 3 seconds Unsupported Stance- Feet Together Supervision to maintain Reaching Forward while Standing Supervision Needed supervisor corduroy cutting Object From Floor Requires Assistance Look Behind Shoulder - Standing Supervision w/Turning Turning 360 Degrees Requires Assistance Unsupported Stance, Alternating Feet on 2 Steps w/Minimum Assist Stair Unsupported Tandem Stance Assist to Step-15 seconds Unilateral Leg Stance Lifts Leg/Unable to Hold KIRKPATRICK Balance Evaluation Total Score (/56 28 points) Comments 1montha go = 21/56 2month ago = 20/56 Time Up Go (TUG) Timed Up and Go Test (TUG) (Seconds) 17 Assistive Devices Walker, Wheeled Comments 1month ago = 22seconds 2month ago = 24seconds 5 Time Sit to Stand Time in Seconds 13.35 5 Time Sit to Stand Comments 1month ago: 17.37 Query Text:Normative Data: If Greater 2month ago: 19.37 Than 15 Seconds, 74% Increase Risk for Recurrent Falls Gait Assessment Gait Assessment Ambulation Assistive Devices Walker, Wheeled Ambulation Distance 429 Query Text:(Feet) Ambulation Speed (feet/second) 1.4 Ambulation Ability Independent PT Clinical Summary Eagle is demonstrating significantly improved balance
--- NOTE | 2021-11-07 16:16 | PCPTNOTE ---
On 11/07/21, the student, Hossein Curry, provided care and completed [facility] documentation on this patient. I have reviewed the student's documentation and agree with the findings.
--- NOTE | 2021-11-13 12:00 | PTOPEVAL ---
PHYSICAL THERAPY DISCHARGE NOTE Thank you for referring Eagle Mendez to [facility].? Please review, sign, date and return this plan of care KRYSTIN. I agree with and certify that the following plan of care is medically necessary. Referring Physician Date Attending Provider: Geovanny MoreauJr., PA Diagnosis decreased mobility Onset chronic Subjective Information Eagle's states that he Query Text:As Reported By Patient/ took the longest walk he has Family in a long time at the doctor's office. Eagle reports that he feels like he has a hard time in the morning. Feels like he has a difficult time getting out of bed and has a hard time in the morning until he can get moving again. Balance Assessment Kirkpatrick Balance Assessment Sitting to Standing Independent w/Hands Unsupported Stance Ability Supervision- 2 minutes Sitting Unsupported, Feet on Floor Safely- 2 minutes Standing to Sitting Safely, Minimal Hand Use Transfer Ability Safely, Minimal Hand Use Unsupported Stance- Eyes Closed Supervision, 10 seconds Unsupported Stance- Feet Together Supervision to maintain Reaching Forward while Standing Safely, 2 inches technical support manager Object From Floor Requires Assistance Look Behind Shoulder - Standing Turns Sideways Only Turning 360 Degrees Requires Assistance Unsupported Stance, Alternating Feet on 2 Steps w/Minimum Assist Stair Unsupported Tandem Stance Assist to Step-15 seconds Unilateral Leg Stance Lifts Leg/Unable to Hold KIRKPATRICK Balance Evaluation Total Score (/56 31 points) Comments 1month ago = 28/56 2montha go = 21/56 3month ago = 20/56 Time Up Go (TUG) Timed Up and Go Test (TUG) (Seconds) 15 Assistive Devices Walker, Wheeled Comments 1month ago = 17seconds 2month ago = 22seconds 3month ago = 24seconds 5 Time Sit to Stand Time in Seconds 10 5 Time Sit to Stand Comments 1month ago: 13.35 Query Text:Normative Data: If Greater 2month ago: 17.37 Than 15 Seconds, 74% Increase Risk for 3month ago: 19.37 Recurrent Falls Gait Assessment Gait Assessment Ambulation Distance 244 Query Text:(Feet) Ambulation Speed (feet/second) 1.3 PT Clinical Summary Eagle is demonstrating significantly improved balance improving Kirkpatrick Balance score
== END 2021-11-13 23:59 | disposition home or self-care (01) ==
LOC: ANHPT 11:00
PROVIDERS: PCP Physician Assistant; Visit Provider Physician Assistant
DX: G20 Parkinson's disease (principal); R13.10 Dysphagia, unspecified
CPT/HCPCS: 92523; 92526; 92610; 97110; 97112; 97116; 97163; 97530

== ENCOUNTER 2021-12-18 10:24 | Outpatient (CLI) | payer MEDICARE, SELFPAY ==
--- NOTE | ~2021-12-18 | CT_ITS ---
EXAMINATION: CT chest abdomen pelvis wo con DATE: 12/18/2021 10:53 INDICATION: Metastatic colon cancer. TECHNIQUE: Computed tomography (CT) of the chest, abdomen, and pelvis was performed without intraveno us contrast. Automated exposure control and iterative reconstruction technique were employed. The dos e-length product was 1456.30 mGy-cm. COMPARISON: CT chest, abdomen, and pelvis 08/15/2021, CT abdomen and pelvis 05/07/21 FINDINGS: CHEST CT: There is chronic septal thickening in the lungs with an inferior predominance. There is mild bronchie ctasis in the inferior lungs. There is a small calcified pleural plaque on the left. No pleural effus ion. The heart size is normal. There are coronary artery calcifications. No pericardial effusion. The re is bilateral gynecomastia. There is a right internal jugular port with tip in superior vena cava. There are bridging endplate osteophytes at multiple levels in the spine, consistent with diffuse idio pathic skeletal hyperostosis (DISH). ABDOMEN/PELVIS CT: There are multiple masses in the liver. For example, a 2.2 cm mass in right hepatic lobe is stable. T here are gallstones in the gallbladder, which is normal in size. The spleen, pancreas, adrenal glands , and right kidney are normal. There is a 5.6 cm cyst in left kidney. There are no dilated loops of b owel. There are surgical changes of the bowel. There are multiple peritoneal masses including masses involving the anterior abdominal wall and umbilicus and liver surface. A 5.4 x 2.8 cm peritoneal mass previously measured 4.7 x 2.2 cm. A 6.3 x 3.8 cm mass in right rectus abdominis muscle previously me asured 6.4 x 3.7 cm. There is chronic diffuse bladder wall thickening which may be secondary to chron ic outlet obstruction from the mildly enlarged prostate. There is a left inguinal hernia containing f at. There are lumbar spondylosis. IMPRESSION: 1. Stable metastatic disease including liver masses and peritoneal carcinomatosis. Reviewed, dictated and finalized at location A. IMPRESSION: 1. Stable metastatic disease including liver masses and peritoneal carcinomatos is.
== END 2021-12-18 10:25 | disposition home or self-care (01) ==
PROVIDERS: PCP Physician Assistant; Visit Provider Internal Medicine Medical Oncology
DX: C18.8 Malignant neoplasm of overlapping sites of colon (principal); C78.6 Secondary malignant neoplasm of retroperitoneum and peritoneum
CPT/HCPCS: 71250; 74176

== ENCOUNTER 2022-02-11 09:12 | Outpatient (CLI) | payer MEDICARE, SELFPAY ==
--- NOTE | ~2022-02-11 | US_ITS ---
EXAMINATION: US biopsy abd retroperitoneal DATE: 02/11/2022 10:10 INDICATION: Overlapping malignant neoplasm of the colon. Peritoneal metastases. TECHNIQUE: The procedure including the risks and benefits was discussed with the patient. Risks discu ssed included bleeding and infection. The patient understood the risks and agreed to proceed. The sk in overlying the right para umbilical anterior abdominal wall was prepped and draped in usual sterile fashion. Anesthetic was administered with 1% lidocaine subcutaneously. An 18 gauge core biopsy nee dle was advanced under continuous ultrasound observation to the lesion of interest. 5 core biopsy sp ecimens were obtained. The needle was removed and the entry site was cleaned and dressed. Post proc edure ultrasound demonstrated no hemorrhage. FINDINGS: Ultrasound images demonstrate a 4.8 x 4.1 x 3.4 cm hypoechoic mass with irregular lobular m argins in the right anterior abdominal wall musculature. Subsequent images demonstrate biopsy needle advanced into the mass. IMPRESSION: 1. Successful Ultrasound-guided biopsy of a 4.8 cm mass in the paraumbilical right anterior abdominal wall which concerning for metastatic disease. Reviewed, dictated and finalized at location A. 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 Successful Ultrasound-guided biopsy of a 4.8 cm mass in the paraumbilical ri ght anterior abdominal wall which concerning for metastatic disease.
== END 2022-02-11 09:13 | disposition home or self-care (01) ==
LOC: ANHIMG 09:15
PROVIDERS: PCP Physician Assistant; Visit Provider Internal Medicine Medical Oncology
DX: C18.8 Malignant neoplasm of overlapping sites of colon (principal); C78.6 Secondary malignant neoplasm of retroperitoneum and peritoneum
CPT/HCPCS: 49180; 76942; 88305

== ENCOUNTER 2022-05-13 12:30 | Outpatient (RCR) | payer MEDICARE, SELFPAY ==
--- NOTE | 2022-02-20 10:06 | PTOPEVAL1 ---
Assessment and note entered by Clemencia Quintero, PT Evaluation Information Diagnosis weakness Onset December 2021 Subjective Information gradual increase in weakness; no falls; have L foot toe nail issues--developed small pressure area; use wheeled walker; have problems with steps in home, 13 steps with B hand rails; have redone bathroom and walk in shower with seat and hand held shower; have problems with back pain and L leg pain and weakness; have been doing leg exercises- lying down, sitting and standing; when sitting in his recliner, tend to lean to the L side; sits up to 5-6 hours at a time in recliner; Discussed with pt to continue his current HEP and get up/walk every hour during day Reported Pain Level Pain Score Self Report Additional Pain Score Comments pain range of 6-7/10; low back pain and L hip and leg pain; take over the counter meds PRN Assessment PT Clinical Summary Mamadou has the diagnosis of weakness. He reports decreased walking ability and balance, with issues putting on coat and pants. And stairs are hard for him to do. He has not had any falls; his Anuradha is supportive and assists pt PRN. His history includes LBP, L hip pain, colon cancer with mets, is on chemo pills and to start radiation next week for 10 treatments. With the evaluation he has decreased strength of L LE with trace ankle DF motion; neuropathy of both feet and hands; 5 reps sit/stand time is 16 seconds; TUG is 21 sec with wheeled walker; Tinetti balance/gait score is 12/28= high fall risk; 2 minute walking distance is 150'; he has poor standing and walking posture; static standing without UE support is 32 seconds and eyes closed 8 seconds; Skilled PT services are indicated for therapeutic exercises and activities to increase LE strength, gait and balance skills, with education for safety with sit/stand transfer and progression of his home exercises. Plan of Care Interventions Gait Training,Manual Therapy,Neuro Re-education, Patient/Caregiver Education,Therapeutic Activities, Therapeutic Exercise PT Services Indicated Yes Treatment Frequency and 2x/wk for 5 weeks Duration
--- NOTE | 2022-03-07 10:00 | PCPTNOTE ---
Patient called & cancelled scheduled appointment this date due to being sick.
--- NOTE | 2022-03-14 11:26 | PCPTNOTE ---
Patient called & cancelled scheduled appointment this date due to illness.
--- NOTE | 2022-03-27 11:44 | PCPTNOTE ---
pt called and canceled today's reeval due to bad weather.
--- NOTE | 2022-04-03 13:18 | PTOPPROG ---
Assessment and note entered by Lissy Cruz DPT Evaluation Information Assessment Status Progress Diagnosis weakness Onset December 2021 Subjective Information Pt reports feeling good with therapy, can do more activities at home that he hasn't done in awhile. Was able to help make the bed the other day and helped with cooking and cleaning. Uses his walker all the time, no falls but reports he does lose his balance at times. Continues to report back pain, 5/10 highest and lowest 7-8/10. Worst in the morning than other times. Pt reports he thinks he will benefit from more therapy to address his ability to walk farther, improve balance, and overall mobility. Assessment PT Clinical Summary The patient has made good progress in therapy. He reports improved participation in household activities like cooking and cleaning. He demonstrates improved strength, balance (TUG, Tinetti, and 5 time sit to stand), and ambulation speed. He reports no falls since starting therapy. Due to his progress but continued pain and impairments, he will benefit from further therapy to improve safety with ADL's. Plan of Care Interventions Gait Training,Hot Pack/Cold Pack,Manual Therapy, Neuro Re-education,Patient/Caregiver Education, Therapeutic Activities,Therapeutic Exercise,Self- Care/Home Management PT Services Indicated Yes Treatment Frequency and 2 times a week for 6 weeks Duration These treatments will address the objective and functional deficits as defined above. The patient will be advanced safely and appropriately in order for the patient to progress towards his/her prior level of function. Additional exercises will be introduced and as well as a comprehensive home exercise program upon discharge, if needed, ?to ensure carryover of functional gains achieved in the clinic. This treatment plan has been reviewed and agreement upon by the patient.
--- NOTE | 2022-05-06 11:54 | PCPTNOTE ---
Patient called & cancelled scheduled appointment this date due to being sick.
--- NOTE | 2022-05-16 15:13 | PCPTNOTE ---
pt called and canceled today's reeval appt;
--- NOTE | 2022-06-27 15:14 | PCPTNOTE ---
PHYSICAL THERAPY DISCHARGE 06-27-22 Attending Provider: Geovanny Moreau Jr., PA Patient:Eagle Mendez Date of :1945 Mr. Mendez has not returned for any further treatments since 05/13/2022, therefore he will be discharged at this time. He has received 17 PT sessions, from February 20, 2022 to May 13, 2022 for the diagnosis of weakness. The goals were not assessed. Thank you for referring Mamadou to [facility].
== END 2022-05-21 23:59 | disposition home or self-care (01) ==
LOC: ANHPT 12:30
PROVIDERS: PCP Physician Assistant; Visit Provider Physician Assistant
DX: R53.1 Weakness (principal)
CPT/HCPCS: 97110; 97112; 97162; 97530

== ENCOUNTER 2022-05-15 23:51 | Emergency (ER) | payer MEDICARE, SELFPAY ==
--- NOTE | ~2022-05-15 | XR_ITS ---
Portable chest x-ray Comparison: 06/02/2021 Clinical History: Altered mental status Findings: Right-sided Mediport is unchanged. Lungs are clear, without focal consolidation or pleural effusion. Cardiomediastinal silhouette is stable. Bones and soft tissues are unremarkable. Impression: Clear lungs. Right-sided Mediport. Reviewed, dictated and finalized at location . PATIAL TECHNOLOGIST Impression: Clear lungs. Right-sided Mediport.
[2022-05-15 23:49] VITALS: BP 120/90; PULSE 95; RESP 19; TEMP 37.3; O2SAT 98
[2022-05-16] VITALS (27 sets, daily range): BP systolic 117–141; BP diastolic 72–88; PULSE 67–101; RESP 12–29; TEMP 37.1; O2SAT 95
--- NOTE | 2022-05-16 00:39 | ED.AMS ---
HPI - Altered Mental Status General Chief Complaint: Altered Mental Status Stated Complaint: weakness Time Seen by Provider: 05/16/22 00:02 History of Present Illness HPI narrative: This is a 76-year-old male with past medical history of colon cancer on home chemotherapy, recently diagnosed with UTI, presenting to the emergency department with confusion and elevated temperatures at home. The patient's spouse says 3 days ago, he was diagnosed with a UTI and started on Keflex. Today, patient initially appeared to be his normal self, but gradually throughout the day became progressively confused and delayed in response. He complains of chronic bilateral heel pain and back pain without any new symptoms. She denies vomiting, cough, shortness of breath or bleeding from any source. Related Data Home Medications Medication Instructions Recorded Confirmed gabapentin 400 mg capsule 400 mg feeding tube BID 09/20/19 06/13/21 cholecalciferol (vitamin D3) 125 125 mcg feeding tube DAILY 05/31/21 06/13/21 mcg (5,000 unit) tablet (Vitamin D3) ferrous sulfate 220 mg (44 mg 330 mg feeding tube HS 05/31/21 06/13/21 iron)/5 mL oral elixir diphenoxylate-atropine 2.5 1 tablet PO TID PRN Diarrhea 06/13/21 06/13/21 mg-0.025 mg tablet hydroxyzine HCl 10 mg tablet 10 mg PO TID PRN Anxiety 06/13/21 06/13/21 capecitabine 500 mg tablet (Xeloda) 2,000 mg PO BID 09/10/21 loperamide 2 mg capsule 2 mg PO Q6H PRN 09/10/21 tamsulosin 0.4 mg capsule 0.4 mg PO DAILY 09/10/21 Allergies Allergy/AdvReac Type Severity Reaction Status Date / Time atropine Allergy Unknown Unknown Verified 05/16/22 00:22 codeine Allergy Unknown Unknown Verified 05/16/22 00:22 lorazepam AdvReac Severe GETS Verified 05/16/22 00:22 RESTLESS AND COMBATIVE propoxyphene AdvReac Severe Nausea and Verified 05/16/22 00:22 Vomiting quetiapine [From Seroquel] AdvReac Severe other Verified 05/16/22 00:22 trazodone AdvReac Severe Other Verified 05/16/22 00:22 alprazolam AdvReac Unknown anxiety Verified 05/16/22 00:22 Review of Systems Review of Systems: CONSTITUTIONAL: Fevers, chills denies sweats. EYES: Denies visual changes, redness, or discharge. ENT: Denies rhinorrhea, congestion, sore throat, or otalgia. CARDIOVASCULAR: Denies chest pain, palpitations, or edema. RESPIRATORY: Denies cough or dyspnea. GASTROINTESTINAL: Denies abdominal pain, nausea, vomiting, or diarrhea. GENITOURINARY: Dysuria denies hematuria. SKIN: Denies rash or itching. MUSCULOSKELETAL: Chronic back pain denies joint pain, or myalgia. NEUROLOGIC: Denies headache, numbness, dizziness, or weakness. PSYCHIATRIC: Denies anxiety or depression. 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
[2022-05-16 01:32] LABS: Basophils Absolute Auto 0.1 K/mm3 (0.0-0.1); Basophils Percent Auto 0.8 % (0.2-1.2); Eosinophils Absolute Auto 0.1 K/mm3 (0-0.3); Eosinophils Percent Auto 1.8 % (0-4.4); Hematocrit 43.8 % (42.0-52.0); Hemoglobin 14.3 g/dL (14.0-18.0); Immature Granulocyte Absolute 0.22 K/mm3 (0.00-0.031); Immature Granulocyte Percent A 2.8 % (0-0.5); Lymphocytes Absolute Auto 0.38 K/mm3 (0.9-3.2); Lymphocytes Percent Auto 4.9 % (18.3-44.2); Mean Corpuscular HGB Conc 32.6 g/dl (32-36); Mean Corpuscular Hemoglobin 30.8 pg (26-34); Mean Corpuscular Volume 94.4 fl (80-100); Mean Platelet Volume 9.5 fl (7.4-10.4); Monocytes Percent Auto 12.9 % (2.6-8.5); Neutrophils Percent Auto 76.8 % (45.5-73.1); Platelet Count Result 144 k/mm3 (150-375); Red Blood Count 4.64 M/mm3 (4.6-6.20); Red Cell Distribution Width 14.6 % (11.5-14.5); White Blood Count 7.8 K/mm3 (4.5-10.0)
[2022-05-16 01:58] LABS: Alanine Aminotransferase 7 U/L (6-50); Albumin Level 3.6 g/dL (3.5-5.1); Alkaline Phosphatase 126 U/L (38-126); Anion Gap 6 mmol/L (8-16); Aspartate Amino Transferase 43 U/L (17-59); Blood Urea Nitrogen 24 mg/dL (9-20); Calcium 8.1 mg/dL (8.4-10.2); Carbon Dioxide 22 mmol/L (22-30); Chloride 107 mmol/L (98-107); Estimated CRCL calculation 49 ml/min; Estimated Glomerular Filt Rate 54; Glucose 112 mg/dL (65-110); Potassium 3.9 mmol/L (3.4-5.0); Sodium 135 mmol/L (137-145)
[2022-05-16 02:50] LABS: Troponin I < 0.012 ng/mL (0.000-0.034)
[2022-05-16 03:11] LABS: Appearance Urine Clear (Clear); Bilirubin Urine Negative (Negative); Blood Urine Negative (Negative); Color Urine Yellow (Yellow); Glucose Urine UA Negative (Negative); Ketones Urine Negative (Negative); Leukocyte Esterase Ur Negative LEU/UL (Negative); Nitrate Urine Negative (Negative); Protein Urine 1+ mg/dL (Negative); Urobilinogen Urine 0.2 mg/dL (<2.0)
[2022-05-16 03:16] LABS: Squamous Epithelial Cell Urine Rare /hpf (Few); WBC Urine 0-3 /hpf
[2022-05-16] MEDS: SODIUM CHLORIDE 0.9% IV 1,000 ML 999 ML IV CONT (03:19)
[2022-05-16 03:23] LABS: Add Urine Microscopic? YES
[2022-05-16 04:22] LABS: Influenza A QL RT-PCR Negative (Negative); Influenza B QL RT-PCR Negative (Negative); SARS-CoV-2 RNA PCR Negative
[2022-05-16] MEDS: CENTRAL LINE FLUSH 10 ML IV PUSH (05:51)
== END 2022-05-16 06:05 | disposition home or self-care (01) ==
PROVIDERS: Emergency Provider Preventive Medicine Aerospace Medicine; PCP Physician Assistant
DX: N39.0 Urinary tract infection, site not specified (principal); Z20.822 Contact with and (suspected) exposure to COVID-19; I10 Essential (primary) hypertension; E03.9 Hypothyroidism, unspecified
CPT/HCPCS: 36415; 71045; 80053; 81001; 83605; 84484; 85025; 87040; 87636; 96361; 96365; 96367; 96375; 99284; J0131; J0692; J1642; J7030

== ENCOUNTER 2022-05-17 00:28 | Inpatient (IN) | payer MEDICARE, SELFPAY ==
[2022-05-17] VITALS (28 sets, daily range): BP systolic 102–140; BP diastolic 50–87; PULSE 55–90; RESP 12–25; TEMP 36–37.7; O2SAT 95–100; BMI 37.0
--- NOTE | ~2022-05-17 | MR_ITS ---
EXAMINATION: MR brain/brain stem wo/w con DATE: 05/17/2022 09:58 INDICATION: Altered mental status TECHNIQUE: Magnetic resonance imaging (MRI) of the brain and brainstem was performed without and with 20 mL MultiHance intravenous contrast. COMPARISON: Brain MRI 06/02/2013, head CT 05/17/2022 FINDINGS: There are scattered areas of nonspecific increased T2-weighted signal intensity in the cere bral white matter. There is no intracranial hemorrhage, acute infarction, or abnormal intracranial ma ss lesion. There is diffuse pachymeningeal enhancement, likely secondary to prior lumbar spine surger y. The ventricles are normal in size. There is mild mucosal thickening in the paranasal sinuses. The orbits are normal. The mastoid air cells are normal. IMPRESSION: 1. Mild nonspecific cerebral white matter disease, which likely represents chronic small vessel ische tomas disease. Reviewed, dictated and finalized at location E. HEMIST IMPRESSION: 1. Mild nonspecific cerebral white matter disease, which likely represents furniture mechanic umer small vessel ischemic disease.
--- NOTE | ~2022-05-17 | CT_ITS ---
EXAMINATION: CT brain wo con DATE: 05/17/2022 02:54 INDICATION: Confusion, weakness. Fever of unknown origin. History of colon cancer. TECHNIQUE: Computed tomography (CT) of the head, chest, abdomen and pelvis was performed with 100 CC Omnipaque 350 intravenous contrast. The mA was adjusted according to patient size. Iterative reconstr uction technique was employed. Exam dose: 756.67 mGy-cm total exam DLP. COMPARISON: May 31, 2021 CT brain FINDINGS: No intracranial mass lesion or hemorrhage or cerebrovascular accident is evident. No midlin e shift or mass effect effect. No subdural or epidural hematoma is detected. No fracture or bone destruction of the cranial vault. Mastoid air cells and paranasal sinuses are unr emarkable. IMPRESSION: No significant abnormality or significant change since May 31, 2021 Reviewed, dictated and finalized at Location A. Reviewed, dictated and finalized at location A. [employer]
--- NOTE | ~2022-05-17 | US_ITS ---
US abdomen limited DATE: 05/18/2022 10:44 INDICATION: Cholelithiasis and mild gallbladder wall thickening on May 17, 2022 CT chest abdomen pelvis examination TECHNIQUE: Real-time imaging of liver, pancreas, gallbladder COMPARISON: May 17, 2022 CT chest abdomen pelvis FINDINGS: There are numerous gallstones with shadowing, consistent with cholelithiasis. Color wall do es not appear abnormally thickened. Common bile duct measures 3.5 mm, normal. The pancreas is obscured by bowel gas. Hepatic detail is limited. Normal hepatopedal portal venous fl ow direction IMPRESSION: Cholelithiasis Limited examination Reviewed, dictated and finalized at Location [facility]. Reviewed, dictated and finalized at location A. SANDER
--- NOTE | ~2022-05-17 | XR_ITS ---
XR chest 1V portable DATE: 05/17/2022 01:46 INDICATION: Weakness TECHNIQUE: Portable upright AP chest on May 17, 2022 at 0124 hours COMPARISON: May 16, 2022 portable AP chest at 0046 hours FINDINGS: Right Port-A-Cath catheter tip overlies superior vena cava. Heart size appears within normal limits. Is aortic arch calcification, aortic unfolding. There is mild infiltrate and/or atelectasis at the lung bases. Diffuse idiopathic skeletal hyperostosis of the thoracic spine. IMPRESSION: Mild bibasilar infiltrate and/or atelectasis Reviewed, dictated and finalized at location A. NICAL WRITER AND EDITOR
--- NOTE | ~2022-05-17 | CT_ITS ---
EXAMINATION: CT chest abdomen pelvis w con DATE: 05/17/2022 02:55 INDICATION: Fever of unknown origin. hx of cancer . TECHNIQUE: Computed tomography (CT) of the chest, abdomen, and pelvis was performed with 100 mL Omnip aque-350 intravenous contrast. Automated exposure control and iterative reconstruction technique were employed. The dose-length product was 1542.41 mGy-cm. COMPARISON: 12/18/2021 FINDINGS: Thoracic aorta: No significant dilation. Mild arch calcification. Lung parenchyma and airways: Airways are clear. Senescent changes. Mild bibasilar dependent subsegmen shayan consolidative opacities, presumably atelectasis. Thoracic inlet, axillae and chest wall: Subcentimeter right thyroid lobe hypodensity, requiring no ad ditional evaluation. No axillary lymphadenopathy. Right chest port, tip terminating in the SVC. Bilat eral gynecomastia. Mediastinum: No mass or lymphadenopathy. Heart and pericardium: Mild cardiomegaly. No pericardial effusion. Coronary artery calcifications: Moderate. Pleura: Small calcified left pleural plaque. Thoracic bones: No acute osseous finding in the chest. ABDOMEN/PELVIS: Liver: Multiple liver masses, most appear slightly larger than in the prior exam. Biliary/Gallbladder: Multiple gallstones. Mild pericholecystic fluid/wall edema. No bile duct dilatio n. Pancreas: Fatty atrophy. Spleen: Normal. Adrenals:No mass. Kidneys: Bilateral cortical thinning. Exophytic left renal cyst. Mild bilateral ureterectasis. GI tract: Small distal esophageal diverticulum. Prior bowel surgeries. No small or large bowel dilati on. Normal appendix. Mesentery/Peritoneum: No ascites or free air. Multiple peritoneal, intra-abdominal, and umbilical, in creasing in size. Retroperitoneum: No mass Pelvis: Pelvic organs are within normal limits Soft Tissues: Uncomplicated fat-containing left inguinal hernia. Mild body wall edema. Abdominopelvic bones: No acute osseous finding in the abdomen/pelvis. IMPRESSION: Mild dependent subsegmental atelectasis, infection is not excluded. Cholelithiasis with mild wall reji ma/thickening, correlate with pain and biliary labs. Otherwise, no additional acute process detected in the chest, abdomen, or pelvis. Worsening hepatic metastatic disease and peritoneal carcinomatosis. Reviewed, dictated and finalized at location K. NG MACHINE OPERATOR IMPRESSION: Mild dependent subsegmental atelectasis, infection is not excluded. Cholelithia sis with mild wall edema/thickening, correlate with pain and biliary labs. Othe rwise, no additional acute process detected in the chest, abdomen, or pelvis. W orsening hepatic metastatic disease and peritoneal carcinomatosis.
--- NOTE | 2022-05-17 01:04 | ED.GENADULT ---
HPI - General Adult General Chief complaint: Fall Stated complaint: fall History of Present Illness HPI narrative: This is a 76-year-old male history of colon cancer presenting ED with weakness and confusion. patient was diagnosed with UTI about 4 days ago and started on Keflex. He was then seen in our emergency department yesterday for confusion and weakness. That time his workup was negative and he was discharged home. He was doing well until this evening when he became confused, he became weak and was unable to get up out of his arm chair. Patient has had a fluctuating level of consciousness for most of the evening. He denies chest pain, difficulty breathing, abdominal pain, Urinary symptoms, URI symptoms. Related Data Home Medications Medication Instructions Recorded Confirmed gabapentin 400 mg capsule 400 mg feeding tube BID 09/20/19 06/13/21 cholecalciferol (vitamin D3) 125 125 mcg feeding tube DAILY 05/31/21 06/13/21 mcg (5,000 unit) tablet (Vitamin D3) ferrous sulfate 220 mg (44 mg 330 mg feeding tube HS 05/31/21 06/13/21 iron)/5 mL oral elixir diphenoxylate-atropine 2.5 1 tablet PO TID PRN Diarrhea 06/13/21 06/13/21 mg-0.025 mg tablet hydroxyzine HCl 10 mg tablet 10 mg PO TID PRN Anxiety 06/13/21 06/13/21 loperamide 2 mg capsule 2 mg PO Q6H PRN 09/10/21 tamsulosin 0.4 mg capsule 0.4 mg PO DAILY 09/10/21 regorafenib 40 mg tablet (Stivarga) 80 mg PO DAILY 05/17/22 Allergies Allergy/AdvReac Type Severity Reaction Status Date / Time atropine Allergy Unknown Unknown Verified 05/17/22 00:43 codeine Allergy Unknown Unknown Verified 05/17/22 00:43 lorazepam AdvReac Severe GETS Verified 05/17/22 00:43 RESTLESS AND COMBATIVE propoxyphene AdvReac Severe Nausea and Verified 05/17/22 00:43 Vomiting quetiapine [From Seroquel] AdvReac Severe other Verified 05/17/22 00:43 trazodone AdvReac Severe Other Verified 05/17/22 00:43 alprazolam AdvReac Unknown anxiety Verified 05/17/22 00:43 [facility] Past Medical History Medical History 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 Enlarged prostate with lower urinary tract symptoms (LUTS) Essential (primary) hypertension History of BPH History of colon cancer History of gastrostomy tube placement History of hypertension History of hypothyroidism Hypothyroid Mixed hyperlipidemia Obstructive sleep apnea (adult) (pediatric) Omental metastasis Other abnormal glucose Port-A-Cath in place 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 He does not use any alcohol drugs or marijuana. Code status full code Smoking status: Never smoker Alcohol intake: never Substance use: never Gender identity (if verbalized by the patient): Male Spiritual care concerns: No Exam Narrative: APPEARANCE: patient appears Unwell, A&O times 1-2 Head: atraumatic. EYES: EOMI, NOSE: Atraumatic NECK: Trachea midline, RESPIRATORY: No increased rate of breathing, clear to auscultation CARDIOVASCULAR: RRR, ABDOMINAL: bandage over the patient's belly butt
[2022-05-17] MEDS: ACETAMINOPHEN 500 MG TABLET 1000 MG PO (01:31)
[2022-05-17] MEDS: SODIUM CHLORIDE 0.9% IV 1,000 ML 999 ML IV CONT (01:31)
[2022-05-17 01:47] LABS: Glucose Point of Care 114 mg/dl (65-105)
[2022-05-17 01:53] LABS: Basophils Absolute Auto 0.1 K/mm3 (0.0-0.1); Basophils Percent Auto 0.8 % (0.2-1.2); Eosinophils Absolute Auto 0.1 K/mm3 (0-0.3); Eosinophils Percent Auto 1.3 % (0-4.4); Hematocrit 44.6 % (42.0-52.0); Hemoglobin 14.4 g/dL (14.0-18.0); Immature Granulocyte Absolute 0.15 K/mm3 (0.00-0.031); Immature Granulocyte Percent A 2.5 % (0-0.5); Immature Platelet Fraction Pct 2.2 % (0.9-11.2); Lymphocytes Absolute Auto 0.35 K/mm3 (0.9-3.2); Lymphocytes Percent Auto 5.7 % (18.3-44.2); Mean Corpuscular HGB Conc 32.3 g/dl (32-36); Mean Corpuscular Hemoglobin 30.2 pg (26-34); Mean Corpuscular Volume 93.5 fl (80-100); Mean Platelet Volume 9.1 fl (7.4-10.4); Monocytes Absolute Auto 0.7 K/mm3 (0.1-0.6); Monocytes Percent Auto 11.6 % (2.6-8.5); Neutrophils Absolute Auto 4.8 K/mm3 (1.3-6.7); Neutrophils Percent Auto 78.1 % (45.5-73.1); Platelet Count Result 138 k/mm3 (150-375); Red Blood Count 4.77 M/mm3 (4.6-6.20); Red Cell Distribution Width 14.6 % (11.5-14.5); White Blood Count 6.1 K/mm3 (4.5-10.0)
[2022-05-17 02:01] LABS: Appearance Urine Clear (Clear); Bilirubin Urine Negative (Negative); Blood Urine Trace-intact (Negative); Color Urine Yellow (Yellow); Glucose Urine UA Negative (Negative); Ketones Urine Negative (Negative); Leukocyte Esterase Ur Negative LEU/UL (Negative); Nitrate Urine Negative (Negative); Protein Urine 1+ mg/dL (Negative); Specific Grav Ur 1.015 (1.001-1.035); Urobilinogen Urine 0.2 mg/dL (<2.0); pH Urine 5.5 (5.0-9.0)
[2022-05-17 02:02] LABS: INR 1.2; Prothrombin Time 14.9 Seconds (11.1-14.7)
[2022-05-17 02:03] LABS: Partial Thromboplastin Time 39.8 SECONDS (22.3-36.8)
[2022-05-17 02:06] LABS: Add Urine Microscopic? YES; Squamous Epithelial Cell Urine Rare /hpf (Few); WBC Urine 0-3 /hpf
[2022-05-17 02:12] LABS: Alanine Aminotransferase 7 U/L (6-50); Albumin Level 3.8 g/dL (3.5-5.1); Alkaline Phosphatase 131 U/L (38-126); Anion Gap 7 mmol/L (8-16); Aspartate Amino Transferase 46 U/L (17-59); Bilirubin,Total 1.1 mg/dL (0.2-1.3); Blood Urea Nitrogen 22 mg/dL (9-20); Calcium 8.2 mg/dL (8.4-10.2); Carbon Dioxide 20 mmol/L (22-30); Chloride 104 mmol/L (98-107); Creatine Kinase 224 U/L (55-170); Estimated Glomerular Filt Rate 54; Glucose 108 mg/dL (65-110); Lipase 232 U/L (23-300); Magnesium 2.1 mg/dL (1.6-2.3); Potassium 3.7 mmol/L (3.4-5.0); Sodium 131 mmol/L (137-145)
[2022-05-17 02:13] LABS: Lactic Acid Reflex 0.9 mmol/L (0.7-2.0)
[2022-05-17 02:24] LABS: Troponin I < 0.012 ng/mL (0.000-0.034)
[2022-05-17 02:28] LABS: Influenza A QL RT-PCR Negative (Negative); Influenza B QL RT-PCR Negative (Negative); RSV RNA, RT-PCR Negative (Negative); SARS-CoV-2 RNA PCR Negative
--- NOTE | 2022-05-17 05:24 | PM.IMHP ---
H&P: HPI History of Present Illness Date/Time: 05/17/22 05:24 Chief Complaint: AMS Narrative: This is a 76-year-old male with past medical history significant for recurrent colorectal cancer now metastatic to omentum brought him to the emergency room due to altered mental status, he was seen and evaluated in emergency room the day before routine lab work did not show acute abnormalities and patient was discharged home however there was no improvement and decided to bring him back due to obtundation, delirium, generalized weakness, unable to walk due to plantar and heel pain. History has been obtained mainly from who is at bedside as patient is delirious, obtunded, lethargic. Preliminary workup has been significant for chest x-ray with infiltrates reported as: FINDINGS: Right Port-A-Cath catheter tip overlies superior vena cava. Heart size appears within normal limits. Is aortic arch calcification, aortic unfolding. There is mild infiltrate and/or atelectasis at the lung bases. Diffuse idiopathic skeletal hyperostosis of the thoracic spine. IMPRESSION: Mild bibasilar infiltrate and/or atelectasis A head CT was reported as: FINDINGS: No intracranial mass lesion or hemorrhage or cerebrovascular accident is evident. No midline shift or mass effect effect. No subdural or epidural hematoma is detected. No fracture or bone destruction of the cranial vault. Mastoid air cells and paranasal sinuses are unremarkable. IMPRESSION:? No significant abnormality or significant change since May 31, 2021 CT of chest abdomen and pelvis was reported as: Thoracic aorta: No significant dilation. Mild arch calcification. Lung parenchyma and airways: Airways are clear. Senescent changes. Mild bibasilar dependent subsegmental consolidative opacities, presumably atelectasis. Thoracic inlet, axillae and chest wall: Subcentimeter right thyroid lobe hypodensity, requiring no additional evaluation. No axillary lymphadenopathy. Right chest port, tip terminating in the SVC. Bilateral gynecomastia. Mediastinum: No mass or lymphadenopathy. Heart and pericardium: Mild cardiomegaly. No pericardial effusion. Coronary artery calcifications: Moderate. Pleura: Small calcified left pleural plaque. Thoracic bones: No acute osseous finding in the chest. ABDOMEN/PELVIS: Liver: Multiple liver masses, most appear slightly larger than in the prior exam.? Biliary/Gallbladder: Multiple gallstones. Mild pericholecystic fluid/wall edema. No bile duct dilation. Pancreas: Fatty atrophy. Spleen: Normal. Adrenals:No mass. Kidneys: Bilateral cortical thinning. Exophytic left renal cyst. Mild bilateral ureterectasis. GI tract: Small distal esophageal diverticulum. Prior bowel surgeries. No small or large bowel dilation. Normal appendix. Mesentery/Peritoneum: No ascites or free air. Multiple peritoneal, intra-abdominal, and umbilical, increasing in size. Retroperitoneum: No mass Pelvis: Pelvic organs are within normal limits Soft Tissues: Uncomplicated fat-containing left inguinal hernia. Mild body wall edema. Abdominopelvic bones:? No acute osseous finding in the abdomen/pelvis. IMPRESSION: Mild dependent subsegmental atelectasis, infection is not excluded. Cholelithiasis with mild wall edema/thickening, correlate with pain and biliary labs. Otherwise, no additional acute process detected in the chest, abdomen, or pelvis. Worsening hepatic metastatic disease and peritoneal carcinomatosis. Review of Systems Review of Systems: ROS unobtainable: Yes unobtainable due to mental status (Lethargy, obtundation.) [facility] Past Medical History Medical History 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 Enlarged prostate with lower urinary tract symptoms (LUTS) Essential (primary) hypertension History of BPH History of colon cancer History of gastrostomy tube placement
--- NOTE | 2022-05-17 05:35 | ECG_ITS ---
Measurements Intervals [place] Rate: 58 P: 11 NH: 240 QRS: -25 QRSD: 112 T: 3 QT: 401 QTc: 396 Interpretive Statements SINUS BRADYCARDIA WITH FIRST DEGREE AV BLOCK BORDERLINE LEFT AXIS DEVIATION [QRS AXIS < -20] MODERATE INTRAVENTRICULAR CONDUCTION DELAY [110+ ms QRS DURATION] COMPARED TO ECG 06/13/2021 10:02:06 SINUS BRADYCARDIA NOW PRESENT FIRST DEGREE AV BLOCK NOW PRESENT INTRAVENTRICULAR CONDUCTION DELAY NOW PRESENT Electronically Signed On 05-17-2022 8:41:06 DRY CELL TESTER by Nina Huang M.D.
--- NOTE | 2022-05-17 06:46 | ADMGEN ---
This patient, Eagle Mendez, was admitted to [facility] Surg Room 316-02. Patient/family oriented to hospital policies and general routines including ID bracelet, bed and alarms, visiting hours, pain management, procedures, bathroom and other care routines, personal items, smoking policy, room service/diet, and visiting hours. Information on how to activate the Rapid Response Team has been discussed. Patient/Family are encouraged to report perceived risks to care and to ask questions if they do not understand what they are told or what they should do.
--- NOTE | 2022-05-17 10:24 | PM.IMPN ---
Progress Note: A&P Assessment and Plan (1) Acute metabolic encephalopathy: Code(s): G93.41 - Metabolic encephalopathy Status: Acute Assessment and Plan: Patient is alert and oriented x4 for me on exam but has complaints of confusion and this is confirmed by - will check brain MRI with and without due to history of metastatic cancer. there are no neurological deficits on exam - patient recently diagnosed with a UTI outpatient. the most recent UA done today does not appear infectious so his previous uti is likely being adequately treated. Patient was on Keflex outpt so we will continue ceftriaxone. cephalosporins can cause altered mental status although this is less likely as the patient has had these medications in the past - due to recent infection, recent procedure and current oral chemo, will await blood cultures although he has no signs of bacteremia at this time - will draw a B12 and folate. TSH normal - could be side effect of his chemo medication? will rule out above before attributing it to this - no new changes in medication which could cause these issues - sodium slightly low in carbon dioxide also slightly low. Patient is breathing normal and mentating just fine during my exam. No need for ABG at this time but may consider if this worsens or he becomes more altered. - patient does have kissing lesions to his medial aspect of his feet. These do not seem infectious at this time. Do not suspect septic emboli as the cause (2) Weakness: Code(s): R53.1 - Weakness Status: Acute Assessment and Plan: will order PT and OT. Patient has peripheral neuropathy which causes pain with therapy (3) Colon cancer metastasized to multiple sites: Code(s): C18.9 - Malignant neoplasm of colon, unspecified Status: Acute Assessment and Plan: currently on oral medication for such - will hold this medication until above findings have resulted (4) Delirium: Code(s): R41.0 - Disorientation, unspecified Status: Acute Assessment and Plan: as noted above (5) Chemotherapy-induced neuropathy: Code(s): G62.0 - Drug-induced polyneuropathy; T45.1X5A - Adverse effect of antineoplastic and immunosuppressive drugs, initial encounter Status: Chronic Assessment and Plan: continue gabapentin (6) Chronic anemia: Code(s): D64.9 - Anemia, unspecified Status: Acute Assessment and Plan: no anemia on labs today (7) Parkinson disease: Code(s): G20 - Parkinson's disease Status: Acute Assessment and Plan: continue Sinemet (8) Spinal stenosis, lumbar region without neurogenic claudication: Code(s): M48.061 - Spinal stenosis, lumbar 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 This is likely due to his new shoes with his neuropathy. Would recommend conservative treatment and monitoring at this time. Follow-up with Podiatry (10) UTI (urinary tract infection): Code(s): N39.0 - Urinary tract infection, site not specified Status: Acute Assessment and Plan: patient states he was diagnosed with this ( reports positive urine culture) outpatient and was prescribed Keflex - continue ceftriaxone - bacteremia seems less likely to be the cause of above but will wait for blood cultures Plan will do SCDs for DVT prophylaxis until brain MRI comes back verify no Mets Time Spent With Patient Time with patient: 25 - 35 minutes Subjective Date/time seen: 05/17/22 10:24 Interval history: Pt is a 76-year-old male here for altered mental status. Patient is with his at bedside
[2022-05-17] MEDS: TAMSULOSIN HCL 0.4 MG CAPSULE PO (10:57)
[2022-05-17] MEDS: FINASTERIDE 5 MG TABLET PO (10:57)
[2022-05-17] MEDS: amLODIPine BESYLATE 5 MG TABLET 10 MG PO (10:57)
[2022-05-17] MEDS: FAMOTIDINE 20 MG TABLET PO ×2 (10:57→20:32)
[2022-05-17] MEDS: GABAPENTIN 400 MG CAPSULE PO ×2 (10:57→16:51)
[2022-05-17] MEDS: CARBIDOPA/LEVODOPA 25/100 MG TABLET 2 TABLET PO ×4 (10:57→20:31)
[2022-05-17 11:36] LABS: Folic Acid 9.6 ng/mL (2.76->20)
--- NOTE | 2022-05-17 14:31 | PCPTNOTE ---
attempted PT evaluation, pt refused, stating not feeling well; was just admitted this early AM and has had multiple tests.
[2022-05-18 05:42] VITALS: BP 133/76; PULSE 90; RESP 14; TEMP 38.1; O2SAT 95
[2022-05-18] MEDS: LEVOTHYROXINE SODIUM 88 MCG TABLET PO (05:58)
[2022-05-18] MEDS: ACETAMINOPHEN 325 MG TABLET 650 MG PO ×2 (05:58→11:50)
[2022-05-18 07:06] LABS: Anion Gap 7 mmol/L (8-16); Blood Urea Nitrogen 18 mg/dL (9-20); Carbon Dioxide 20 mmol/L (22-30); Chloride 105 mmol/L (98-107); Creatine Kinase 248 U/L (55-170); Estimated CRCL calculation 50 ml/min; Estimated Glomerular Filt Rate 54; Glucose 100 mg/dL (65-110); Potassium 3.4 mmol/L (3.4-5.0); Sodium 132 mmol/L (137-145)
--- NOTE | 2022-05-18 11:34 | PM.IMPN ---
Progress Note: A&P Assessment and Plan (1) Acute metabolic encephalopathy: Code(s): G93.41 - Metabolic encephalopathy Status: Acute Assessment and Plan: Patient? is alert and oriented x4 on exam but has complaints of confusion and this is confirmed by -no neurological deficits on exam -MRI brain negative for acute findings or metastases -patient recently diagnosed with a UTI outpatient. the most recent UA done does not appear infectious so his previous uti is likely being adequately treated.? Patient was on Keflex outpt so we will continue ceftriaxone. cephalosporins can cause altered mental status although this is less likely as the patient has had these medications in the past -due to recent infection, recent procedure and current oral chemo, will await blood cultures although? he has no signs of bacteremia at this time -B12 and folate negative -TSH normal - could be side effect of his chemo medication? will rule out above before? attributing it to this - no new changes in medication which could cause these issues - sodium slightly low in carbon dioxide also slightly low.? Patient is breathing normal and mentating just fine during my exam.? No need for ABG at this time but may consider if this worsens or he becomes more altered. - patient does have kissing lesions to his medial aspect of his feet.? These do not seem infectious at this time.? Do not suspect septic emboli as the cause. (2) Weakness: Code(s): R53.1 - Weakness Status: Acute Assessment and Plan: -PT and OT.? -Patient has peripheral neuropathy which causes pain with therapy (3) Colon cancer metastasized to multiple sites: Code(s): C18.9 - Malignant neoplasm of colon, unspecified Status: Acute Assessment and Plan: -currently on oral chemo meds -will hold medication at this time, pt's attempting to reach his oncologist, requested that we speak with him if possible. 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 May need to get image on a disc so that she can get it to his oncologist for more accurate and recent comparison? (4) Chemotherapy-induced neuropathy: Code(s): G62.0 - Drug-induced polyneuropathy; T45.1X5A - Adverse effect of antineoplastic and immunosuppressive drugs, initial encounter Status: Chronic Assessment and Plan: -continue gabapentin (5) Wound of foot: Code(s): S91.309A - Unspecified open wound, unspecified foot, initial encounter Status: Acute Assessment and Plan: -on exam these do not look infectious and he has seen Podiatry for this.? -This is likely due to his new shoes with his neuropathy.? -Would recommend conservative treatment and monitoring at this time.? -Follow-up with Podiatry - requests wound care consult (6) Acute UTI: Code(s): N39.0 - Urinary tract infection, site not specified Status: Acute Assessment and Plan: -patient states he was diagnosed with this ( reports positive urine culture)? outpatient and was prescribed Keflex -continue ceftriaxone -bacteremia seems less likely to be the cause of above but will wait for blood cultures (7) Rash: Code(s): R21 - Rash and other nonspecific skin eruption Status: Acute Assessment and Plan: -reports painful rash to posterior neck/scalp -on exam appears left sided, maybe midline but does not seem to be on the right side, somewhat vesicular in appearance -ddx includes shingles, cellulitis, reaction to new chemo drug, etc -suspect shingles at this time due to the severe pain. Has been ongoing x 1 week thus will hold off on antiviral therapy at this time. He is already using topical lidocaine. states he does not tolerate any
[2022-05-18] MEDS: CARBIDOPA/LEVODOPA 25/100 MG TABLET 2 TABLET PO ×3 (11:51→20:17)
[2022-05-18] MEDS: FAMOTIDINE 20 MG TABLET PO ×2 (11:51→20:17)
[2022-05-18] MEDS: FINASTERIDE 5 MG TABLET PO (11:51)
[2022-05-18] MEDS: TAMSULOSIN HCL 0.4 MG CAPSULE PO (11:51)
[2022-05-18] MEDS: amLODIPine BESYLATE 5 MG TABLET 10 MG PO (11:51)
[2022-05-18] MEDS: PYRIDOXINE HCL 50 MG TABLET 200 MG PO (11:52)
[2022-05-18] MEDS: GABAPENTIN 400 MG CAPSULE PO ×2 (11:52→17:00)
[2022-05-18 14:00] VITALS: BP 119/74; PULSE 69; RESP 16; TEMP 36.2; O2SAT 99
[2022-05-18 20:07] VITALS: BP 116/72; PULSE 78; RESP 16; TEMP 36.4; O2SAT 98
[2022-05-19] MEDS: LEVOTHYROXINE SODIUM 88 MCG TABLET PO (05:48)
[2022-05-19 05:56] VITALS: BP 149/91; PULSE 96; RESP 18; TEMP 36.5; O2SAT 94
[2022-05-19 06:21] LABS: Basophils Absolute Auto 0.1 K/mm3 (0.0-0.1); Basophils Percent Auto 0.8 % (0.2-1.2); Eosinophils Absolute Auto 0.2 K/mm3 (0-0.3); Eosinophils Percent Auto 2.4 % (0-4.4); Hematocrit 44.3 % (42.0-52.0); Hemoglobin 14.4 g/dL (14.0-18.0); Immature Granulocyte Percent A 1.2 % (0-0.5); Immature Platelet Fraction Pct 3.1 % (0.9-11.2); Lymphocytes Absolute Auto 0.59 K/mm3 (0.9-3.2); Mean Corpuscular HGB Conc 32.5 g/dl (32-36); Mean Corpuscular Hemoglobin 29.5 pg (26-34); Mean Corpuscular Volume 90.8 fl (80-100); Mean Platelet Volume 10.5 fl (7.4-10.4); Monocytes Absolute Auto 1.1 K/mm3 (0.1-0.6); Monocytes Percent Auto 13.2 % (2.6-8.5); Neutrophils Absolute Auto 6.3 K/mm3 (1.3-6.7); Neutrophils Percent Auto 75.4 % (45.5-73.1); Platelet Count Result 85 k/mm3 (150-375); Red Blood Count 4.88 M/mm3 (4.6-6.20); Red Cell Distribution Width 14.5 % (11.5-14.5); White Blood Count 8.4 K/mm3 (4.5-10.0)
[2022-05-19 06:46] LABS: Alanine Aminotransferase 9 U/L (6-50); Albumin Level 3.3 g/dL (3.5-5.1); Alkaline Phosphatase 117 U/L (38-126); Anion Gap 8 mmol/L (8-16); Aspartate Amino Transferase 44 U/L (17-59); Blood Urea Nitrogen 18 mg/dL (9-20); Calcium 7.8 mg/dL (8.4-10.2); Carbon Dioxide 19 mmol/L (22-30); Chloride 110 mmol/L (98-107); Estimated CRCL calculation 58 ml/min; Estimated Glomerular Filt Rate > 60; Glucose 112 mg/dL (65-110); Potassium 3.5 mmol/L (3.4-5.0); Sodium 137 mmol/L (137-145)
[2022-05-19] MEDS: amLODIPine BESYLATE 5 MG TABLET 10 MG PO (08:01)
[2022-05-19] MEDS: TAMSULOSIN HCL 0.4 MG CAPSULE PO (08:02)
[2022-05-19] MEDS: CARBIDOPA/LEVODOPA 25/100 MG TABLET 2 TABLET PO ×2 (08:02→12:17)
[2022-05-19] MEDS: GABAPENTIN 400 MG CAPSULE PO (08:03)
[2022-05-19] MEDS: FAMOTIDINE 20 MG TABLET PO (08:03)
[2022-05-19] MEDS: FINASTERIDE 5 MG TABLET PO (08:03)
[2022-05-19] MEDS: PYRIDOXINE HCL 50 MG TABLET 200 MG PO (08:03)
[2022-05-19 08:59] VITALS: O2SAT 94
[2022-05-19] MEDS: ACETAMINOPHEN 325 MG TABLET 650 MG PO (09:56)
--- NOTE | 2022-05-19 12:45 | PCOTNOTE ---
Attempted to see patient this pm, however patient declined stating, I don't feel like it. I'm not feeling very well.
[2022-05-19 14:00] VITALS: BP 105/63; PULSE 100; RESP 20; TEMP 36.2; O2SAT 97
--- NOTE | 2022-05-19 14:43 | PM.IMPN ---
Progress Note: A&P Assessment and Plan (1) Acute metabolic encephalopathy: Code(s): G93.41 - Metabolic encephalopathy Status: Acute Assessment and Plan: Patient?is alert and oriented x4 on exam but has complaints of confusion and this is confirmed by -no neurological deficits on exam -MRI brain negative for acute findings or metastases -patient recently diagnosed with a UTI outpatient treated with p.o. Keflex. repeat UA at this facility on 05/17 without concerns for infection cyst suspect outpatient UTI be adequately treated. continue with IV ceftriaxone during admission to complete a 7 day course. - Blood cultures pending in light of recent infection, procedure, and oral chemotherapy use. Cultures negative to date, await final cultures -B12 and folate within normal limits -TSH normal - may be related to adverse effect from chemotherapy. - Does have very mildly decreased - patient and report improvement in mental status today (2) Weakness: Code(s): R53.1 - Weakness Status: Acute Assessment and Plan: as above, etiology is unclear, may be multifactorial secondary to cancer, chemotherapy, UTI, additionally, patient has peripheral neuropathy and has pain with ambulation - continue PT/OT - fall precautions (3) Colon cancer metastasized to multiple sites: Code(s): C18.9 - Malignant neoplasm of colon, unspecified Status: Acute Assessment and Plan: established with oncologist, Dr. Brown - oral chemotherapy is on hold given recent increased weakness - call today to patient's oncologist to update on patient's course per 's request. able to reach and left a message, will await return call on -CT notes worsening metastatic disease but states his most recent imaging was not done within the [facility]. will provide disc with CT scan for patient to take to his next oncology appointment which is scheduled for , 05/22 (4) Chemotherapy-induced neuropathy: Code(s): G62.0 - Drug-induced polyneuropathy; T45.1X5A - Adverse effect of antineoplastic and immunosuppressive drugs, initial encounter Status: Chronic Assessment and Plan: chronic, unchanged -continue gabapentin. reports inpatient gabapentin regimen is lower than his home regimen. Will increase to 1200 mg p.o. b.i.d. based on patient's home regimen (5) Wound of foot: Code(s): S91.309A - Unspecified open wound, unspecified foot, initial encounter Status: Acute Assessment and Plan: appears to have bilateral blisters in the same location on the medial surface of both heels - this is likely due to poor fitting shoes and neuropathy - his states that he had increased swelling in his legs causing issues to be too tight - swelling has resolved at this time - patient evaluated by wound care; continue with conservative management (6) Acute UTI: Code(s): N39.0 - Urinary tract infection, site not specified Status: Acute Assessment and Plan: as above, patient treated outpatient for acute UTI and started on Keflex - UA on admission not concerning for infection - continue with IV ceftriaxone for complete treatment of outpatient UTI (7) Rash: Code(s): R21 - Rash and other nonspecific skin eruption Status: Acute Assessment and Plan: patient with unclear rash on the left posterior neck extending up the scalp as well as small patch of the left anterior neck, collar bone, and cheek - appear blistered and dried - patient states this is the ongoing for 1 week, however states she just noticed this yesterday - shingles considered, however not in typical dermatomal distribution - may be due to oral chemotherapy. Awaiting return call from oncologist - findings not felt to be consistent with cellulitis - no indication for antiviral at this time given symptom duration and dried vesicular rash (8) Cholelithia
[2022-05-19] MEDS: GABAPENTIN 400 MG CAPSULE 1200 MG PO (16:28)
[2022-05-19 21:43] VITALS: BP 125/69; PULSE 84; RESP 14; TEMP 36.9; O2SAT 96
[2022-05-20] MEDS: LEVOTHYROXINE SODIUM 88 MCG TABLET PO (05:40)
[2022-05-20] MEDS: CARBIDOPA/LEVODOPA 25/100 MG TABLET 1 TABLET PO ×2 (05:40→14:14)
[2022-05-20 05:47] VITALS: BP 126/75; PULSE 75; RESP 14; TEMP 36.9; O2SAT 96
[2022-05-20 07:54] LABS: Basophils Absolute Auto 0.1 K/mm3 (0.0-0.1); Basophils Percent Auto 0.7 % (0.2-1.2); Eosinophils Absolute Auto 0.4 K/mm3 (0-0.3); Eosinophils Percent Auto 4.4 % (0-4.4); Hematocrit 42.5 % (42.0-52.0); Hemoglobin 13.9 g/dL (14.0-18.0); Immature Granulocyte Absolute 0.09 K/mm3 (0.00-0.031); Immature Granulocyte Percent A 1.1 % (0-0.5); Immature Platelet Fraction Pct 3.9 % (0.9-11.2); Lymphocytes Absolute Auto 1.17 K/mm3 (0.9-3.2); Lymphocytes Percent Auto 14.4 % (18.3-44.2); Mean Corpuscular HGB Conc 32.7 g/dl (32-36); Mean Corpuscular Hemoglobin 30.7 pg (26-34); Mean Corpuscular Volume 93.8 fl (80-100); Mean Platelet Volume 9.8 fl (7.4-10.4); Monocytes Absolute Auto 1.1 K/mm3 (0.1-0.6); Monocytes Percent Auto 13.8 % (2.6-8.5); Neutrophils Absolute Auto 5.3 K/mm3 (1.3-6.7); Neutrophils Percent Auto 65.6 % (45.5-73.1); Platelet Count Result 95 k/mm3 (150-375); Red Blood Count 4.53 M/mm3 (4.6-6.20); Red Cell Distribution Width 14.8 % (11.5-14.5); White Blood Count 8.1 K/mm3 (4.5-10.0)
[2022-05-20 08:01] LABS: Anion Gap 4 mmol/L (8-16); Blood Urea Nitrogen 20 mg/dL (9-20); Calcium 7.7 mg/dL (8.4-10.2); Carbon Dioxide 21 mmol/L (22-30); Chloride 106 mmol/L (98-107); Estimated CRCL calculation 54 ml/min; Estimated Glomerular Filt Rate 59; Glucose 104 mg/dL (65-110); Potassium 3.5 mmol/L (3.4-5.0); Sodium 131 mmol/L (137-145)
[2022-05-20] MEDS: GABAPENTIN 400 MG CAPSULE 1200 MG PO ×2 (09:12→16:36)
[2022-05-20] MEDS: FINASTERIDE 5 MG TABLET PO (09:13)
[2022-05-20] MEDS: amLODIPine BESYLATE 5 MG TABLET 10 MG PO (09:13)
[2022-05-20] MEDS: PYRIDOXINE HCL 50 MG TABLET 200 MG PO (09:13)
[2022-05-20] MEDS: TAMSULOSIN HCL 0.4 MG CAPSULE PO (09:13)
[2022-05-20] MEDS: FAMOTIDINE 20 MG TABLET PO (09:13)
--- NOTE | 2022-05-20 11:01 | PC.NURSE ---
Spoke to phan pires at 1000 about pt iv going bad. pt was getting iv rocephin for uti. pt was taking keflex at home before admission. This nurse was told to not start another iv and the antibiotic will be switched to po.
[2022-05-20 14:00] VITALS: BP 118/72; PULSE 85; RESP 22; TEMP 36.4; O2SAT 100
--- NOTE | 2022-05-20 16:33 | PM.DS ---
DS: Admitting Diagnosis Discharge Date 05/20/22 Admitting Diagnosis see below DS: Discharge Diagnosis Discharge Diagnosis (1) Rash: Code(s): R21 - Rash and other nonspecific skin eruption Status: Acute Assessment and Plan: Patient with unclear rash on the left posterior neck extending up the scalp as well as small patch of the left anterior neck, collar bone, and cheek - appear blistered and dried - patient states this is the ongoing for 1 week, however states she just noticed this yesterday - shingles considered although not in typical dermatomal distribution. Due to his ongoing cancer treatment, 7 days of acyclovir was given at discharge -f/u with PCP, set on (2) Acute metabolic encephalopathy: Code(s): G93.41 - Metabolic encephalopathy Status: Acute Assessment and Plan: Resolved -no neurological deficits on exam -MRI brain negative for acute findings or metastases -patient recently diagnosed with a UTI outpatient treated with p.o. Keflex. Repeat UA at this facility on 05/17 without concern for worsening infection. Pt was treated with ceftriaxone. - Blood cultures without growth -B12 and folate within normal limits -TSH normal (3) Thrombocytopenia: Code(s): D69.6 - Thrombocytopenia, unspecified Status: Acute Assessment and Plan: May be due to viral infection or chemo -improved today up to 95k from 85k yesterday although was 144k on admission - f/u with oncology, Dr. Brown notified (4) Weakness: Code(s): R53.1 - Weakness Status: Acute Assessment and Plan: as above, etiology is unclear, may be multifactorial secondary to cancer, chemotherapy, UTI, additionally, patient has peripheral neuropathy and has pain with ambulation -discharge on home health (5) Colon cancer metastasized to multiple sites: Code(s): C18.9 - Malignant neoplasm of colon, unspecified Status: Acute Assessment and Plan: established with oncologist, Dr. Brown and I spoke with him about the case - oral chemotherapy is on hold given recent increased weakness, he is to f/u on and discuss this with Dr. Brown -CT notes worsening metastatic disease but states his most recent imaging was not done within the [facility]. Pt's has requested the disc and they are going to give it to Dr. Brown (6) Chemotherapy-induced neuropathy: Code(s): G62.0 - Drug-induced polyneuropathy; T45.1X5A - Adverse effect of antineoplastic and immunosuppressive drugs, initial encounter Status: Chronic Assessment and Plan: chronic, unchanged -continue gabapentin (7) Wound of foot: Code(s): S91.309A - Unspecified open wound, unspecified foot, initial encounter Status: Acute Assessment and Plan: Resolving. due to poor fitting shoes (8) Acute UTI: Code(s): N39.0 - Urinary tract infection, site not specified Status: Acute Assessment and Plan: as above, patient treated outpatient for acute UTI and started on Keflex - UA on admission not concerning for infection -Pt completed tx with ceftriaxone while hospitalized (9) Cholelithiasis: Code(s): K80.20 - Calculus of gallbladder without cholecystitis without obstruction Status: Acute Assessment and Plan: CT noted gallbladder wall thickening -RUQ US ordered showed cholelithiasis, no cholecystitis -currently asymptomatic and tolerating diet DS: Summary Hospital Course Hospital Course: Patient is a 76-year-old male who presented to the emergency room for weakness and confusion. Patient had recently been diagnosed with an UTI and he was on keflex and he was switched to ceftriaxone during his hospital stay. His blood cultures showed no growth to date will be monitored until finalized. He developed a left facial and left neck rash as detailed above and was started on acyclovir.
== END 2022-05-20 18:00 | disposition home health service (06) | DRG 71 ==
LOC: ANHED 05:36 → ANH3MEDSUR 05:56
PROVIDERS: Physician Assistant; Admitting Provider Internal Medicine; Emergency Provider Emergency Medicine; PCP Physician Assistant; Visit Provider Physician Assistant
DX: G93.41 Metabolic encephalopathy (principal); C18.9 Malignant neoplasm of colon, unspecified; C78.7 Secondary malignant neoplasm of liver and intrahepatic bile duct; N39.0 Urinary tract infection, site not specified; C78.6 Secondary malignant neoplasm of retroperitoneum and peritoneum; G62.0 Drug-induced polyneuropathy; T45.1X5A Adverse effect of antineoplastic and immunosuppressive drugs, initial encounter; Z20.822 Contact with and (suspected) exposure to COVID-19; D63.0 Anemia in neoplastic disease; D69.6 Thrombocytopenia, unspecified; E03.9 Hypothyroidism, unspecified; E78.2 Mixed hyperlipidemia; G47.33 Obstructive sleep apnea (adult) (pediatric); G20 Parkinson's disease; I10 Essential (primary) hypertension; K80.20 Calculus of gallbladder without cholecystitis without obstruction; M48.061 Spinal stenosis, lumbar region without neurogenic claudication; N40.0 Benign prostatic hyperplasia without lower urinary tract symptoms; R62.7 Adult failure to thrive; R23.8 Other skin changes; Z99.89 Dependence on other enabling machines and devices; Z90.49 Acquired absence of other specified parts of digestive tract
CPT/HCPCS: 36415; 51701; 70450; 70553; 71045; 71260; 74177; 76705; 80048; 80053; 81001; 82550; 82607; 82746; 82948; 83605; 83690; 83735; 84443; 84484; 85025; 85055; 85610; 85730; 87040; 87636; 87637; 93005; 96360; 96361; 96365; 96367; 96375; 97110; 97161; 97165; 97530; 97535; 99285; A9270; A9577; J0131; J0692; J0696; J1642; J7030; Q9967

== ENCOUNTER 2022-06-17 13:28 | Emergency (ER) | payer MEDICARE, SELFPAY ==
[2022-06-17 14:24] VITALS: BP 153/93; PULSE 71; RESP 14; TEMP 36.3; O2SAT 100
--- NOTE | 2022-06-17 15:29 | ED.GENADULT ---
HPI - General Adult General Chief complaint: Skin/Abscess/Foreign Body Stated complaint: Shingles Time Seen by Provider: 06/17/22 14:30 History of Present Illness HPI narrative: 76-year-old male presented to the emergency department for evaluation of persistent pain after a recent shingles infection. Patient states he had a rash on his left scalp that was being treated by his primary care physician as shingles. Patient completed his acyclovir. Patient did consult his oncologist for pain management and patient was started on amitriptyline and also on gabapentin. Patient reports he attempted to take amitriptyline last night but it just made him too tired. Patient was told that he could take increased gabapentin tonight if his pain worsens. Patient and presented to the emergency department today looking for additional options. Patient does not want to be started on any narcotic pain medications due to concern of addiction. Related Data Home Medications Medication Instructions Recorded Confirmed gabapentin 400 mg capsule 1,200 mg PO BID 09/20/19 05/19/22 cholecalciferol (vitamin D3) 125 125 mcg PO DAILY 05/31/21 05/17/22 mcg (5,000 unit) tablet (Vitamin D3) diphenoxylate-atropine 2.5 1 tablet PO TID PRN Diarrhea 06/13/21 05/17/22 mg-0.025 mg tablet hydroxyzine HCl 10 mg tablet 10 mg PO TID PRN Anxiety 06/13/21 05/17/22 loperamide 2 mg capsule 2 mg PO Q6H PRN Nausea 09/10/21 05/17/22 famotidine 20 mg tablet (Pepcid) 20 mg PO Q12H 05/17/22 05/17/22 finasteride 5 mg tablet 5 mg PO DAILY 05/17/22 05/17/22 levothyroxine 88 mcg tablet 88 mcg PO DAILY@0630 05/17/22 05/17/22 pyridoxine (vitamin B6) 200 mg 200 mg PO DAILY 05/17/22 05/17/22 tablet,extended release regorafenib 40 mg tablet (Stivarga) 80 mg PO DAILY 05/17/22 05/17/22 carbidopa 25 mg-levodopa 100 mg 1 tablet PO TID 05/19/22 05/19/22 tablet Allergies Allergy/AdvReac Type Severity Reaction Status Date / Time atropine Allergy Unknown Unknown Verified 05/17/22 00:43 codeine Allergy Unknown Unknown Verified 05/17/22 00:43 lorazepam AdvReac Severe GETS Verified 05/17/22 00:43 RESTLESS AND COMBATIVE propoxyphene AdvReac Severe Nausea and Verified 05/17/22 00:43 Vomiting quetiapine [From Seroquel] AdvReac Severe other Verified 05/17/22 00:43 trazodone AdvReac Severe Other Verified 05/17/22 00:43 alprazolam AdvReac Unknown anxiety Verified 05/17/22 00:43 Review of Systems Review of Systems: All systems reviewed & are unremarkable except as noted in HPI and below PMFSH Past Medical History Medical History 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 Enlarged prostate with lower urinary tract symptoms (LUTS) Essential (primary) hypertension History of BPH History of colon cancer History of gastrostomy tube placement History of hypertension History of hypothyroidism Hypothyroid Mixed hyperlipidemia Obstructive sleep apnea (adult) (pediatric) Omental metastasis Other abnormal glucose Port-A-Cath in place 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 He is a lifelong
== END 2022-06-17 15:51 | disposition home or self-care (01) ==
PROVIDERS: Emergency Provider Emergency Medicine; PCP Physician Assistant
DX: B02.29 Other postherpetic nervous system involvement (principal); C18.9 Malignant neoplasm of colon, unspecified; C78.7 Secondary malignant neoplasm of liver and intrahepatic bile duct; C78.6 Secondary malignant neoplasm of retroperitoneum and peritoneum; G62.0 Drug-induced polyneuropathy; T45.1X5A Adverse effect of antineoplastic and immunosuppressive drugs, initial encounter; I10 Essential (primary) hypertension; E78.2 Mixed hyperlipidemia; E03.9 Hypothyroidism, unspecified; N40.1 Benign prostatic hyperplasia with lower urinary tract symptoms; G47.33 Obstructive sleep apnea (adult) (pediatric); Z90.49 Acquired absence of other specified parts of digestive tract
CPT/HCPCS: 99281

== ENCOUNTER 2022-08-28 09:37 | Outpatient (CLI) | payer MEDICARE, SELFPAY ==
--- NOTE | ~2022-08-28 | CT_ITS ---
Clinical Indication: Colon cancer CT Scan of the Chest, Abdomen, and Pelvis with Contrast: Technique: Contiguous sections were acquired throughout the chest, abdomen, and pelvis after intraven ous administration of 100 cc of Omnipaque 350. Dose reduction technique was used on this scan by tc crawford automated exposure control and iterative reconstruction technique. The dose-length product (DL P) was 1754.72 mGy-cm. COMPARISON: 05/17/2022 Findings: There is no evidence of any significant mediastinal, hilar or axillary lymphadenopathy. The mediastin al soft tissues and vascular structures appear normal. There is no evidence of pleural or pericardial effusion. The lungs are clear. No pulmonary nodules or infiltrates are noted. Multiple hypodense hepatic masses are present. Several mildly increased, for example adjacent to the pelvis were given which now measures 2.5 cm in diameter (previously 1.3 cm). Numerous gallstones and mild gallbladder wall thickening are similar in appearance to prior exam. The spleen, pancreas, gallb ladder, adrenals and kidneys are within normal limits. No evidence of aortic aneurysm. No lymphaden opathy. No bowel obstruction or bowel wall thickening. Extensive peritoneal carcinomatosis and multiple pelvi c implants are similar to prior exam. Mass lesions are present in the rectus abdominis musculature, s uspicious for metastatic implants, similar to prior exam. Diffuse urinary bladder wall thickening is present. Prostate gland is unremarkable. No ascites. Impression: Extensive hepatic metastatic disease as well as peritoneal carcinomatosis and peritoneal/abdominal wa ll metastatic implants. Extent of disease is similar to prior exam, with probable mild progression of several hepatic lesions. Diffuse urinary bladder wall thickening. Correlate for cystitis. Cholelithiasis, similar to prior exam. Reviewed, dictated and finalized at location . Impression: Extensive hepatic metastatic disease as well as peritoneal carcinomatosis and p eritoneal/abdominal wall metastatic implants. Extent of disease is similar to p rior exam, with probable mild progression of several hepatic lesions. Diffuse urinary bladder wall thickening. Correlate for cystitis. Cholelithiasis, similar to prior exam.
[2022-08-28 10:09] LABS: Estimated Glomerular Filt Rate 49
== END 2022-08-28 09:38 | disposition home or self-care (01) ==
PROVIDERS: PCP Physician Assistant; Visit Provider Internal Medicine Medical Oncology
DX: C18.8 Malignant neoplasm of overlapping sites of colon (principal); C78.6 Secondary malignant neoplasm of retroperitoneum and peritoneum; K80.20 Calculus of gallbladder without cholecystitis without obstruction; N32.9 Bladder disorder, unspecified; C78.7 Secondary malignant neoplasm of liver and intrahepatic bile duct
CPT/HCPCS: 71260; 74177; Q9967

== ENCOUNTER 2022-10-22 08:37 | Outpatient (CLI) | payer MEDICARE, SELFPAY ==
--- NOTE | 2022-10-16 08:34 | PC.NURSE ---
Pre Radiology instructions Report to the outpatient leti blanchard on date __10/22/22___ at time __0900 for procedure Time: _1100___ YOU MAY BE MONITORED AT HOSPITAL FOR UP TO 4 HOURS AFTER YOUR PROCEDURE. A visitor will be allowed to accompany the patient into the hospital. You and your visitor will be asked to self-screen and do not enter if you have any COVID symptoms. A mask is OPTIONAL within the hospital. Patients are to have no food or drink 6 hours prior to procedure time (0500AM) Driving will be restricted after the procedure, you must have a person to drive you home. Labs will be drawn in preop area and once reviewed, you will be taken to radiology area for procedure. When the procedure is completed, you will be taken to outpatient where you will be monitored for several hours. You may have one visitor in this area. Other than holding anti-coagulants, patient may take other medication(s) as scheduled. Prior to your appointment date patients are instructed to hold anti-coagulants after discussing with ordering provider to stop. If unable to discontinue anti-coagulants please notify radiologist. ? No aspirin or warfarin (Coumadin) for 7 days prior to the procedure. ? No clopidogrel (Plavix), ticagrelor (Brilinta), prasugrel (Effient) or dabigatran (Pradaxa) for 5 days prior to the procedure. ? No rivaroxaban (Xarelto), apixaban (Eliquis), dipyridamole (Aggrenox or Persantine) or cilostazol (Pletal) for 2 days prior to the procedure. Medications to discontinue per physician: __N/A Date to take last dose: Please leave all valuables, including medications, at home the day of procedure. The hospital will not accept responsibility for valuables. Wear comfortable, loose fitting clothing.? Follow any additional instructions given to you from ordering provider. Telephone instructions given to _PT'S SPOUSE (EVIN)__and asked if any additional questions and then verbalized understanding. Patient advised to call scheduling provider office or registration scheduling [phone] if any additional questions.
[2022-10-16 08:35] VITALS: BMI 36.3
[2022-10-22] VITALS (10 sets, daily range): BP systolic 122–136; BP diastolic 80–94; PULSE 56–78; RESP 14–16; TEMP 36.8; O2SAT 95–100; BMI 38.0
--- NOTE | ~2022-10-22 | CT_ITS ---
EXAMINATION: CT biopsy abdomen percutaneous DATE: 10/22/2022 11:37 INDICATION: Overlapping malignant neoplasm of colon. TECHNIQUE: The procedure including the risks, benefits, and alternatives was discussed with the patie nt. Risks discussed included bleeding and infection. The patient verbalized understanding of the risk s and agreed to proceed. The skin overlying the abdomen was prepped and draped in usual sterile fash ion. Anesthetic was administered with 1% lidocaine subcutaneously. A 16 gauge outer needle was adva nced under CT guidance into the peritoneal mass. An 18 gauge core biopsy needle was then used to obta in 3 core biopsy specimens. The mA was adjusted according to patient size. Iterative reconstruction t echnique was employed. The dose-length product was 168.25 mGy-cm. The needle was removed and the entr y site was cleaned and dressed. There were no immediate complications. FINDINGS: CT images demonstrate the outer needle tip adjacent to a 4.7 x 3.1 cm peritoneal mass. IMPRESSION: 1. CT-guided core needle biopsy of a peritoneal mass. Reviewed, dictated and finalized at location A.
[2022-10-22 09:38] LABS: Platelet Count Result 152 k/mm3 (150-375)
[2022-10-22 10:03] LABS: INR 1.1; Prothrombin Time 14.2 Seconds (11.1-14.7)
== END 2022-10-22 14:14 | disposition home or self-care (01) ==
PROVIDERS: Radiology Diagnostic Radiology; PCP Physician Assistant; Referring Provider Internal Medicine Medical Oncology; Visit Provider Radiology Diagnostic Radiology
PROC: BW20ZZZ Computerized Tomography (CT Scan) of Abdomen (ICD-10-PCS; CPT 77012; principal; 2022-10-22 11:00)
DX: C18.8 Malignant neoplasm of overlapping sites of colon (principal)
CPT/HCPCS: 36415; 49180; 77012; 85049; 85610; 88305; 88342

== ENCOUNTER 2022-12-19 14:00 | Outpatient (RCR) | payer MEDICARE, SELFPAY ==
--- NOTE | 2022-09-24 16:01 | OPREHPOC ---
Outpatient Therapy Plan of Care This is a Multidisciplinary Plan of Care that may contain components documented by all disciplines (PT, OT, and ST.) PT Problem 1 PT Problem #1 Knowledge Deficit PT Goal 1 Goal Patient and independent with HEP Target Visit 6 PT Problem 2 PT Problem #2 Impaired Functional Mobil PT Goal 1 Goal Patient able to ambulate 150' with wheeled walker standby Target Visit 6 PT Problem 3 PT Problem #3 Impaired Strength PT Goal 1 Goal CHANELLE LE grossly 4/5 Target Visit 6
--- NOTE | 2022-09-24 16:01 | PTOPEVAL1 ---
Assessment and note entered by Narciso Myers, PT Evaluation Information Assessment Status Evaluation Diagnosis weakness, unsteady gait. Subjective Information Patient and report the patient gets blisters on the heels of his feet as a result of his chemo. When that happens patient is severely limited in his mobility for 7-10 days. He is then deconditioned from the time of immobility. Patient has finished home health physical therapy a week prior to this evaluation and has been in this clinic multiple times for strengthening issues. Reported Pain Level Pain Score 0: Self Report Assessment PT Clinical Summary Mamadou is a 77 year old male coming into the clinic with a diagnosis of weakness and unsteady gait. Patient has decreased strength in CHANELLE LE with foot drop on the L side also. Patient walks with CHANELLE feet externally rotated out with the L foot out more. R hip will drop in swing phase as I believe the L glute med is not holding it up in stance phase. Patient has a forward lean unable to stand erect with the walker needs to lean over from weak core. Physical therapy will work on strengthening and improved functional mobility, but patient and needs education to prevent continued rundowns from happening. Plan of Care Interventions Electrical Stimulation,Gait Training,Hot Pack/Cold Pack,Manual Therapy,Neuro Re-education,Patient/ Caregiver Education,Therapeutic Activities, Therapeutic Exercise,Ultrasound Other Interventions cupping, taping, IASTM PT Services Indicated Yes Treatment Frequency and 1-2x/wk for 4 weeks Duration These treatments will address the objective and functional deficits as defined above. The patient will be advanced safely and appropriately in order for the patient to progress towards his/her prior level of function. Additional exercises will be introduced and as well as a comprehensive home exercise program upon discharge, if needed, ?to ensure carryover of functional gains achieved in the clinic. This treatment plan has been reviewed and agreement upon by the patient.
--- NOTE | 2022-10-09 07:45 | PCPTNOTE ---
Pt. canceled appointment on 10/08/22 as he had blisters on his feet from his chemo treatment.
--- NOTE | 2022-10-28 10:08 | PTOPPROG ---
Assessment and note entered by Narciso Myers, PT Evaluation Information Assessment Status Progress Diagnosis weakness, unsteady gait. Subjective Information Patient reports he has had a bad weekend after her biopsy last week. Patient acknowledges that his participation and strength is really closely related to his medical status, but wants to continue therapy even if insurance denies it and he has to pay garcia because he does not have a long area to walk in and his bed is not as conducive to his supine exercises as the mats are here. Assessment PT Clinical Summary Mamadou is a 77 year old male coming into the clinic with a diagnosis of weakness and unsteady gait. Patient was evaluated on 09/24/22 and has attended 8 visits so far. He has met his gait and strength goal, but does not feel he will keep up with his exercises unless he comes in and he is worried about what happens when he is not medically well. Physical therapy will continue to work with the patient to improve resilience and patient is aware that insurance may to cover any further sessions. Plan of Care Interventions Gait Training,Manual Therapy,Neuro Re-education, Patient/Caregiver Education,Therapeutic Activities, Therapeutic Exercise Other Interventions IASTM, taping PT Services Indicated Yes Treatment Frequency and 1-2x/wk for 8 visits Duration These treatments will address the objective and functional deficits as defined above. The patient will be advanced safely and appropriately in order for the patient to progress towards his/her prior level of function. Additional exercises will be introduced and as well as a comprehensive home exercise program upon discharge, if needed, ?to ensure carryover of functional gains achieved in the clinic. This treatment plan has been reviewed and agreement upon by the patient.
--- NOTE | 2022-11-24 15:23 | PTOPPROG ---
Assessment and note entered by Narciso Myers, PT Evaluation Information Assessment Status Progress Diagnosis weakness unsteady gait Subjective Information Patient reports having a fall on Thursday out of his lawn chair in his garage. Patient and struggled, but were able to get him up without needing to call the ambulance. Patient has increased pain in his ribs and L LE since the fall . (therapist mentions getting it checked out, but patient reports he is seeing his doctor on Thursday and will talk to him if he is still having pain then.) Patient reports doing better walking in his hallway and doing standing exercises in the kitchen, but feels better when he comes in here for therapy, instead of doing it at home. Assessment PT Clinical Summary Mamadou is a 77 year old male coming into the clinic with a diagnosis of weakness and unsteady gait. Patient was evaluated on 09/24/22 and has attended 16 sessions. Patient has met his sit to stand goal and made progress with R ankle strength although did not meet goal. Patient's prognosis is still directly related to his medical condition . Patient reports he knows how to do his HEP and can walk at home, but it is better when he does it here and also knows insurance may not cover visits. Plan of Care Interventions Gait Training,Manual Therapy,Neuro Re-education, Patient/Caregiver Education,Therapeutic Activities, Therapeutic Exercise Other Interventions cupping, taping, IASTM PT Services Indicated Yes Treatment Frequency and 1-2 times a week for 8 visits. Duration These treatments will address the objective and functional deficits as defined above. The patient will be advanced safely and appropriately in order for the patient to progress towards his/her prior level of function. Additional exercises will be introduced and as well as a comprehensive home exercise program upon discharge, if needed, ?to ensure carryover of functional gains achieved in the clinic. This treatment plan has been reviewed and agreement upon by the patient.
--- NOTE | 2022-12-22 13:25 | PCPTNOTE ---
pt called and canceled today's reeval due to being ill.
--- NOTE | 2022-12-24 11:21 | PCPTNOTE ---
This treatment is being continued on visit number [id number]. Please see documentation on both accounts to view progress. Completed interventions, outcomes, and problems have been marked as Inactive to facilitate the copying of the Care plan routine for recurring accounts.
== END 2022-12-23 23:59 | disposition home or self-care (01) ==
LOC: ANHPT 14:00
PROVIDERS: PCP Physician Assistant; Visit Provider Internal Medicine Medical Oncology
DX: C18.8 Malignant neoplasm of overlapping sites of colon (principal); C78.6 Secondary malignant neoplasm of retroperitoneum and peritoneum; R53.1 Weakness; R26.81 Unsteadiness on feet
CPT/HCPCS: 97110; 97112; 97161; 97530

== ENCOUNTER 2022-12-26 08:33 | Outpatient (CLI) | payer MEDICARE, SELFPAY ==
--- NOTE | ~2022-12-26 | CT_ITS ---
Clinical Indication: Colon cancer CT Scan of the Chest, Abdomen, and Pelvis with Contrast: Technique: Contiguous sections were acquired throughout the chest, abdomen, and pelvis after intraven ous administration of 100 cc of Omnipaque 350. Dose reduction technique was used on this scan by tc moraing automated exposure control and iterative reconstruction technique. The dose-length product (DL P) was 1720.72 mGy-cm. COMPARISON: 08/28/2022 Findings: There is no evidence of any significant mediastinal, hilar or axillary lymphadenopathy. The mediastin al soft tissues and vascular structures appear normal. There is no evidence of pleural or pericardial effusion. There is mild dependent atelectatic change or possibly minimal bibasilar chronic interstitial disease . No suspicious pulmonary nodule seen. Multiple hepatic masses, many of them subcapsular in appearance, are similar to prior exam, compatibl e with metastatic disease. Numerous gallstones within distended gallbladder is similar in appearance to prior exam, with minimal gallbladder wall thickening. The spleen, pancreas, gallbladder, adrenals and kidneys are within normal limits. No evidence of aortic aneurysm. Multiple peritoneal masses are present, consistent with peritoneal metastatic disease/carcinomatosis, similar to prior exam. Largest masses in the anterior upper abdomen measuring up to approximately 9. 4 cm in transverse diameter (axial image 117). Multiple smaller implants are present, especially in t he left upper quadrant. There is a presumed metastatic implant in the right rectus abdominis muscle, measuring 6.4 cm in diameter, probably mildly increased from prior exam. Probable masses at the umbil icus, unchanged. There is evidence of prior partial right colectomy. No bowel obstruction evident. Probable mild diffuse urinary bladder wall thickening. Prostate gland and seminal vesicles are unrema rkable. No ascites. Impression: Hepatic metastatic disease, similar to prior exam. Numerous peritoneal metastatic implants/carcinomatosis, similar to prior exam. Right rectus abdominis muscle metastatic lesion, probably mildly increased from prior exam. Additiona l lesions at the umbilical region are similar to prior exam. Mild diffuse urinary bladder wall thickening. Correlate for cystitis. Cholelithiasis. Reviewed, dictated and finalized at location M. Impression: Hepatic metastatic disease, similar to prior exam. Numerous peritoneal metastatic implants/carcinomatosis, similar to prior exam. Right rectus abdominis muscle metastatic lesion, probably mildly increased from prior exam. Additional lesions at the umbilical region are similar to prior ex am. Mild diffuse urinary bladder wall thickening. Correlate for cystitis. Cholelithiasis.
[2022-12-26 09:24] LABS: Estimated Glomerular Filt Rate 49
== END 2022-12-26 08:34 | disposition home or self-care (01) ==
PROVIDERS: PCP Physician Assistant; Visit Provider Internal Medicine Medical Oncology
DX: C18.8 Malignant neoplasm of overlapping sites of colon (principal); C78.6 Secondary malignant neoplasm of retroperitoneum and peritoneum; K80.20 Calculus of gallbladder without cholecystitis without obstruction
CPT/HCPCS: 71260; 74177; Q9967

== ENCOUNTER 2023-01-31 08:37 | Emergency (ER) | payer MEDICARE, SELFPAY ==
[2023-01-31] VITALS (9 sets, daily range): BP systolic 96–125; BP diastolic 61–87; PULSE 75–111; RESP 17–24; TEMP 36.3; O2SAT 95–100
--- NOTE | 2023-01-31 08:51 | ECG_ITS ---
Measurements Intervals [place] Rate: 100 P: 11 [place]: 250 QRS: -25 QRSD: 93 T: -22 QT: 319 QTc: 412 Interpretive Statements SINUS TACHYCARDIA WITH FIRST DEGREE AV BLOCK BASELINE ARTIFACT LOW-VOLTAGE QRS IN PRECORDIAL LEADS MINIMAL VOLTAGE CRITERIA FOR LVH, CONSIDER NORMAL VARIANT NONSPECIFIC ST ABNORMALITY ABNORMAL ECG COMPARED TO ECG 05/17/2022 05:48:48 HEART RATE HAS INCREASED Electronically Signed On 01-31-2023 14:39:30 CDT by Rod Burch M.D.
[2023-01-31 09:04] LABS: Hematocrit 39.9 % (42.0-52.0); Hemoglobin 12.8 g/dL (14.0-18.0); Mean Corpuscular HGB Conc 32.1 g/dl (32-36); Mean Corpuscular Hemoglobin 30.4 pg (26-34); Mean Corpuscular Volume 94.8 fl (80-100); Mean Platelet Volume 9.4 fl (7.4-10.4); Platelet Count Result 153 k/mm3 (150-375); Red Blood Count 4.21 M/mm3 (4.6-6.20); Red Cell Distribution Width 19.8 % (11.5-14.5); White Blood Count 4.6 K/mm3 (4.5-10.0)
[2023-01-31 09:19] LABS: Alanine Aminotransferase 12 U/L (6-50); Albumin Level 3.3 g/dL (3.5-5.1); Alkaline Phosphatase 77 U/L (38-126); Anion Gap 11 mmol/L (8-16); Aspartate Amino Transferase 29 U/L (17-59); Blood Urea Nitrogen 13 mg/dL (9-20); Calcium 8.6 mg/dL (8.4-10.2); Carbon Dioxide 11 mmol/L (22-30); Chloride 113 mmol/L (98-107); Estimated Glomerular Filt Rate 39; Glucose 118 mg/dL (65-110); Potassium 3.2 mmol/L (3.4-5.0); Sodium 135 mmol/L (137-145)
[2023-01-31] MEDS: SODIUM CHLORIDE 0.9% IV 2,000 ML 999 ML IV CONT (09:37)
[2023-01-31] MEDS: ONDANSETRON INJ 4 MG/2 ML VIAL IV PUSH (09:37)
[2023-01-31 09:38] LABS: Band Neutrophils Percent 24 % (0-6); Eosinophils Absolute Manual 0.04 K/mm3 (0.02-0.5); Eosinophils Percent Manual 1 % (0-4); Lymphocytes Absolute Manual 0.73 K/mm3 (1.1-4.5); Monocytes Absolute Manual 0.96 K/mm3 (0.1-0.90); Monocytes Percent Manual 21 % (3-9); Neutrophils Absolute Manual 2.85 K/mm3 (1.3-6.7); Neutrophils Percent Manual 38 % (46-73); Platelet Estimate Adequate (Adequate); Schistocytes None Seen (NORMAL); Total Cells Counted 100
[2023-01-31 10:20] LABS: Magnesium 1.3 mg/dL (1.6-2.3)
[2023-01-31] MEDS: FAMOTIDINE 20 MG TABLET PO (10:43)
[2023-01-31] MEDS: CARBIDOPA/LEVODOPA 25/100 MG TABLET 1 TABLET PO (10:43)
--- NOTE | 2023-01-31 10:52 | PC.NURSE ---
Pt attempting to urinate at this time
[2023-01-31 10:59] LABS: Lactic Acid Reflex 0.7 mmol/L (0.7-2.0)
[2023-01-31 11:44] LABS: Appearance Urine Slightly Cloudy (Clear); Bilirubin Urine 1+ (Negative); Blood Urine Trace-lysed (Negative); Color Urine Yellow (Yellow); Glucose Urine UA Trace mg/dL (Negative); Ketones Urine Trace mg/dL (Negative); Leukocyte Esterase Ur Negative LEU/UL (Negative); Nitrate Urine Negative (Negative); Protein Urine 3+ mg/dL (Negative); Urobilinogen Urine 0.2 mg/dL (<2.0); pH Urine 5.5 (5.0-9.0)
[2023-01-31 11:56] LABS: Bacteria Urine None Seen /hpf; Granular Casts Urine Present /lpf; Hyaline Casts Urine Present /lpf; Need Manual Microscopic Reviewed; Non Pathogenic Casts >20; Squamous Epithelial Cell Urine Many /hpf (Few); WBC Urine 0-5 /hpf
[2023-01-31 12:06] LABS: Add Urine Microscopic? YES
--- NOTE | 2023-01-31 12:18 | ED.NAVMDI ---
HPI - Nausea/Vomiting/Diarrhea General Chief complaint: Nausea/Vomiting/Diarrhea Stated complaint: GI symptoms Time Seen by Provider: 01/31/23 08:51 History of Present Illness HPI Narrative: This is a 77-year-old male, with history of colon cancer, followed by oncology (Dr. Kimball) at [facility], who presents emergency department with diarrhea for the past week. The patient's notes approximately 1 week ago he was started on antibiotics for urinary tract infection and after approximately 2 days of treatment being can have pain multiple episodes of nonbloody diarrhea. She states he was seen in the outside ED yesterday and was discharged. This morning, the patient continued to have diarrhea and appeared more lethargic than usual. Related Data Home Medications Medication Instructions Recorded Confirmed gabapentin 400 mg capsule 1,200 mg PO BID 09/20/19 10/16/22 cholecalciferol (vitamin D3) 125 125 mcg PO DAILY 05/31/21 10/16/22 mcg (5,000 unit) tablet (Vitamin D3) diphenoxylate-atropine 2.5 1 tablet PO TID PRN Diarrhea 06/13/21 10/16/22 mg-0.025 mg tablet loperamide 2 mg capsule 2 mg PO Q6H PRN Nausea 09/10/21 10/16/22 famotidine 20 mg tablet (Pepcid) 20 mg PO Q12H 05/17/22 10/16/22 finasteride 5 mg tablet 5 mg PO DAILY 05/17/22 10/16/22 levothyroxine 88 mcg tablet 88 mcg PO DAILY@0630 05/17/22 10/22/22 pyridoxine (vitamin B6) 200 mg 200 mg PO DAILY 05/17/22 10/16/22 tablet,extended release carbidopa 25 mg-levodopa 100 mg 1 tablet PO TID 05/19/22 10/22/22 tablet Allergies Allergy/AdvReac Type Severity Reaction Status Date / Time atropine Allergy Unknown Unknown Verified 01/31/23 09:02 codeine Allergy Unknown Unknown Verified 01/31/23 09:02 sulfamethoxazole Allergy Unknown Nausea and Verified 01/31/23 09:02 [From Bactrim] Vomiting trimethoprim [From Bactrim] Allergy Unknown Nausea and Verified 01/31/23 09:02 Vomiting buspirone AdvReac Severe Anxiety Verified 01/31/23 09:02 lorazepam AdvReac Severe GETS Verified 01/31/23 09:02 RESTLESS AND COMBATIVE propoxyphene AdvReac Severe Nausea and Verified 01/31/23 09:02 Vomiting quetiapine [From Seroquel] AdvReac Severe other Verified 01/31/23 09:02 trazodone AdvReac Severe Other Verified 01/31/23 09:02 alprazolam AdvReac Unknown anxiety Verified 01/31/23 09:02 diazepam [From Valium] AdvReac Unknown Other Verified 01/31/23 09:02 Review of Systems Review of Systems: CONSTITUTIONAL: Denies fever, chills, or sweats. CARDIOVASCULAR: Denies chest pain, palpitations, or edema. RESPIRATORY: Denies cough or dyspnea. GASTROINTESTINAL: Nonbloody loose stools denies abdominal pain, nausea, vomiting GENITOURINARY: Denies dysuria or hematuria. SKIN: Denies rash or itching. MUSCULOSKELETAL: Denies back pain, joint pain, or myalgia. NEUROLOGIC: Denies headache, numbness, dizziness, or weakness. PSYCHIATRIC: Denies anxiety or depression. 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
[2023-01-31 12:25] LABS: Toxigenic C. Diff NEGATIVE (NEGATIVE)
[2023-01-31] MEDS: MAGNESIUM SULF 1 GM/D5W 100 ML 1 GM/100 ML BAG IVPB (12:29)
[2023-01-31] MEDS: KCL 40 MEQ/WATER 100 ML 100 ML 25 ML IVPB (12:30)
--- NOTE | 2023-01-31 13:07 | PC.NURSE ---
[facility] transfer center called and got some information about pt. They state they will call when they have a bed available at [facility].
[2023-01-31] MEDS: CENTRAL LINE FLUSH 10 ML IV PUSH (14:27)
== END 2023-01-31 15:24 | disposition short-term general hospital (02) ==
LOC: ANHED 09:23
PROVIDERS: Emergency Provider Preventive Medicine Aerospace Medicine; PCP Physician Assistant
DX: N17.9 Acute kidney failure, unspecified (principal); R19.7 Diarrhea, unspecified; I10 Essential (primary) hypertension; E03.9 Hypothyroidism, unspecified; E78.2 Mixed hyperlipidemia
CPT/HCPCS: 36415; 80053; 81001; 83605; 83735; 85025; 87493; 93005; 96361; 96365; 96366; 96368; 96375; 99285; A9270; J2405; J3475; J3480; J7030

== ENCOUNTER 2023-04-23 13:23 | Outpatient (CLI) | payer MEDICARE, SELFPAY ==
--- NOTE | ~2023-04-23 | CT_ITS ---
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 TECHNIQUE: Computed tomography (CT) of the chest, abdomen, and pelvis was performed with 100 mL Omnip aque 350 intravenous contrast. Automated exposure control and iterative reconstruction technique were employed. The dose-length product was 1840.53 mGy-cm. COMPARISON: CT chest, abdomen, and pelvis 12/26/2022 FINDINGS: CHEST CT: There is chronic widespread septal thickening in the lungs associated with mild groundglass opacities with a lower lung predominance. There is mild bilateral bronchiectasis with a lower lung predominanc e. No honeycombing. The heart size is normal. There are coronary artery calcifications. No pericardia l effusion. There is a right internal jugular port with tip in superior vena cava. There is bilateral gynecomastia. There are bridging endplate osteophytes at multiple levels in the spine, consistent wi th diffuse idiopathic skeletal hyperostosis (DISH). ABDOMEN/PELVIS CT: There are 4 masses in the liver. For example, a 4.4 cm mass in right hepatic lobe previously measured 2.9 cm. There are numerous peritoneal masses including numerous masses at the liver surface. For exa mple, a 2.9 cm peritoneal mass in left upper quadrant previously measured 2.1 cm. There are masses at the umbilicus and involving the right rectus abdominis muscles. The gallbladder is normal in size an d filled with gallstones. Gallbladder wall thickening is likely secondary to chronic cholecystitis. T he spleen, pancreas, adrenal glands are normal. Is cortical thinning of the kidneys. There are cysts in left kidney measuring up to 5.4 cm. There is chronic diffuse bladder wall thickening, which may be secondary to chronic outlet obstruction from the moderately enlarged prostate. There are changes of right hemicolectomy. There are no pathologically enlarged lymph nodes. There is no free intraperitone al fluid. There is lumbar levoscoliosis and severe spondylosis. IMPRESSION: 1. Worsened liver masses and peritoneal masses, consistent with metastatic disease. Reviewed, dictated and finalized at location E. CUTTER IMPRESSION: 1. Worsened liver masses and peritoneal masses, consistent with metastatic dise aguilar.
[2023-04-23 14:17] LABS: Estimated Glomerular Filt Rate 53
== END 2023-04-23 13:24 | disposition home or self-care (01) ==
PROVIDERS: PCP Physician Assistant; Visit Provider Internal Medicine Medical Oncology
DX: C78.6 Secondary malignant neoplasm of retroperitoneum and peritoneum (principal); C18.9 Malignant neoplasm of colon, unspecified
CPT/HCPCS: 71260; 74177; 99212; G0463; Q9967

== ENCOUNTER 2023-10-16 10:27 | Outpatient (CLI) | payer MEDICARE, SELFPAY ==
--- NOTE | ~2023-10-16 | CT_ITS ---
EXAMINATION: CT chest abdomen pelvis wo con DATE: 10/16/2023 10:51 INDICATION: Malignant neoplasm of colon. TECHNIQUE: Computed tomography (CT) of the chest, abdomen, and pelvis was performed without intraveno us contrast. Automated exposure control and iterative reconstruction technique were employed. The dos e-length product was 1645.04 mGy-cm. COMPARISON: CT 04/23/2023 FINDINGS: CHEST CT: There is chronic septal thickening in the lungs with a lower lung predominance associated with mild g roundglass opacities. There is mild bronchiectasis in the inferior lungs. There are calcified pleural plaques on the left. No pleural effusion. The heart size is normal. There are coronary artery calcif ications. No pericardial effusion. There is bilateral gynecomastia. There is a right subclavian port with tip in superior vena cava. Superior vena cava is small. There are bridging endplate osteophytes at multiple levels in the spine, consistent with diffuse idiopathic skeletal hyperostosis (DISH). ABDOMEN/PELVIS CT: There are multiple masses in the liver. For example, a 3.7 cm mass in segment VIII previously measure d 3.9 cm. A 3.4 cm mass in segment is unchanged. Again seen are multiple peritoneal masses. For ex ample, a 4.4 x 3.2 cm mass in left upper quadrant previously measured 3.7 x 2.0 cm. A 4.4 x 2.6 cm ma ss in right upper quadrant previously measured 4.8 x 2.2 cm. The gallbladder is filled with gallstone s. The spleen, pancreas, adrenal glands, and right kidney are normal. There is a 5.6 cm cyst in left kidney. There is diverticulosis of the colon without evidence of diverticulitis. There are changes of right hemicolectomy. There are no dilated loops of bowel. There is a left inguinal hernia containing fat. There are no pathologically enlarged lymph nodes. There is no free intraperitoneal fluid. There is severe lumbar spondylosis. IMPRESSION: 1. Stable liver masses and peritoneal masses, consistent with metastatic disease. Reviewed, dictated and finalized at location E. IMPRESSION: 1. Stable liver masses and peritoneal masses, consistent with metastatic diseas cynthia
== END 2023-10-16 10:28 | disposition home or self-care (01) ==
PROVIDERS: PCP Physician Assistant; Visit Provider Internal Medicine Medical Oncology
DX: C18.9 Malignant neoplasm of colon, unspecified (principal); C78.6 Secondary malignant neoplasm of retroperitoneum and peritoneum; K76.89 Other specified diseases of liver
CPT/HCPCS: 71250; 74176

== ENCOUNTER 2023-11-03 10:45 | Outpatient (RCR) | payer MEDICARE, SELFPAY ==
--- NOTE | 2023-09-29 15:33 | OPREHPOC ---
Outpatient Therapy Plan of Care This is a Multidisciplinary Plan of Care that may contain components documented by all disciplines (PT, OT, and ST.) PT Problem 1 PT Problem #1 Knowledge Deficit PT Goal 1 Goal *indep with HEP Target Visit 10 PT Problem 2 PT Problem #2 Pain PT Goal 1 Goal *monitor pain in L hip and leg during sessions Target Visit 10 PT Problem 3 PT Problem #3 Impaired Strength PT Goal 1 Goal increase LE strength to improve transfer and gait skills: 1* supine R LE exercises x 20 reps 2* supine L LE exercises x 15 reps 3* sit/stand from 18 seat with use of 1 UE 4* supine to sit transfer indep Target Visit 10 PT Problem 4 PT Problem #4 Impaired Functional Mobility PT Goal 1 Goal 1* 5 reps sit/stand time of 18 seconds, with stand up and let go of arm rest 2* 2 minute walking test distance of 150' 3* report NO falls Target Visit 10
--- NOTE | 2023-09-29 15:33 | PTOPEVAL1 ---
Assessment and note entered by Clemencia Quintero, PT Evaluation Information Assessment Status Evaluation Diagnosis weakness Onset April 2023 Subjective Information increase in weakness, have been hospitalized multiple times with pneumonia for 11 days; GI issues and medical issues with chemotherapy; complication from chemo with swallowing issues and feeding tube placed, now removed; is on a new chemo pill that is causing blood pressure issues. have had [facility] services, completed few weeks ago; have not had any falls in past 6 months Activity: short distances in home with wheeled walker, have 13 steps at home- able to perform; does all home tasks; able to get in/out tub seat, assist with washing his back; doing sitting and standing exercises at home; have ankle brace for L drop foot- have not been using due to wounds over heel; GOAL: walk better, get legs stronger; Reported Pain Level Pain Score Self Report Additional Pain Score Comments at times, have pain in L thigh and knee with movements 0-8/10 range of pain Assessment PT Clinical Summary Mamadou has the diagnosis of weakness. He has been hospitalized multiple times in the past 5 months and has started on a new chemo pill. His was present and supportive to pt--caregiving and assisting him. He has not had any falls in the past 6 months. And is using the wheeled walker for in home walking. 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 Skilled PT services are indicated to increase LE strength, transfer, gait and balance skills, with education for HEP and safety with mobility. Plan of Care Interventions Gait Training,Neuro Re-education,Patient/Caregiver
--- NOTE | 2023-10-20 12:30 | PCPTNOTE ---
Pt canceled due to illness.
--- NOTE | 2023-11-19 13:23 | PTOPDC ---
Assessment and note entered by Clemencia Quintero, PT Discharge Report Assessment Status Discharge - Pt Not Present Diagnosis weakness Onset April 2023 Subjective Information pt called and canceled all of the remaining appt, stated he was attending a day rehab program. Assessment PT Clinical Summary Discharge PT services due to pt attending a day rehab program. The goals were not addressed. Discharge PT services. Plan of Care PT Services Indicated No
== END 2023-11-19 17:11 | disposition home or self-care (01) ==
LOC: ANHPT 10:45
PROVIDERS: PCP Physician Assistant; Visit Provider Physician Assistant
DX: R53.1 Weakness (principal); G20.A1 Parkinson's disease without dyskinesia, without mention of fluctuations; C18.8 Malignant neoplasm of overlapping sites of colon
CPT/HCPCS: 97110; 97116; 97162; 97530

== ENCOUNTER 2024-01-18 16:23 | Outpatient (CLI) | payer MEDICARE, SELFPAY ==
--- NOTE | ~2024-01-18 | CT_ITS ---
EXAMINATION: CT chest abdomen pelvis wo con DATE: 01/18/2024 16:46 INDICATION: Malignant neoplasm of colon. TECHNIQUE: Computed tomography (CT) of the chest, abdomen, and pelvis was performed without intraveno us contrast. Automated exposure control and iterative reconstruction technique were employed. The dos e-length product was 1644.90 mGy-cm. COMPARISON: CT 10/16/2023 FINDINGS: CHEST CT: The lungs demonstrate mild atelectasis. There is mild bronchiectasis in the inferior lungs. There is a 9 mm nodule in right lower lobe. There is a 3 mm nodule in right lower lobe. There is an 8 mm nodul e in left lower lobe. There are calcified pleural plaques on the left. No pleural effusion. The heart size is normal. There are coronary artery calcifications. No pericardial effusion. There is a right subclavian port with tip in superior vena cava. There is bilateral gynecomastia. There are bridging e ndplate osteophytes at multiple levels in the spine, consistent with diffuse idiopathic skeletal hype rostosis (DISH). There is mild thoracic spondylosis. ABDOMEN/PELVIS CT: There are multiple hypodense masses in the liver measuring up to 3.5 cm. The gallbladder is distended and contains gallstones. The spleen, pancreas, and adrenal glands are normal. There are cysts in the kidneys measuring up to 5.3 cm on the left. There is diffuse bladder wall thickening, likely seconda ry to chronic outlet obstruction from the mildly enlarged prostate. There is a large volume of stool in the colon. There are no dilated loops of bowel. There are numerous peritoneal masses. There are no pathologically enlarged lymph nodes. There is no ascites. There is severe lumbar spondylosis. IMPRESSION: 1. Stable liver masses and peritoneal masses, consistent with metastatic disease. 2. Worsened pulmonary nodules, consistent with metastatic disease. Reviewed, dictated and finalized at location A. IMPRESSION: 1. Stable liver masses and peritoneal masses, consistent with metastatic diseas e. 2. Worsened pulmonary nodules, consistent with metastatic disease.
== END 2024-01-18 16:24 | disposition home or self-care (01) ==
PROVIDERS: PCP Physician Assistant; Visit Provider Internal Medicine Medical Oncology
DX: C18.9 Malignant neoplasm of colon, unspecified (principal); C78.6 Secondary malignant neoplasm of retroperitoneum and peritoneum; R91.8 Other nonspecific abnormal finding of lung field
CPT/HCPCS: 71250; 74176

== ENCOUNTER 2024-04-13 08:46 | Outpatient (CLI) | payer MEDICARE, SELFPAY ==
--- NOTE | ~2024-04-13 | CT_ITS ---
Clinical Indication: Colon cancer CT Scan of the Chest, Abdomen, and Pelvis with Contrast: Technique: Contiguous sections were acquired throughout the chest, abdomen, and pelvis after intraven ous administration of 100 cc of Omnipaque 350. Dose reduction technique was used on this scan by uti lizing automated exposure control and iterative reconstruction technique. The dose-length product (DL P) was 1358.86 mGy-cm. Comparison: 01/18/2024 Findings: There is no evidence of any significant mediastinal, hilar or axillary lymphadenopathy. The mediastin al soft tissues and vascular structures appear normal. No pericardial effusion. Minimal right pleural fluid present. No left pleural effusion.. 11 mm right basilar pulmonary nodule is minimally increased from prior exam (axial image 88). 1.1 cm left basilar pulmonary nodules mildly increased from prior exam (axial image 73). 9 mm anteromedial l eft upper lobe pulmonary nodules increased (axial image 64). 5 mm right upper lobe pulmonary nodule i s probably minimally increased (axial image 36). Hypodense hepatic parenchymal and numerous capsular/subcapsular masses are present, similar to prior exam, largest lesion measuring 4.3 cm in diameter (axial image 91). Multiple gallstones are present, unchanged. The spleen, pancreas, adrenals and kidneys are within normal limits. No evidence of aorti c aneurysm. No lymphadenopathy. No bowel obstruction or bowel wall thickening. Extensive peritoneal carcinomatosis, as was in the upp er abdomen, and essentially stable from prior exam. Anterior abdominal wall masses in the right side are present, with some coarse calcification, similar to prior exam. Stable small cystic mass or fluid collection at the umbilical region Diffuse urinary bladder wall thickening present. Prostate gland unremarkable. No ascites. Impression: Pulmonary nodules are mildly increased in size from prior exam, as detailed above, compatible mild in terval progression of pulmonary metastatic disease. Hepatic parenchymal and capsular subtle subcapsular metastatic disease is similar to prior exam. Exte nsive peritoneal carcinomatosis and anterior abdominal wall metastatic lesions are also essentially s table from prior exam. Stable small cystic mass or fluid collection at the umbilicus. Probable cystitis. Minimal right pleural effusion. Reviewed, dictated and finalized at location M. ENTER Impression: Pulmonary nodules are mildly increased in size from prior exam, as detailed abo ve, compatible mild interval progression of pulmonary metastatic disease. Hepatic parenchymal and capsular subtle subcapsular metastatic disease is simil ar to prior exam. Extensive peritoneal carcinomatosis and anterior abdominal wa ll metastatic lesions are also essentially stable from prior exam. Stable small cystic mass or fluid collection at the umbilicus. Probable cystitis. Minimal right pleural effusion.
[2024-04-13 09:28] LABS: Estimated Glomerular Filt Rate > 60
== END 2024-04-13 08:47 | disposition home or self-care (01) ==
PROVIDERS: PCP Physician Assistant; Visit Provider Internal Medicine Medical Oncology
DX: C78.6 Secondary malignant neoplasm of retroperitoneum and peritoneum (principal); C18.9 Malignant neoplasm of colon, unspecified
CPT/HCPCS: 71260; 74177; 99212; G0463; Q9967

== ENCOUNTER 2024-07-14 12:43 | Outpatient (CLI) | payer MEDICARE, SELFPAY ==
--- NOTE | ~2024-07-14 | CT_ITS ---
Clinical Indication: Colon cancer CT Scan of the Chest, Abdomen, and Pelvis without Contrast: Technique: Contiguous sections were acquired throughout the chest, abdomen, and pelvis without IV con trast administration. Dose reduction technique was used on this scan by utilizing automated exposure control and iterative reconstruction technique. The dose-length product (DLP) was 1835.08 mGy-cm. Comparison: 04/13/2024 Findings: There is no evidence of any significant mediastinal, hilar or axillary lymphadenopathy. The mediastin al soft tissues appear normal. There is no evidence of pleural or pericardial effusion. 6 mm right upper lobe pulmonary nodule present (axial image 51). 6 mm right middle lobe nodule presen t (axial image 81). 1 cm right basilar nodule present (axial image 86). Additional right basilar nodu le measures 1.7 cm (axial image 92). Left basilar pulmonary nodule measures 1.4 cm (axial image 77). 1.2 cm nodule noted in the lingula (axial images 82). Gallbladder is distended with numerous stones present. Multiple hypodense hepatic masses are compatib le with metastatic disease, largest lesion measuring 4.4 cm towards the upper liver. The spleen, panc reas, adrenals and kidneys are within normal limits. No evidence of aortic aneurysm. No lymphadenop athy. No bowel obstruction or bowel wall thickening. Prior partial right colectomy. Extensive peritoneal im plants and/or peritoneal carcinomatosis is present, especially left upper quadrant and just inferior to the left hepatic lobe, similar to prior exam.. Stable mass at the anterior abdominal wall just rig ht of midline measuring 3.6 cm in diameter (axial image 156). Additional larger mass at the inferior right abdominal wall anteriorly measuring 8.3 x 5.3 cm, with coarse calcifications within it. Stable small cystic mass just deep to the anterior abdominal wall at the umbilicus measuring 2.[address] with peripheral calcification (axial image 218). Probable mild diffuse urinary bladder wall thickening. Prostate gland unremarkable. No ascites. Impression: Extensive metastatic disease, with pulmonary metastases, hepatic metastases, and extensive peritoneal carcinomatosis/peritoneal implants. Pulmonary metastatic disease is mildly progressed. Hepatic and p eritoneal disease is overall very similar to prior exam. Anterior abdominal wall masses, similar to p rior exam, which could reflect positional metastatic disease. Cholelithiasis. Possible cystitis. Correlate with urinalysis. Reviewed, dictated and finalized at location M. Impression: Extensive metastatic disease, with pulmonary metastases, hepatic metastases, an d extensive peritoneal carcinomatosis/peritoneal implants. Pulmonary metastatic disease is mildly progressed. Hepatic and peritoneal disease is overall very s imilar to prior exam. Anterior abdominal wall masses, similar to prior exam, wh ich could reflect positional metastatic disease. Cholelithiasis. Possible cystitis. Correlate with urinalysis.
--- OUTSIDE RECORDS SUMMARY | 2024-07-14 13:00 | XMS_ITS | Clinical Summary ---
Author Organization [facility] Address [address] [place] [id number] Care Team Providers Care Enrollment Counselor Name Role Phone Geovanny Moreau Primary Care Provider [phone] Social History Tobacco Use Types Packs/Day Years Used Date Smoking Tobacco: Never Assessed Sex and Gender Information Value Date Recorded Sex Assigned at Not on file Legal Sex Male 1:27 PM CDT Gender Identity Not on file Sexual Orientation Not on file Plan of Treatment Health Maintenance Due Date Last Done Comments Annual Medicare Wellness Visit 2009 Zoster Vaccines (2 of 3) 01/11/2013 013, 08/16/2012 RSV Immunization or 60+ Years (1 - 1-dose 75+ series) 06/20/2019 Pneumococcal Vaccine: 65+ Years (2 of 2 - PPSV23 or PCV20) 02/27/2021 02/28/2020 COVID-19 Vaccine (3 - 2023-2 5 season) 2023 03/20/2021, 08/28/2020 DTaP, Tdap and Td Vaccines ( 2 - Td or Tdap) 05/07/2031 05/07/2021 Meningococcal B Vaccine Aged Out No l onger eligible based on patient's age to complete this topic Meningococcal Vaccine Aged Out No citlali cha eligible based on patient's age to complete this topic RSV Immunizations Under 20 Months Aged Out No longer eligible b ased on patient's age to complete this topic Insurance [facility] Care Teams Enrollment Counselor Relationship Specialty Start Date End Date Geovanny Moreau PA [address] [place] [address] PCP - General PHYSICIAN [employer] 07/09/21
--- OUTSIDE RECORDS SUMMARY | 2024-07-14 13:00 | XMS_ITS ---
Author Name Chris Brice Vito Address [address] [place] [address] Phone [phone] Organization [facility] Address [address] [place] [address] Phone [phone] Care Team Providers Care Van Helper Name Role Phone Chris Brice Unavailable GhanshyamSylvester Unavailable Functional Status No Results Mental Status No Results Allergies and Intolerances Name Onset Date Reaction Severity alprazolam (Allergy) ThuMay 10 16:30:00 EST 202 2 propoxyphene (Allergy) ThuMay 10 16:30:00 EST 2 022 lorazepam (Allergy) ThuMay 10 16:30:00 EST 2021 codeine (Allergy) ThuMay 10 16:30:00 EST 2021 atropine (Allergy) ThuMay 10 16:30:00 EST 2021 Medications Medication Directions Start Date End Date TUBErsoL 5 tub. unit/0.1 mL intradermal injection solution 0.1 ml VIAL (ML) Intradermal 1 Time Weekly for 2 Weeks ThuJun 12 16:00:00 EST 2021Jun 15 01:00:00 EST 2021 TUBErsoL 5 tub. unit/0.1 mL intradermal injection solution Read Results VIAL (ML) Other 1 Time Weekly for 2 Weeks ThuJun 12 17:00:00 EST 2021Jun 15 01:00:00 2021 hydrOXYzine HCL 10 mg tablet 1 tablet TABLET Oral PRN 3 Times Daily for 90 Weeks for anxiety ThuJun 10 14:00:00 EST 2021Jun 15 01:00:00 EST 2021 diphenoxylate-atropine 2.5 mg-0.025 mg tablet 1-2 tabs TABLET Oral PRN 4 Times Daily diarrhea ThuJun 06 01:00:00 EST 2021Jun 15 01:00:00 EST 2021 amoxicillin 875 mg-potassium clavulanate 125 mg tablet 1 TABLET TABLET Enteral Tube Every 12 Hours for 7 Days DX: INFECTION ThuJun 04 14:00:00 2021Jun 11 13:59:00 EST 2021 carbidopa 25 mg-levodopa 100 mg tablet 2 TABLETS TABLET Enteral Tube 4 Times Daily ThuJun 04 18:00:00 2021Jun 15 01:00:00 EST 2021 furosemide 40 mg/5 mL (8 mg/mL) oral solution 5ML SOLUTION, ORAL Enteral Tube Every Morning DX: EDEMA (5ML= 40MG) ThuJun 04 14:00:00 2021Jun 15 01:00:00 EST 2021 lidocaine 5 % topical patch 1 PATCH ADHE SIVE PATCH, MEDICATED Topical 1 Time Daily DX: PAIN*ON FOR 12 HOURS, OFF FOR 12 HOURS* ThuJun 04 14:00:00 EST 2021Jun 15 01:00:00 EST 2021 scopolamine 1 mg over 3 days transdermal patch 1 PATCH PATCH,TRANSDERMAL 3 DAY Transdermal Every 3 Days DX: NAUSEA/VOMITING ThuJun 04 18:00:00 EST 2021Jun 15 01:00:00 EST 2021 Mapap Arthritis Pain 650 mg tablet,extended release 1 TABLET TABLET, EXTENDED RELEASE Enteral Tube PRN Every 6 Hours FOR ARTHRITIS PAIN *DO NOT EXCEED 3GM APAP/DAY FROM ALL SOURCES* ThuJun 04 14:00:00 2021Jun 15 01:00:00 EST 2021 amLODIPine 10 mg tablet 1 TABLET TABLET Enteral Tube 1 Time Daily ThuJun 04 18:00:00 EST 2021Jun 15 01:00:00 EST 2021 cholecalciferol (vitamin D3) 125 mcg (5,000 unit) tablet 1 TABLET TABLET Enteral Tube 1 Time Daily ThuJun 04 18:00:00 EST 2021Jun 15 01:00:00 EST 2021 famotidine 20 mg tablet 1 TABLET TABLET Enteral Tube 2 Times Daily ThuJun 04 14:00:00 EST 2021Jun 15 01:00:00 EST 2021 ferrous sulfate 220 mg (44 mg iron)/5 mL oral elixir 7.5ML ELIXIR Enteral Tube Hour Of Sleep DX: ANEMIA (7.5ML= 330MG) ThuJun 04 14:00:00 EST 2021Jun 15 01:00:00 EST 2021 finasteride 5 mg tablet 1 TABLET TABLET Enteral Tube 1 Time Daily ThuJun 04 14:00:00 EST 2021 Mar 01:00:00 EST 2021 gabapentin 400 mg capsule 1 CAPSULE CAPS ULE Enteral Tube 2 Times Daily DX: NEUROPATHY ThuJun 04 19:00:00 EST 2021Jun 15 01:00:00 EST 2021 levothyroxine 88 mcg tablet 1 TABLET TAB LET Enteral Tube 1 Time Daily ThuJun 04 14:00:00 EST 2021Jun 15 01:00:00 EST 2021 melatonin 5 mg tablet 1 TABLET TABLET Or al PRN Hour Of Sleep ThuJun 04 14:00:00 2021Jun 15 01:00:00 EST 2021 Osmolite 1.5 Juanjose 0.06 gram-1.5 kcal/mL oral liquid 380 ml LIQUID (ML) Oral 4 Times Daily ThuJun 04 19:00:00 EST 2021Jun 15 01:00:00 EST 2021 furosemide 20 mg tablet 1.5 tabs TABLET Oral 1 Time Daily Thu 16 13:00:00 EST 2021 22 01:00:00 EST 2021 levothyroxine 88 mcg tablet 88 mcg TABLE T Oral 1 Time Daily Hypothyroidism Thu 15 16:00:00 EST 2021 22 01:00:00 EST 2021 Ambien 5 mg tablet 1 tablet TABLET Oral 1 Time Daily Thub 14 19:00:00 EST 2021 Mon b 14 14:59:00 EST 2021 carbidopa 25 mg-levodopa 100 mg tablet 1 tablet TABLET Enteral Tube 4 Times Daily Thub 14 15:00:00 EST 2021b 22 01:00:00 EST 2021 Ambien 5 mg tablet 1 tablet TABLET Ente ral Tube 1 Time Daily Thub 14 15:00:00 EST 2021u b 17 14:09:00 EST 2021 Vitamin D3 125 mcg (5,000 unit) tablet 1 tablet TABLET G-tube 1 Time Daily Fri b 11 19:00:00 EST 2021b 22 01:00:00 EST 2021 ergocalciferol (vitamin D2) 1,250 mcg (50,000 unit) capsule 1 capsule CAPSULE Enteral Tube 1 Time Weekly ThuMay 15 15:00:00 2021 11 16:46:00 EST 2021 TUBErsoL 5 tub. unit/0.1 mL intradermal injection solution Read Results VIAL (ML) Other 1 Time Weekly for 2 Weeks ThuMay 14 01:00:00 2021May 28 00:59:00 EST 2021 Osmolite 1.5 Juanjose 0.06 gram-1.5 kcal/mL oral liquid 380 ml LIQUID (ML) G-tube 4 Times Daily Bolus feed 380 ml Osmolite 1.5 QID Flush after each feed 200 ml water ThuMay 14 14:00:00 2021May 28 01:00:00 EST 2021 gabapentin 300 mg capsule 900mg CAPSULE G-tube 2 Times Daily Neuropathy ThuMay 14 16:00:00 EST 2021May 28 01:00:00 EST 2021 Tylenol Arthritis Pain 650 mg tablet,extended release 1-2 tablets TABLET, EXTENDED RELEASE Oral PRN Every 6 Hours Pain ThuMay 14 18:00:00 2021May 15 00:20:00 2021 Tylenol Arthritis Pain 650 mg tablet,extended release 1-2 tablets TABLET, EXTENDED RELEASE Oral PRN Every 6 Hours Pain. NOt to exceed 4 grams in a 24 hour period. ThuMay 15 00:19:00 2021May 28 01:00:00 EST 2021 amLODIPine 10 mg tablet 10mg TABLET Oral 1 Time Daily for 1 Day HTN Sun May 12 07:00:00 2021 Mon May 13 06:59:00 EST 2021 amLODIPine 10 mg tablet 10mg TABLET Oral 1 Time Daily HTN Sun May 12 17:00:00 EST 2021May 28 01:00:00 EST 2021 TUBErsoL 5 tub. unit/0.1 mL intradermal injection solution 0.1 ml VIAL (ML) Intradermal 1 Time Weekly for 2 Weeks ThuMay 11 13:00:00 EST 2021 Sat May 25 12:59:00 EST 2021 levothyroxine 88 mcg tablet 1 tablet TAB LET Enteral Tube 1 Time Daily ThuMay 11 19:00:00 EST 2021May 21 16:14:00 EST 2021 melatonin 5 mg chewable tablet 1 tablet TABLET,CHEWABLE Enteral Tube PRN 1 Time Daily for sleep ThuMay 10 19:00:00 EST 2021May 28 01:00:00 EST 2021 gabapentin 400 mg capsule 1 capsule CAPS ULE Enteral Tube 2 Times Daily Sat b 19:00:00 EST 2021b 08 16:04:00 EST 2021 carbidopa 25 mg-levodopa 100 mg tablet 1 tablet TABLET Enteral Tube 3 Times Daily ThuMay 10 19:00:00 EST 2021 Mon Feb 14 14:58:00 EST 2021 loperamide 2 mg capsule 1 capsule CAPSUL E Enteral Tube PRN Every 4 Hours for diarrhea ThuMay 10 19:00:00 EST 2021May 28 01:00:00 EST 2021 metoclopramide 10 mg disintegrating tablet 1 tablet TABLET,DISINTEGRATING Enteral Tube 2 Times Daily Sat b 19:00:00 EST 2021May 28 01:00:00 EST 2021 furosemide 20 mg tablet 30mg TABLET Ente ral Tube 1 Time Daily Sat b 19:00:00 EST 2021 Feb 16 13:57:00 EST 2021 methylphenidate 10 mg tablet 1 tablet TABLET Enteral Tube 2 Times Daily ThuMay 10 19:00:00 EST 2021May 10 21:18:00 EST 2021 diphenoxylate-atropine 2.5 mg-0.025 mg tablet 1 tablet TABLET Enteral Tube PRN 3 Times Daily use lomotil first, then imodium for diarrhea ThuMay 10 19:00:00 EST 2021May 28 01:00:00 EST 2021 finasteride 5 mg tablet 1 tablet TABLET Enteral Tube 1 Time Daily Sat b 19:00:00 EST 2021May 28 01:00:00 EST 2021 Tylenol Arthritis Pain 650 mg tablet,extended release 1 tablet TABLET, EXTENDED RELEASE Enteral Tube PRN Every 6 Hours ThuMay 10 19:00:00 EST 2021b 08 18:45:00 EST 2021 ferrous sulfate 220 mg (44 mg iron)/5 mL oral solution 220 mg SOLUTION, ORAL Enteral Tube 1 Time Daily ThuMay 10 19:00:00 EST 2021May 28 01:00:00 EST 2021 famotidine 20 mg tablet 1 tab TABLET G-t ube 2 Times Daily ThuMay 10 22:00:00 EST 2021 Tue May 28 01:00:00 EST 2021 nystatin 100,000 unit/gram topical powder as directed POWDER (GRAM) Topical 2 Times Daily for 14 Days ThuMay 11 01:00:00 EST 2021 Sat May 25 00:59:00 EST 2021 Problems Active Concerns * Personal history of other malignant neoplasm of large intestine* Code: * Start Date: ThuMay 10 00:00:00 EST 2021 * End Date: * Text: * Acquired absence of other specified parts of digestive tract* Code: * Start Date: ThuMay 10 00:00:00 EST 2021 * End Date: * Text: * Encounter for attention to gastrostomy* Code: * Start Date: ThuMay 10 00:00:00 EST 2021 * End Date: * Text: * Unspecified fall, subsequent encounter* Code: * Start Date: ThuMay 10 00:00:00 EST 2021 * End Date: * Text: * Pain in right shoulder* Code: * Start Date: ThuMay 10 00:00:00 EST 2021 * End Date: * Text: * Essential (primary) hypertension* Code: * Start Date: ThuMay 10 00:00:00 EST 2021 * End Date: * Text: * Benign prostatic hyperplasia without lower urinary tract symptoms* Code: * Start Date: ThuMay 10 00:00:00 EST 2021 * End Date: * Text: * Parkinson's disease* Code: * Start Date: ThuMay 10 00:00:00 EST 2021 * End Date: * Text: * Essential tremor* Code: * Start Date: ThuMay 10 00:00:00 EST 2021 * End Date: * Text: * Other symptoms and signs involving cognitive functions and awareness* Code: * Start Date: ThuMay 10 00:00:00 EST 2021 * End Date: * Text: * Obstructive sleep apnea (adult) (pediatric)* Code: * Start Date: ThuMay 10 00:00:00 EST 2021 * End Date: * Text: * Hypothyroidism, unspecified* Code: * Start Date: ThuMay 10 00:00:00 EST 2021 * End Date: * Text: * Secondary malignant neoplasm of liver and intrahepatic bile duct* Code: * Start Date: ThuMay 10 00:00:00 EST 2021 * End Date: * Text: * Drug-induced polyneuropathy* Code: * Start Date: ThuMay 10 00:00:00 EST 2021 * End Date: * Text: * Adverse effect of antineoplastic and immunosuppressive drugs, subsequent encounter* Code: * Start Date: ThuMay 10 00:00:00 2021 * End Date: * Text: * Diarrhea, unspecified* Code: * Start Date: ThuMay 10 00:00:00 EST 2021 * End Date: * Text: * Mixed hyperlipidemia* Code: * Start Date: ThuMay 10 00:00:00 EST 2021 * End Date: * Text: * Gastro-esophageal reflux disease without esophagitis* Code: * Start Date: ThuMay 10 00:00:00 EST 2021 * End Date: * Text: * Spondylosis without myelopathy or radiculopathy, cervical region* Code: * Start Date: ThuMay 10 00:00:00 2021 * End Date: * Text: * Other urogenital candidiasis* Code: * Start Date: ThuMay 10 00:00:00 EST 2021 * End Date: * Text: * Hypokalemia* Code: * Start Date: ThuMay 10 00:00:00 EST 2021 * End Date: * Text: * Unspecified injury of head, subsequent encounter* Code: * Start Date: ThuMay 10 00:00:00 2021 * End Date: * Text: * Polyosteoarthritis, unspecified* Code: * Start Date: ThuMay 10 00:00:00 EST 2021 * End Date: * Text: * Secondary malignant neoplasm of retroperitoneum and peritoneum* Code: * Start Date: ThuMay 10 00:00:00 EST 2021 * End Date: * Text: * Encounter for adjustment and management of vascular access device* Code: * Start Date: ThuMay 10 00:00:00 EST 2021 * End Date: * Text: * Lesion of ulnar nerve, right upper limb* Code: * Start Date: ThuMay 10 00:00:00 EST 2021 * End Date: * Text: * Unspecified superficial injury of left great toe, subsequent encounter* Code: * Start Date: ThuMay 10 00:00:00 EST 2021 * End Date: * Text: * Other cholelithiasis without obstruction* Code: * Start Date: ThuMay 10 00:00:00 EST 2021 * End Date: * Text: * Vitamin D deficiency, unspecified* Code: * Start Date: ThuMay 10 00:00:00 2021 * End Date: * Text: * Abnormal weight loss* Code: * Start Date: ThuMay 10 00:00:00 2021 * End Date: * Text: * Insomnia due to other mental disorder* Code: * Start Date: ThuMay 10 00:00:00 EST 2021 * End Date: * Text: * Other specified disorders of bone density and structure, unspecified site* Code: * Start Date: ThuMay 10 00:00:00 EST 2021 * End Date: * Text: * Pneumonia, unspecified organism* Code: * Start Date: ThuJun 04 00:00:00 2021 * End Date: * Text: * Urinary tract infection, site not specified* Code: * Start Date: ThuJun 04 00:00:00 EST 2021 * End Date: * Text: * Hypertensive heart disease with heart failure* Code: * Start Date: ThuJun 04 00:00:00 EST 2021 * End Date: * Text: * Benign prostatic hyperplasia with lower urinary tract symptoms* Code: * Start Date: ThuJun 04 00:00:00 EST 2021 * End Date: * Text: * Heart failure, unspecified* Code: * Start Date: ThuJun 04 00:00:00 2021 * End Date: * Text: * Metabolic encephalopathy* Code: * Start Date: ThuJun 04 00:00:00 EST 2021 * End Date: * Text: * Iron deficiency anemia, unspecified* Code: * Start Date: ThuJun 04 00:00:00 EST 2021 * End Date: * Text: * Dizziness and giddiness* Code: * Start Date: ThuJun 04 00:00:00 EST 2021 * End Date: * Text: * Primary osteoarthritis, unspecified ankle and foot* Code: * Start Date: ThuJun 04 00:00:00 EST 2021 * End Date: * Text: Reason for Referral Past Medical History Resolved Concerns * Problem Insomnia, unspecified* Code: * Start Date: ThuMay 10 00:00:00 EST 2021 * End Date: ThuMay 21 00:00:00 2021
== END 2024-07-14 12:44 | disposition home or self-care (01) ==
PROVIDERS: PCP Physician Assistant; Visit Provider Internal Medicine Medical Oncology
DX: C18.9 Malignant neoplasm of colon, unspecified (principal); C78.6 Secondary malignant neoplasm of retroperitoneum and peritoneum; K80.20 Calculus of gallbladder without cholecystitis without obstruction
CPT/HCPCS: 71250; 74176

== ENCOUNTER 2024-09-23 14:27 | Outpatient (CLI) | payer MEDICARE, SELFPAY ==
--- NOTE | ~2024-09-23 | XR_ITS ---
HISTORY: Acute pain of lt shoulder X 1MONTH , NO KNOWN INJURY COMPARISON: None TECHNIQUE: 4 views of the left shoulder were performed FINDINGS: No acute fracture. The glenohumeral and acromioclavicular joint space is maintained The visualized portion of the adjacent left lung is clear. The humeral head is well seated within the glenoid fossa. Extra-articular osseous bodies are identified adjacent to the greater trochanter for which calcific t endinitis is suspected. IMPRESSION: No acute fracture or anterior dislocation. Findings for which calcific tendinitis is suspected. Reviewed, dictated and finalized at location A.
--- NOTE | ~2024-09-23 | XR_ITS ---
Cervical Spine: AP, lateral, open-mouth views Clinical History: Pain Findings: The normal lordotic curve is maintained. The vertebral bodies and posterior elements appea r intact. The intervertebral disc spaces are well maintained. Mild facet degenerative changes are pr esent. Pre-vertebral soft tissues are unremarkable. Impression: Mild facet arthropathy in the cervical spine. Reviewed, dictated and finalized at [facility]. Impression: Mild facet arthropathy in the cervical spine.
== END 2024-09-23 14:28 | disposition home or self-care (01) ==
PROVIDERS: PCP Physician Assistant; Visit Provider Internal Medicine Medical Oncology
DX: M47.812 Spondylosis without myelopathy or radiculopathy, cervical region (principal); M25.512 Pain in left shoulder
CPT/HCPCS: 72040; 73030

== ENCOUNTER 2024-10-13 14:30 | Outpatient (RCR) | payer MEDICARE, SELFPAY ==
--- NOTE | 2024-09-07 15:24 | OPREHPOC ---
Outpatient Therapy Plan of Care This is a Multidisciplinary Plan of Care that may contain components documented by all disciplines (PT, OT, and ST.) PT Problem 1 PT Problem #1 Knowledge Deficit PT Goal 1 Goal / Goal Update *independent with HEP Target Visit 10 PT Problem 2 PT Problem #2 Pain PT Goal 1 Goal / Goal Update 1* pt report pain at worst of 6/10 2* radicular pain at worst into L LE to knee Target Visit 10 PT Problem 3 PT Problem #3 Impaired Functional Mobility PT Goal 1 Goal / Goal Update 1* 2 minute walking test distance of 150' 2* sit/stand with use of 1 UE
--- NOTE | 2024-09-07 15:24 | PTOPEVAL1 ---
Assessment and note entered by Clemencia Quintero PT Evaluation Information Assessment Status Evaluation ICD-10 Condition Codes (PT) Radiculopathy, lumbar region M54.16,weakness,decrease mobility Onset June 2024 Subjective Information chronic issues with back pain; gradual increase in back pain, without injury to back; was told by one of the dr that he has a bad back and needs surgery, but has cancer and chemo, so cannot do any surgery activity: home with , use wheeled walker for in home walking; use w/c out of home; have 13 steps at home with bilateral hand rails; requires assist from for bathing, dressing; she does all home tasks and transportation; Reported Pain Level Pain Score Self Report Additional Pain Score Comments pain range in the past week: 4-8/10; into L LE to ankle intermittent; increase pain: move L hip; when first wake up in AM, change position in bed/ supine to sitting decrease pain: change positions, heat, over the counter pain meds sleeping-is not disrupted due to back pain Assessment PT Clinical Summary Mamadou has the diagnosis of back pain, intermittent, radicular into L LE to ankle. He has decreased walking and mobility due to the pain. Back Index self rating of 68% limitation activity level. He uses a wheeled walker for in home distances and w/ c out of home. His assists with bathing, dressing and does all the home tasks. He also reports decreased memory with chemo brain. Josiane is very supportive to pt. 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 Chronic back pain and lumbar surgery. With the evaluation: he has pain with L hip flexion, IR and ER motions; decrease strength of trunk and hips; 2 minute walking test distance of 50' with wheeled walker, stopping due to increase pain in back and L leg; all transfers sit/stand, supine/sit and walking increase his pain. Skilled PT services are indicated for modalities to decrease pain, therapeutic exercises to increase strength of LE and trunk with education for HEP, mobility skills and pain control. Plan of Care Interventions Hot Pack/Cold Pack,Manual Therapy,Patient/ Caregiver Education,Therapeutic Activities, Therapeutic Exercise,Other Other Interventions taping PT Services Indicated Yes Treatment Frequency and 1-2x/wk for 10 visits Duration These treatments will address the objective and functional deficits as defined above. The patient will be advanced safely and appropriately in order for the patient to progress towards his/her prior level of function. Additional exercises will be introduced and as well as a comprehensive home exercise program upon discharge, if needed, ?to ensure carryover of functional gains achieved in the clinic. This treatment plan has been reviewed and agreement upon by the patient.
--- NOTE | 2024-09-23 14:17 | PCPTNOTE ---
Pt cancelled d/t a family medical issue, per front office. AKS
--- NOTE | 2024-10-06 11:59 | PCPTNOTE ---
Pt canceled due to illness.
--- NOTE | 2024-10-13 15:24 | OPREHPOC ---
Outpatient Therapy Plan of Care This is a Multidisciplinary Plan of Care that may contain components documented by all disciplines (PT, OT, and ST.) PT Problem 1 PT Problem #1 Knowledge Deficit PT Goal 1 Goal / Goal Update *independent with HEP 10-13-24 d/c goal met Target Visit 10 Progress Met PT Problem 2 PT Problem #2 Pain PT Goal 1 Goal / Goal Update 1* pt report pain at worst of 6/10 2* radicular pain at worst into L LE to knee 10-13-24 d/c goals not met; pain to 8/10 and into L ankle Target Visit 10 Progress Not Met PT Problem 3 PT Problem #3 Impaired Functional Mobility PT Goal 1 Goal / Goal Update 1* 2 minute walking test distance of 150' 2* sit/stand with use of 1 UE 10-13-24 d/c goals not met: 50' and use of 2 UE Target Visit 10 Progress Not Met
--- NOTE | 2024-10-13 15:24 | PTOPDC ---
Assessment and note entered by Clemencia Quintero, PT Assessment Status Discharge ICD-10 Condition Codes (PT) Radiculopathy, lumbar region M54.16,Difficulty Walking R26.2,Abnormalities of gait and mobility R26.9,Weakness R53.1 Onset June 2024 Subjective Information still having back and L leg pain; having a bad day today; he fell on October 05 and , then went to hospital and just got home last night; dr at the hospital wants him to go for part day therapy where he stays there for 4 hours, 3 days/ week; so need to stop therapy here so can go there. Reported Pain Level Pain Score Self Report Additional Pain Score Comments pain range in the past week: 6-8/10; low back with radicular to L ankle most of the time Assessment PT Clinical Summary Mamadou has received 7 PT sessions. He canceled 2 appointments. He was in the hospital for 6 days due to fall and increase back pain-- just returned home yesterday. Next week is going to day therapy program for 4 hours of therapy, 3 days/week. Today, with assessment: 2 minute walking test distance of 50' with wheeled walker and maximum walking distance of 55'; limited supine/sit transfer and mobility skills due to increase pain in back; education for HEP and gait during PT sessions. The goals were partially met. Discharge PT services. He is going to start a day therapy program and continue PT with it. Plan of Care PT Services Indicated No
== END 2024-10-13 16:37 | disposition home or self-care (01) ==
LOC: ANHPT 14:30
PROVIDERS: PCP Physician Assistant; Visit Provider Physician Assistant
DX: M54.16 Radiculopathy, lumbar region (principal)
CPT/HCPCS: 97110; 97162; 97530